=== PATIENT | male | born 1950 | race Caucasian/White ===

== ENCOUNTER 2020-10-27 14:52 | Outpatient (REF) | payer OTHER, SELFPAY ==
[2020-10-28 11:31] LABS: SARS COV2 PCR INHOUSE NEGATIVE (Negative)
== END 2020-10-27 14:53 | disposition home or self-care (01) ==
LOC: HO.LAB 14:52
PROVIDERS: Visit Provider Internal Medicine
DX: Z20.822 Contact with and (suspected) exposure to COVID-19 (principal)
CPT/HCPCS: C9803; U0003

== ENCOUNTER → 2023-01-23 14:04 | Outpatient (BNVA) | payer SELFPAY | PROVIDERS: PCP Nurse Practitioner Family; Visit Provider Surgery | DX: K40.90 Unilateral inguinal hernia, without obstruction or gangrene, not specified as recurrent (principal) | CPT/HCPCS: 99202 ==

== ENCOUNTER 2023-02-12 11:02 | Day surgery (SDC) | payer SELFPAY ==
[2023-02-08 13:31] VITALS: BMI 22.4
--- NOTE | 2023-02-11 09:01 | MHC.SHP ---
Pre-Procedural Eval Section A Date of Service: 02/11/23 The patient is an INPATIENT: No Changes since office visit: No Cold of Flu in the past 2 weeks, No New Medical Problems, No Changes in Medication and No Patient answered all questions The History & Physical has been completed within 30 days and I have reviewed it.: Yes Section B Chief Complaint: Unilateral inguinal hernia, without obstruction or Allergies: Allergies Allergy/AdvReac Type Severity Reaction Status Date / Time No Known Allergies Allergy Verified 01/23/23 14:13 Plan I have reviewed the history and physical and performed a pertinent physical examination on my patient. No changes have occurred unless specified. Time Spent With Patient Time: Total time managing care of this patient today ____ minutes.
--- NOTE | 2023-02-11 11:07 | HO.ANESPROP2 ---
Documented by User: Sujatha Lake NP 02/11/23 11:09 HPI - Anesthesia Eval Consult details Narrative: 73yo M for Left Hernia Repair Inguinal open with mesh PMFSH Active Problems Active Problems: All Active Problems (Updated 01/23/23 @ 14:37 by Jovi Galvan MD) Left inguinal hernia (Acute) Past Medical History Medical History Left inguinal hernia Smoker Surgical History Surgical History History of hernia repair Social History Social History Housing: Apartment Alcohol intake: current Alcohol intake frequency: does not drink Patient Tobacco Use Status: Current everyday Tobacco user Tobacco use type: Cigarette Cigarette Packs Per Day: 0.5 Cigarettes Per Day: 7 e-Cigarette/Vaping Use: Never Used Second Hand Smoke Exposure: No Use of substances other than those prescribed or required for medical reasons: No Are you DNR?: No Advance Directives: No Advance Directives Information Provided: Yes Advance Directives on File: No service: No Current occupational status: retired Current occupational exposures/hazards: No Cognitive needs: No Hearing needs: No Vision needs: No Meds Allergies Allergy/AdvReac Type Severity Reaction Status Date / Time No Known Allergies Allergy Verified 01/23/23 14:13 Home Medications Medication Instructions Recorded Confirmed Last Taken Type No Known Home Meds 01/14/23 02/08/23 Unknown History Exam Exam Date and Time: February 11, 2023 1107 Height,Weight and Vital Signs: Height 5 ft 9 in Weight 68.946 kg Assessment and Plan Assessment Anesthesia Assessment: Chart Reviewed Documented by User: Karon Bruno MD 02/12/23 12:18 PMFSH Active Problems Active Problems: All Active Problems (Updated 02/12/23 @ 12:05 by Karon Bruno MD) Left inguinal hernia (Acute) Smoker. Last cigarette this am Past Medical History Medical History Left inguinal hernia Smoker Family History Family history of problems with anesthesia: No Surgical History Surgical History History of hernia repair History of Problems with Anesthesia: Yes (Had unpleasant vivid dreams after) Social History Social History Housing: Apartment Alcohol intake: current Alcohol intake frequency: does not drink Patient Tobacco Use Status: Current everyday Tobacco user Tobacco use type: Cigarette Cigarette Packs Per Day: 0.5 Cigarettes Per Day: 7 e-Cigarette/Vaping Use: Never Used Second Hand Smoke Exposure: No Use of substances other than those prescribed or required for medical reasons: No Are you DNR?: No Advance Directives: No Advance Directives Information Provided: Yes Advance Directives on File: No service: No Current occupational status: retired Current occupational exposures/hazards: No Cognitive needs: No Hearing needs: No Vision needs: No Meds Allergies Allergy/AdvReac Type Severity Reaction Status Date / Time No Known Allergies Allergy Verified 01/23/23 14:13 Home Medications Medication Instructions Recorded Confirmed Last Taken Type No Known Home Meds 01/14/23 02/08/23 Unknown History Exam Height,Weight and Vital Signs: Height 5 ft 9 in Weight 68.946 kg Vital Signs Temp Pulse Resp BP Pulse Ox O2 Del Method 02/12/23 11:41 98.8 F 87 16 143/76 H 96 Room Air Airway Mallampati Class: II TM Dist: >3cm Neck ROM: Full Loose/Missing/Broken Teeth: No (Numerous dental implants. Denies broken, loose, missing teeth) Heart: RRR Lungs: CTAB Assessment and Plan Assessment Anesthesia Assessment: Anesthesia Plan Discussed Final Anesthetic Review Family History of Problems with Anesthesia: No History of Problems with Anesthesia: Yes (Had unpleasant vivid dreams after) NPO: Yes ASA Class: II Final Preanesthetic Review: No Changes in Pt Med Stat, Meds/Allgs Chart Reviewed, Consent Obtained/Reviewed and Anes Risks/Benef Reviewed Patient Risk: Low Procedure Risk: Low Assessment/Block/Sedation in SS: Assess/Block/Sedation-SS Anesthetic Plan Anesthetic Plan: GA and MAC: Disposition: Standard PACU
[2023-02-12 11:41] VITALS: BP 143/76; PULSE 87; RESP 16; TEMP 37.1; O2SAT 96
[2023-02-12] MEDS: Lactated Ringers 1,000 ML 100 ML IVCONT (11:52)
--- NOTE | 2023-02-12 13:48 | W.PM.OPN ---
Operative Note Operative Note Date of Service: 02/12/23 Narrative: Preoperative diagnosis: [] Symptomatic left inguinal hernia Postop diagnosis: [] Same Procedure [] open repair with Bard mesh left inguinal hernia Surgeon: [] Cole Organizational Effectiveness Consultant: [] WILLIAM Soria Type of Anesthesia: [] MAC Indication for surgery: [] Very large indirect left inguinal hernia. No direct hernia demonstrated. Findings: [] Patient brought to the operating room, placed on the operative table in a supine position, after adequate level of MAC anesthesia was induced, the left groin was prepped and draped in usual sterile fashion preemptive 0.5 Marcaine/1% lidocaine infiltration of the ileo- inguinal nerve as well as the over the incision site was performed. A small left para inguinal incision was made and carried down through skin, subcutaneous tissue, Ranjit's fascia. External oblique fibers were opened in their direction with care to isolate and preserve the ilioinguinal nerve throughout the procedure. Spermatic cord was identified and retracted from the field. No direct hernia was demonstrated. A very large indirect hernia sac was from the spermatic cord and reduced. A Bard plug was placed in this indirect defect, and sutured inferiorly to the inguinal ligament, and superiorly to the transversalis fascia using interrupted 0 Ethibond suture. At completion procedure, mesh was in good position with no gaps and also covereed the inguinal floor completely. Wound was irrigated, secured hemostasis, and closed in the following manner; external oblique fascia was reapproximated using running 2-0 Vicryl sutures. Ranjit's fascia was closed using interrupted 3-0 Vicryl sutures. Interrupted inverted deep dermal 3-0 Vicryl sutures followed by running subcuticular 4-0 Vicryl sutures were placed. Steri-Strips and sterile dressings were applied. Ipsilateral testicles intrascrotal at completion the procedure. Sponge, needle, and instrument counts were reported to be correct. Patient tolerated the procedure well and emerged anesthesia stable condition. EBL minimal
[2023-02-12 13:56] VITALS: BP 108/63; PULSE 64; RESP 16; TEMP 36.6; O2SAT 98
[2023-02-12 14:10] VITALS: BP 134/75; PULSE 73; RESP 16; O2SAT 98
== END 2023-02-12 15:16 | disposition home or self-care (01) ==
PROVIDERS: Visit Provider Surgery
PROC: (CPT 49505; principal; 2023-02-12 12:30)
DX: K40.90 Unilateral inguinal hernia, without obstruction or gangrene, not specified as recurrent (principal)
CPT/HCPCS: 49505; C1781; J0690; J2250; J2795; J3010

== ENCOUNTER → 2023-02-12 11:02 | Outpatient (BNV) | payer SELFPAY | PROVIDERS: Visit Provider Surgery | DX: K40.90 Unilateral inguinal hernia, without obstruction or gangrene, not specified as recurrent (principal) | CPT/HCPCS: 49505 ==

== ENCOUNTER 2023-02-22 11:15 | Outpatient (AMB) | payer SELFPAY ==
[2023-02-22 11:20] VITALS: BP 130/87; PULSE 104
--- NOTE | 2023-02-22 11:20 | A.OFFVIS_ITS ---
Intake Vital Signs 02/22/23 11:20 Weight 150 lb BP 130/87 Blood Pressure Location Rt brachial Position Sitting Pulse 104 H Intake Visit Reasons: S/P LIH repair w/mesh Intake Note: Patient here s/p LIH repair w/mesh. Patient reports incisions healing well. Denies bleeding or oozing. Never took pain meds. Autocad Designer Required: No Accompanied by: Self / Same As Patient Allergies No Known Allergies Allergy (Verified 02/22/23 11:22) HPI HPI Comments History of Present Illness Details Patient presents for follow-up. Aside from mild incisional discomfort is doing well. He has tolerated diet. He is having normal bowel habits.. He is increasing his activity level. [facility] Medical History Left inguinal hernia Smoker Surgical History History of hernia repair Social History Housing: Apartment Alcohol intake: current Alcohol intake frequency: does not drink Patient Tobacco Use Status: Current everyday Tobacco user Tobacco use type: Cigarette Cigarette Packs Per Day: 0.5 Cigarettes Per Day: 7 e-Cigarette/Vaping Use: Never Used Second Hand Smoke Exposure: No service: No Current occupational status: retired Current occupational exposures/hazards: No Cognitive needs: No Hearing needs: No Vision needs: No Physical Exam Vital Signs: Last Vital Signs Pulse 104 H 02/22/23 11:20 BP 130/87 02/22/23 11:20 GI Other: Abdomen soft. Wound clean dry and intact Assessment & Plan Assessment & Plan (1) Left inguinal hernia: Code(s): K40.90 - Unilateral inguinal hernia, without obstruction or gangrene, not specified as recurrent Plan Patient has been given local wound instructions, and will follow-up p.r.n. Coding Level of Care Code Global (15298) Diagnoses Left inguinal hernia K40.90
== END 2023-02-22 11:54 | disposition home or self-care (01) ==
PROVIDERS: PCP Nurse Practitioner Family; Visit Provider Surgery
DX: K40.90 Unilateral inguinal hernia, without obstruction or gangrene, not specified as recurrent (principal)
CPT/HCPCS: 99024

== ENCOUNTER → 2023-02-22 11:15 | Outpatient (BNVA) | payer SELFPAY | PROVIDERS: PCP Nurse Practitioner Family; Visit Provider Surgery ==

== ENCOUNTER 2023-03-18 09:35 | Outpatient (AMB) | payer MEDICARE, SELFPAY ==
[2023-03-18 09:32] VITALS: BP 102/68; PULSE 90; O2SAT 98; BMI 22.1
--- NOTE | 2023-03-18 09:32 | MHC.PC.OV ---
Vital Signs 03/18/23 09:32 Height 5 ft 9 in Weight 150 lb BMI 22.1 BP 102/68 Blood Pressure Location Lt brachial Position Sitting Pulse 90 Pulse Source Pulse Oximeter Temp Source Skin Pulse Oximetry (%) 98 Oxygen Delivery Method Room Air Intake Visit Reasons: 03/25 RT eye 04/08 LT eye Cataract Surgery Intake Note: Patient is here for a Pre-op for Cataract Surgery scheduled with Dr. Villar on 03/25 RT and 04/08 LT Director Of Annual Giving Required: No Accompanied by: Self / Same As Patient Allergies No Known Allergies Allergy (Verified 03/18/23 09:35) Tobacco use date assessed: 03/18/23 Fall risk assessment: No Falls in past year Last assessed Fall Risk: 03/18/23 Dental Screening Dental Screen Date: 03/18/23 Did you have a dental visit in the last 12 months?: Yes Did you have a dental problem in the last 6 months where you did not have access to dental care?: No Was dental information given to patient?: Patient has dentist HPI 03/25 RT eye 04/08 LT eye Cataract Surgery HPI Details having bilat cataracts; healthy on no meds PFSH Medical History Left inguinal hernia Smoker Surgical History (Updated 02/26/23 @ 08:34 by Shefali Gil RN) History of hernia repair Social History Housing: Apartment Alcohol intake: current Alcohol intake frequency: does not drink Patient Tobacco Use Status: Current everyday Tobacco user Tobacco use type: Cigarette Cigarette Packs Per Day: 0.5 Cigarettes Per Day: 7 e-Cigarette/Vaping Use: Never Used Second Hand Smoke Exposure: No service: No Current occupational status: retired Current occupational exposures/hazards: No Cognitive needs: No Hearing needs: No Vision needs: No Questionnaire Thrive Questionnaire Date Thrive assessed: 01/14/23 AUDIT C Alcohol Use Questionnaire (AUDIT-C) 1. How often do you have a drink containing alcohol?: Never 3. How often do you have six or more drinks on one occasion?: Never Total Score: 0 LYNDSEY-7 AMB Questionnaire LYNDSEY-7 Date LYNDSEY - 7 assessed: 01/14/23 Source: Developed by Drs. Kem Bass, Karina Lucas, Chavo Orozco and colleagues, with an educational sofia from [employer]. Review of Systems Const Denies chills, Denies fatigue, Denies headache(s) and Denies weight loss Eyes Denies change in vision, Denies diplopia and Denies eye pain ENT Denies vertigo, Denies dizziness, Denies headache(s) and Denies nasal discharge Card Denies chest pain, Denies rapid heart rate and Denies dyspnea on exertion Resp Denies chest congestion, Denies cough, Denies pain with cough and Denies dyspnea on exertion GI Denies abdominal pain, Denies hematochezia and Denies change in bowel habits Musc Denies myalgias, Denies arthralgias and Denies joint swelling Skin/Breast Denies lesions and Denies unusual bruising Neuro Denies vertigo, Denies dizziness, Denies headache(s) and Denies focal weakness Endo Denies fatigue Physical exam (Primary Care) Vital Signs: Last Vital Signs Pulse 90 03/18/23 09:32 BP 102/68 03/18/23 09:32 Pulse Ox 98 03/18/23 09:32 Oxygen Delivery Method Room Air 03/18/23 09:32 BMI result Body Mass Index 22.1 Tobacco/Smoking Status: Tobacco use Status Tobacco use date assessed 03/18/23 03/18/23 09:39 Patient Tobacco Use Status Current everyday Tobacco 03/18/23 09:39 Tobacco use type Cigarette 03/18/23 09:39 e-Cigarette/Vaping Use Never Used 03/18/23 09:39 Thrive Assessment: Date of Thrive Assessment Date Thrive assessed 01/14/23 03/18/23 09:39 Const General: cooperative, healthy appearing and no acute distress Orientation/consciousness: oriented to person, oriented to place and oriented to time [facility] Head: Yes normal to inspection, Yes normocephalic and Yes atraumatic Mouth: Normal oral and palatal mucosa present and tongue normal Throat: Yes posterior oropharynx normal and Yes uvula midline Eyes General: appearance normal, both eyes and all related structures Neck Neck: Yes normal visual inspection, Yes full ROM and Yes no lymphadenopathy Thyroid: Thyroid normal Carotids: normal carotid upstroke Chest Chest palpation & inspection: normal inspection of the chest Resp Effort & Inspection: normal respiratory effort and able to speak in complete sentences Auscultation: clear to auscultation bilaterally Cardio Jugular venous distension: no JVD Palpation: normal PMI Rate: regular rate Rhythm: regular rhythm Heart sounds: S1 normal heart sound present and S2 normal heart sound present GI Inspection: Yes normal to inspection Palpation (GI): Soft to palpation and No hepatosplenomegaly present Auscultation: normal bowel sounds General: Yes no CVA tenderness Back/Spine/Pelvis Back: no CVA tenderness Skin General skin exam: no rashes or lesions noted Neuro General: oriented to person, oriented to place and oriented to time Extrem General: Yes normal to inspection and Yes full ROM Assessment and Plan Assessment & Plan (1) Preop exam for internal medicine: Code(s): Z01.818 - Encounter for other preprocedural examination Plan: healthy; low risk for cardiovascular complications; cleared for surgery Coding Level of Care Code Est Pt Level 4 (41668) Diagnoses Preop exam for internal medicine Z01.818
== END 2023-03-18 09:59 | disposition home or self-care (01) ==
PROVIDERS: Visit Provider Internal Medicine
DX: Z01.818 Encounter for other preprocedural examination (principal)
CPT/HCPCS: 99214

== ENCOUNTER 2023-03-25 08:56 | Day surgery (SDC) | payer MEDICARE, OTHER, SELFPAY ==
[2023-03-20 08:49] VITALS: BMI 22.1
--- NOTE | 2023-03-22 08:25 | MHC.SHP ---
Pre-Procedural Eval Section A Date of Service: 03/22/23 The patient is an INPATIENT: No Changes since office visit: No Cold of Flu in the past 2 weeks, No New Medical Problems, No Changes in Medication and No Patient answered all questions The History & Physical has been completed within 30 days and I have reviewed it.: Yes Section B Chief Complaint: Age-related nuclear cataract, right eye Allergies: Allergies Allergy/AdvReac Type Severity Reaction Status Date / Time No Known Allergies Allergy Verified 03/18/23 09:35 Plan Diagnosis/Plan: Unchanged I have reviewed the history and physical and performed a pertinent physical examination on my patient. No changes have occurred unless specified. Time Spent With Patient Time: Total time managing care of this patient today ____ minutes.
--- NOTE | 2023-03-22 09:42 | HO.ANESPROP2 ---
Documented by User: Sujatha Lake NP 03/22/23 09:42 HPI - Anesthesia Eval Consult details Narrative: 73yo M for Right Cataract Extraction IOL Insertion Medically optimized No previous cataract on record [facility] Active Problems Active Problems: All Active Problems (Updated 02/26/23 @ 08:34 by Shefali Gil RN) Preop exam for internal medicine (Acute) Left inguinal hernia (Acute) Past Medical History Medical History Left inguinal hernia Smoker Family History Family history of problems with anesthesia: No Surgical History Surgical History (Updated 02/26/23 @ 08:34 by Shefali Gil RN) History of hernia repair History of Problems with Anesthesia: Yes (Had unpleasant vivid dreams after) Social History Social History Housing: Apartment Alcohol intake: current Alcohol intake frequency: does not drink Patient Tobacco Use Status: Current everyday Tobacco user Tobacco use type: Cigarette Cigarette Packs Per Day: 0.5 Cigarettes Per Day: 10 e-Cigarette/Vaping Use: Never Used Second Hand Smoke Exposure: No Use of substances other than those prescribed or required for medical reasons: No Advance Directives: No Advance Directives Information Provided: Yes (brochure mailed) Advance Directives on File: No service: No Current occupational status: retired Current occupational exposures/hazards: No Cognitive needs: No Hearing needs: No Vision needs: No Meds Allergies Allergy/AdvReac Type Severity Reaction Status Date / Time No Known Allergies Allergy Verified 03/18/23 09:35 Home Medications Medication Instructions Recorded Confirmed Last Taken Type No Known Home Meds 03/18/23 03/20/23 Unknown History Exam Exam Date and Time: March 22, 2023 0942 Height,Weight and Vital Signs: Height 5 ft 9 in Weight 68.039 kg Assessment and Plan Assessment Anesthesia Assessment: Chart Reviewed Final Anesthetic Review Family History of Problems with Anesthesia: No History of Problems with Anesthesia: Yes (Had unpleasant vivid dreams after) Documented by User: Pedro Garrett MD 03/25/23 15:49 [facility] Past Medical History Medical History Left inguinal hernia Smoker Surgical History Surgical History (Updated 02/26/23 @ 08:34 by Shefali Gil RN) History of hernia repair Social History Social History Housing: Apartment Alcohol intake: current Alcohol intake frequency: does not drink Patient Tobacco Use Status: Current everyday Tobacco user Tobacco use type: Cigarette Cigarette Packs Per Day: 0.5 Cigarettes Per Day: 10 e-Cigarette/Vaping Use: Never Used Second Hand Smoke Exposure: No Use of substances other than those prescribed or required for medical reasons: No Advance Directives: No Advance Directives Information Provided: Yes (brochure mailed) Advance Directives on File: No service: No Current occupational status: retired Current occupational exposures/hazards: No Cognitive needs: No Hearing needs: No Vision needs: No Meds Allergies Allergy/AdvReac Type Severity Reaction Status Date / Time No Known Allergies Allergy Verified 03/18/23 09:35 Home Medications Medication Instructions Recorded Confirmed Last Taken Type No Known Home Meds 03/18/23 03/20/23 Unknown History Exam Airway Mallampati Class: IV Loose/Missing/Broken Teeth: Yes Assessment and Plan Final Anesthetic Review NPO: Yes ASA Class: II Final Preanesthetic Review: Meds/Allgs Chart Reviewed, Consent Obtained/Reviewed and Anes Risks/Benef Reviewed Patient Risk: Intermediate Procedure Risk: Intermediate Anesthetic Plan Anesthetic Plan: MAC: and Agree w/ Assess. and Plan Disposition: Standard PACU
[2023-03-25 09:45] VITALS: BP 140/70; PULSE 78; RESP 16; TEMP 36.7; O2SAT 97
[2023-03-25] MEDS: Lactated Ringers 500 ML 50 ML IV (09:46)
[2023-03-25] MEDS: Tetracaine HCl/PF 0.5% Oph Sol 4 ML DROPS 1 DROP EYE-RIGHT (09:46)
[2023-03-25] MEDS: Cyclopentolate 1 % Ophth Sol 2 ML DRPBTL 1 DROP EYE-RIGHT ×3 (09:47→09:53)
[2023-03-25] MEDS: Ketorolac Tromethamine 0.5% Op 5 ML DROPS 1 DROP EYE-RIGHT ×3 (09:48→09:54)
[2023-03-25] MEDS: Tropicamide 1 % Ophth Sol 3 ML BTL 1 DROP EYE-RIGHT ×3 (09:48→09:54)
[2023-03-25] MEDS: Phenylephrine HCL 2.5% Oph SoL 2 ML BOTTLE 1 DROP EYE-RIGHT ×3 (09:51→09:55)
--- NOTE | 2023-03-25 11:05 | HO.PNOPHT ---
Ophthalmology Procedure Procedure Date of Service: 03/25/23 Ophthalmology Viscoelastic: Briana Cleary Dual Pack Pro Ophthalmology Lenses: TECPRECIOUS [id number] (23) Procedure Notes: PREOPERATIVE DIAGNOSIS: Decreased visual acuity right eye secondary to cataract POSTOPERATIVE DIAGNOSIS: Same PROCEDURE: Right cataract extraction with intraocular lens insertion SURGEON: David Villar M.D. ANESTHESIA: Topical/MAC ESTIMATED BLOOD LOSS: None COMPLICATIONS: None After obtaining informed consent, the patient was brought to the operating room suite and placed in the supine position. After adequate sedation per anesthesia, topical drops of Tetracaine were given to the right eye. The eye was then prepped and draped in the usual sterile fashion. The operating room microscope was then positioned over the operative eye and a lid speculum placed. A paracentesis was created. Viscoelastic was then instilled into the anterior chamber. A three plane incision was then created temporally, utilizing a 2.85 mm keratome. Capsulotomy forceps were then utilized to create a circular tear capsulotomy. Hydrodissection and hydrodelineation were carried out until adequate mobilization of the nucleus occurred. Phacoemulsification was then utilized to remove the dense central nucleus followed by removal of the cortical material utilizing the automated aspiration irrigation unit. Viscoelastic was instilled into the posterior capsular bag followed by placement of a posterior chamber intraocular lens without difficulty. The residual Viscoelastic was then removed utilizing the automated IA machine. The wound was checked and found to be watertight. The patient tolerated the procedure well and the lid speculum was removed. Intracameral injection of Vigamox 0.1 mL followed by a subtenon injection of Kenalog-40 0.2 mL were administered. The patient will be seen in the a.m.
[2023-03-25 11:25] VITALS: BP 123/74; PULSE 75; RESP 19; TEMP 36.8; O2SAT 100
== END 2023-03-25 11:40 | disposition home or self-care (01) ==
PROVIDERS: Visit Provider Ophthalmology
PROC: (CPT 66985; principal; 2023-03-25 11:20)
DX: H25.11 Age-related nuclear cataract, right eye (principal); H54.7 Unspecified visual loss; H52.13 Myopia, bilateral; F17.210 Nicotine dependence, cigarettes, uncomplicated; F19.11 Other psychoactive substance abuse, in remission
CPT/HCPCS: 66984; J3010; J3301; V2632

== ENCOUNTER 2023-04-08 09:00 | Day surgery (SDC) | payer MEDICARE, OTHER, SELFPAY ==
[2023-03-20 08:52] VITALS: BMI 22.1
--- NOTE | 2023-04-05 07:56 | MHC.SHP ---
Pre-Procedural Eval Section A Date of Service: 04/05/23 The patient is an INPATIENT: No Changes since office visit: No Cold of Flu in the past 2 weeks, No New Medical Problems, No Changes in Medication and No Patient answered all questions The History & Physical has been completed within 30 days and I have reviewed it.: Yes Section B Chief Complaint: Age-related nuclear cataract, left eye Allergies: Allergies Allergy/AdvReac Type Severity Reaction Status Date / Time No Known Allergies Allergy Verified 03/18/23 09:35 Plan Diagnosis/Plan: Unchanged I have reviewed the history and physical and performed a pertinent physical examination on my patient. No changes have occurred unless specified. Time Spent With Patient Time: Total time managing care of this patient today ____ minutes.
[2023-04-08] MEDS: Tetracaine HCl/PF 0.5% Oph Sol 4 ML DROPS 1 DROP EYE-LEFT (09:49)
[2023-04-08] MEDS: Cyclopentolate 1 % Ophth Sol 2 ML DRPBTL 1 DROP EYE-LEFT ×3 (09:49→09:58)
[2023-04-08] MEDS: Tropicamide 1 % Ophth Sol 3 ML BTL 1 DROP EYE-LEFT ×3 (09:49→09:58)
[2023-04-08] MEDS: Phenylephrine HCL 2.5% Oph SoL 2 ML BOTTLE 1 DROP EYE-LEFT ×3 (09:49→09:58)
[2023-04-08] MEDS: Ketorolac Tromethamine 0.5% Op 5 ML DROPS 1 DROP EYE-LEFT ×3 (09:50→09:58)
[2023-04-08 10:00] VITALS: BP 127/79; PULSE 84; RESP 18; TEMP 36.5; O2SAT 99
--- NOTE | 2023-04-08 10:15 | PC.NURSE ---
patient is not having anesthesia today.
--- NOTE | 2023-04-08 10:43 | HO.PNOPHT ---
Ophthalmology Procedure Procedure Date of Service: 04/08/23 Ophthalmology Viscoelastic: Healrachael Duet Dual Pack Pro Ophthalmology Lenses: TECNIS [id number] (22.5) Procedure Notes: PREOPERATIVE DIAGNOSIS: Decreased visual acuity left eye secondary to cataract POSTOPERATIVE DIAGNOSIS: Same PROCEDURE: Left cataract extraction with intraocular lens insertion SURGEON: David Villar M.D. ANESTHESIA: Topical ESTIMATED BLOOD LOSS: None COMPLICATIONS: None After obtaining informed consent, the patient was brought to the operation room suite and placed in the supine position. After adequate sedation per anesthesia, topical drops of Tetracaine were given to the left eye. The eye was then prepped and draped in the usual sterile fashion. The operating room microscope was then positioned over the operative eye and a lid speculum placed. A paracentesis was created. Viscoelastic was then instilled into the anterior chamber. A three plane incision was then created temporally, utilizing a 2.85 mm keratome. Capsulotomy forceps were then utilized to create a circular tear capsulotomy. Hydrodissection and hydrodelineation were carried out until adequate mobilization of the nucleus occurred. Phacoemulsification was then utilized to remove the dense central nucleus followed by removal of the cortical material utilizing the automated aspiration irrigation unit. Viscoat elastic was instilled into the posterior capsular bag followed by placement of a posterior chamber intraocular lens without difficulty. The residual Viscoat elastic was then removed utilizing the automated IA machine. The wound was check and found to be watertight. The patient tolerated the procedure well and the lid speculum was removed. Intracameral injection of Vigamox 0.1 mL followed by a subtenon injection of Kenalog-40 0.2 mL were administered. The patient will be seen in the a.m.
[2023-04-08 11:04] VITALS: BP 128/78; PULSE 82; RESP 18; TEMP 36.6; O2SAT 99
== END 2023-04-08 11:12 | disposition home or self-care (01) ==
PROVIDERS: PCP Nurse Practitioner Family; Visit Provider Ophthalmology
PROC: (CPT 66985; principal; 2023-04-08 11:20)
DX: H25.12 Age-related nuclear cataract, left eye (principal); H52.13 Myopia, bilateral; F17.210 Nicotine dependence, cigarettes, uncomplicated
CPT/HCPCS: 66984; J3301; V2632

== ENCOUNTER 2023-08-06 07:57 | Outpatient (AMB) | payer MEDICARE, SELFPAY ==
[2023-08-06 08:06] VITALS: BP 138/72; PULSE 90; O2SAT 98; BMI 22.6
--- NOTE | 2023-08-06 08:06 | MHC.PC.OV ---
Vital Signs 08/06/23 08:06 Height 5 ft 9 in Weight 153 lb BMI 22.6 BP 138/72 Blood Pressure Location Lt brachial Position Sitting Pulse 90 Pulse Source Pulse Oximeter Pulse Oximetry (%) 98 Oxygen Delivery Method Room Air Intake Visit Reasons: sleep lab/ neurologist referrals Allergies No Known Allergies Allergy (Verified 08/07/23 05:39) Medication List - Last Reconciled 08/07/23 by Joe Reyna MD No Known Home Meds Tobacco use date assessed: 08/06/23 Fall risk assessment: No Falls in past year Last assessed Fall Risk: 08/06/23 Dental Screening Dental Screen Date: 08/06/23 Did you have a dental visit in the last 12 months?: Yes Did you have a dental problem in the last 6 months where you did not have access to dental care?: No Was dental information given to patient?: Patient has dentist HPI sleep lab/ neurologist referrals HPI Details 73-year-old male presents to the office wishing to discuss his medical health. I will be his primary care provider as his current provider has left the practice. Patient is reporting for the past month he is experiencing increasing drowsiness. It happens during the daytime. Symptoms began with tingling in the lip followed by extreme grogginess and then he falls asleep for 2 hours. He wakes up suddenly fatigue and the back of his neck is painful. Currently he has on no medications. Reports no urinary incontinence. No body injuries. Also begins to report that his neighbors are troubling him. He is convinced that they are initiating the above symptoms. He lives alone. Gives no history of mental health issues in the past. [facility] Medical History Hx of cataract Smoker Left inguinal hernia Surgical History History of hernia repair Social History Housing: Apartment Alcohol intake: current Alcohol intake frequency: does not drink Patient Tobacco Use Status: Current everyday Tobacco user Tobacco use type: Cigarette Cigarette Packs Per Day: 0.5 Cigarettes Per Day: 10 e-Cigarette/Vaping Use: Never Used Second Hand Smoke Exposure: No service: No Current occupational status: retired Current occupational exposures/hazards: No Cognitive needs: No Hearing needs: No Vision needs: Yes Questionnaire PHQ-9 Over the last 2 weeks, how often have you been bothered by any of the following problems? 1. Little interest or pleasure in doing things: not at all 2. Feeling down, depressed, or hopeless: not at all 3. Trouble falling or staying asleep, or sleeping too much: not at all 4. Feeling tired or having little energy: not at all 5. Poor appetite or overeating: not at all 6. Feeling bad about yourself - or that you are a failure or have let yourself or your family down: not at all 7. Trouble concentrating on things, such as reading the newspaper or watching television: not at all 8. Moving or speaking so slowly that other people could have noticed. Or the opposite - being so fidgety or restless that you have been moving around a lot more than usual: not at all 9. Thoughts that you would be better off or of hurting yourself in some way: not at all Total score: 0 Depression Screening Interpretation: Negative Depression Screening Done: Yes 24016 - PHQ-9 Billing: Yes Source: Developed by Drs. Kem Bass, Karina Lucas, Chavo Orozco and colleagues, with an educational sofia from [employer] Thrive Questionnaire Date Thrive assessed: 08/06/23 I am a: Patient What is your living situation today?: I have a steady place to live Within the past 12 months, did the food you bought not last and you didn't have the money to get more?: Never true Within the past 12 months, did you worry whether your food would run out before you got money to buy more?: Never true Do you have trouble paying for medicines?: No Do you have trouble getting transportation to medical appointments?: No Do you have trouble paying your heating and electricity bill?: No Do you have trouble taking care of your child, family member or friend?: No Do you have trouble with day-to-day activities such as bathing, preparing meals, shopping, managing finances, etc.?: No Are you currently unemployed and looking for a job?: No Are you interested in more education?: No Currently or been in a relationship where the following occur: no concerns reported AUDIT C Alcohol Use Questionnaire (AUDIT-C) 1. How often do you have a drink containing alcohol?: Never 3. How often do you have six or more drinks on one occasion?: Never Total Score: 0 LYNDSEY-7 AMB Questionnaire LYNDSEY-7 Date LYNDSEY - 7 assessed: 08/06/23 Feeling nervous, anxious, or on edge: 0 = Not at all Not being able to stop or control worryin = Not at all Worrying too much about different things: 0 = Not at all Trouble relaxin = Not at all Being so restless that it is hard to sit still: 0 = Not at all Becoming easily annoyed or irritable: 0 = Not at all Feeling afraid as if something awful might happen: 0 = Not at all Total LYNDSEY-7 score (0-4 normal; 5-9 mild; 10-14 moderate; 15-21 severe): 0 Source: Developed by Drs. Kem Bass, Karina Lucas, Chavo Orozco and colleagues, with an educational sofia from [employer] Physical exam (Primary Care) Vital Signs: Last Vital Signs Pulse 90 08/06/23 08:06 BP 138/72 08/06/23 08:06 Pulse Ox 98 08/06/23 08:06 Oxygen Delivery Method Room Air 08/06/23 08:06 BMI result Body Mass Index 22.6 Tobacco/Smoking Status: Tobacco use Status Tobacco use date assessed 08/06/23 08/06/23 08:14 Patient Tobacco Use Status Current everyday Tobacco 08/06/23 08:14 Tobacco use type Cigarette 08/06/23 08:14 e-Cigarette/Vaping Use Never Used 08/06/23 08:14 PHQ-9: PHQ-9 Score PHQ-9: Total score 0 08/06/23 08:14 Depression Screening Interpretation: Negative Thrive Assessment: Date of Thrive Assessment Date Thrive assessed 08/06/23 08/06/23 08:14 Currently or been in a relationship where the following occur: no concerns reported Const General: cooperative and healthy appearing Nutritional Appearance: well nourished Orientation/consciousness: patient oriented x3 Limitations: no limitations HENMT Head: Yes normal to inspection Eyes General: appearance normal, both eyes and all related structures Neck Neck: Yes normal visual inspection Chest Chest palpation & inspection: normal palpation of entire chest wall Resp Effort & Inspection: normal respiratory effort Neuro General: patient oriented x3 Assessment and Plan Assessment & Plan (1) Drowsiness: Code(s): R40.0 - Somnolence Plan: Seizure disorder has to be ruled out. A neurology consult will be placed. With this degree of paranoia, I suspect he may be having an underlying mental health issues that patient has not admitted to me. Once organic brain disease is ruled out, I will initiate mental health treatment. Coding Level of Care Code Est Pt Level 4 (75381) Diagnoses Drowsiness R40.0
== END 2023-08-06 08:41 | disposition home or self-care (01) ==
PROVIDERS: PCP Nurse Practitioner Family; Visit Provider Internal Medicine
DX: R40.0 Somnolence (principal)
CPT/HCPCS: 99214

== ENCOUNTER 2023-08-07 03:29 | Emergency (ER) | payer MEDICARE, SELFPAY ==
[2023-08-07 03:39] VITALS: BP 138/77; PULSE 104; RESP 18; TEMP 36.8; O2SAT 99; BMI 22.1
[2023-08-07 03:58] LABS: MANUAL DIFF FLAG NO
[2023-08-07 04:02] LABS: Basophils Percent Auto 0.4 % (0-2); Eosinophils Absolute Auto 0.3 X10*3/uL (0.0-0.4); Eosinophils Percent Auto 3.4 % (0-4); Hematocrit 46.9 % (42.0-52.0); Hemoglobin 15.8 g/dl (14.0-18.0); Imm Gran Abs Auto 0.03 X10*3/uL (0.00-0.03); Imm Gran Pct Auto 0.4 % (0.0-0.4); Lymphocytes Absolute Auto 2.7 X10*3/uL (1.2-4.9); Lymphocytes Percent Auto 32.9 % (20-40); Mean Corpuscular HGB Conc 33.7 g/dl (31.0-36.0); Mean Corpuscular Volume 95.1 fL (80.0-98.0); Mean Platelet Volume 8.6 fL (9.4-12.4); Monocytes Absolute Auto 0.7 X10*3/uL (0.1-1.2); Monocytes Percent Auto 8.8 % (2-11); Neutrophils Absolute Auto 4.5 x10*3/uL (2.0-8.3); Neutrophils Percent Auto 54.1 % (45-73); Platelet Count 273 X10*3/uL (160-400); Red Blood Count 4.93 X10*6/uL (4.60-5.80); Red Cell Distribution Width 13.5 % (11.0-16.0); White Blood Count 8.3 X10*3/uL (4.8-10.8)
[2023-08-07 04:15] LABS: Alanine Aminotransferase 21 U/L (0-40); Albumin Level 4.1 g/dL (3.5-5.0); Alkaline Phosphatase 74 U/L (39-117); Anion Gap 15 (12-20); Aspartate Amino Transferase 19 U/L (5-37); Bilirubin Total 0.3 mg/dL (0.0-1.0); Blood Urea Nitrogen 27 mg/dL (9-16); Calcium 9.5 mg/dL (8.4-10.2); Carbon Dioxide 25 mmol/L (22-29); Chloride 107 mmol/L (96-108); Creatinine Clr Calc Pharmacy 81.3; Estimated Glomerular Filt Rate > 60; Glucose Random 116 mg/dL (60-115); Potassium 4.8 mmol/L (3.3-5.1); Sodium 142 mmol/L (135-145)
--- NOTE | 2023-08-07 07:05 | ED.GENADULT ---
HPI - General Adult General Chief complaint: General Medical Stated complaint: Pt requested Blood test Time Seen by Provider: 08/07/23 07:05 Source: patient Mode of arrival: ambulatory Limitations: no limitations History of Present Illness HPI narrative: Patient no diagnosis of dementia or psychiatric disorder seen by PCP yesterday for nonspecific symptoms comes back here as he feels somebody poisoning him looking for some poison in his body paranoid about the situation feels lower lip tingling off and on with increased drowsiness does not have a good sleep sleeping only 2-3 hours a day denies any dementia no hallucinations but as paranoid about something wrong . Ambulatory in the ED Related Data Home Medications Medication Instructions Recorded Confirmed No Known Home Meds 03/18/23 03/20/23 Allergies Allergy/AdvReac Type Severity Reaction Status Date / Time No Known Allergies Allergy Verified 08/07/23 05:39 [facility] Past Medical History Onset Date is defined in the Problem List Problems that require an onset date and time if occurred within 24 hrs of arrival to the ED Aortic Dissection and Rupture; Neurologic impairment; Cardiopulmonary Arrest; Endotracheal Intubation; Insertion or Replacement of Mechanical Circulatory Assist Device Medical History Hx of cataract Smoker Left inguinal hernia Surgical History History of hernia repair Social History Social History Housing: Apartment Alcohol intake: current Alcohol intake frequency: does not drink Patient Tobacco Use Status: Current everyday Tobacco user Tobacco use type: Cigarette Cigarette Packs Per Day: 0.5 Cigarettes Per Day: 10 e-Cigarette/Vaping Use: Never Used Second Hand Smoke Exposure: No Advance Directives: No Advance Directives Information Provided: No service: No Current occupational status: retired Current occupational exposures/hazards: No Cognitive needs: No Hearing needs: No Vision needs: Yes Physical Exam ED Vital Signs: Vital Signs - 24 hr 08/07/23 03:39 Temperature 98.2 F Pulse Rate 104 H Respiratory Rate 18 Blood Pressure 138/77 Pulse Oximetry 99 Oxygen Delivery Method Room Air BMI result Body Mass Index 22.1 Appearance: Alert. Oriented X3. No acute distress. Eyes: PERRLA, No Nystagmus ENT: Pharynx normal. Oral Mucosa moist Neck: Normal inspection. Neck supple. CVS: Normal heart rate and rhythm. Pulses normal. Respiratory: No respiratory distress. Equal air entry bilateral, no wheezing/rales/rhonchi Abdomen: Soft and nontender. Bowel sounds are present, no mass palpable, no CVA tenderness Skin: Skin warm and dry. Normal skin color. Normal skin turgor. Extremities: No lower extremity edema. No calf tenderness Neuro: Oriented X 3. No motor deficit. No sensory deficit.No cerebellar signs , cranial nerves II-XII intact Medical Decision Making Medical Decision Making [facility] Narrative: Patient nonspecific symptoms/paranoia refused to new mini mental status exam refused CT scan of the head per trazodone by his PCP yesterday screening test was negative for dementia. Patient has a follow-up plan to see a neurologist patient need neuropsych evaluation refusing any care team evaluation at this time feels stable to go home. Will follow up as outpatient Lab Data [facility] Lab Attestation statement: I reviewed the patient's lab results. 08/07/23 03:53 08/07/23 03:53 Labs: Lab Results 08/07/23 Range/Units 03:53 WBC 8.3 (4.8-10.8) X10*3/uL RBC 4.93 (4.60-5.80) X10*6/uL Hgb 15.8 (14.0-18.0) g/dl Hct 46.9 (42.0-52.0) % MCV 95.1 (80.0-98.0) fL MCH 32.0 (27.0-33.0) pg MCHC 33.7 (31.0-36.0) g/dl RDW 13.5 (11.0-16.0) % Plt Count 273 (160-400) X10*3/uL MPV 8.6 L (9.4-12.4) fL Immature Gran % (Auto) 0.4 (0.0-0.4) % Neut % (Auto) 54.1 (45-73) % Lymph % (Auto) 32.9 (20-40) % Jay % (Auto) 8.8 (2-11) % Eos % (Auto) 3.4 (0-4) % Baso % (Auto) 0.4 (0-2) % Lymph # (Auto) 2.7 (1.2-4.9) X10*3/uL Jay # (Auto) 0.7 (0.1-1.2) X10*3/uL Eos # (Auto) 0.3 (0.0-0.4) X10*3/uL Baso # (Auto) 0.0 (0.0-0.2) X10*3/uL Abs Immat Gran (auto) 0.03 (0.00-0.03) X10*3/uL Absolute Neuts (auto) 4.5 (2.0-8.3) x10*3/uL Absolute Nucleated RBC 0.000 (0.0-0.012) X10*3/uL Nucleated RBC % (auto) 0.0 (0.0-0.2) /100WBC Sodium 142 (135-145) mmol/L Potassium 4.8 (3.3-5.1) mmol/L Chloride 107 (96-108) mmol/L Carbon Dioxide 25 (22-29) mmol/L Anion Gap 15 (12-20) BUN 27 H (9-16) mg/dL Creatinine 0.79 (0.5-1.4) mg/dL Estim Creat Clear Calc 81.3 Estimated GFR > 60 Random Glucose 116 H (60-115) mg/dL Calcium 9.5 (8.4-10.2) mg/dL Total Bilirubin 0.3 (0.0-1.0) mg/dL AST 19 (5-37) U/L ALT 21 (0-40) U/L Alkaline Phosphatase 74 (39-117) U/L Total Protein 7.0 (6.5-8.0) g/dL Albumin 4.1 (3.5-5.0) g/dL Discharge Plan Discharge Clinical Impression: Paranoia Patient Disposition: Home, Self-Care Instructions: Psychotic Disorder (ED) Additional Instructions: Your possibly have psychotic disorder/early dementia Your refused evaluation by crisis Follow-up with PCP and neurologist as scheduled Your blood workup did not show any acute abnormality Prescriptions: No Action No Known Home Meds
== END 2023-08-07 07:20 | disposition home or self-care (01) ==
PROVIDERS: Emergency Provider Internal Medicine
DX: F22 Delusional disorders (principal); R41.0 Disorientation, unspecified; F43.89 Other reactions to severe stress; F29 Unspecified psychosis not due to a substance or known physiological condition; F17.210 Nicotine dependence, cigarettes, uncomplicated
CPT/HCPCS: 36415; 80053; 85025; 99282; 99283

== ENCOUNTER 2023-08-24 12:22 | Inpatient (IN) | payer MEDICARE, SELFPAY ==
--- NOTE | ~2023-08-24 | CT_ITS ---
EXAMINATION: CT HEAD WITHOUT CONTRAST CLINICAL INFORMATION: New onset delusions. COMPARISON: None TECHNIQUE: Contiguous axial imaging was performed from the skull base to vertex without intravenous administration of contrast. This CT examination was performed using dose optimization techniques as appropriate, variously including the following: *Automated exposure control *Adjustment of mA and/or kV according to patient size (this includes techniques or standardized protocols for targeted exams where dose is matched to indication/reason for exam; i.e. extremities or head) *Use of iterative reconstruction technique DLP: 840 mGy-cm FINDINGS: There is no evidence of acute intracranial hemorrhage or edematous territorial infarction. A few foci of hypoattenuation in the periventricular and deep white matter are consistent with mild microangiopathy. Allison-white matter differentiation is preserved. Proportional prominence of the ventricles and sulcal spaces. No evidence for obstructive hydrocephalus. No abnormal mass effect or midline shift. No extra-axial fluid collections. No acute soft tissue or osseous abnormalities. The mastoid air cells and paranasal sinuses are clear. Bilateral lens extraction. CT/CT head/brain wo IV con IMPRESSION: No evidence of acute intracranial hemorrhage or edematous territorial infarction.
[2023-08-24 12:33] VITALS: BP 145/80; BP 152/82; PULSE 95; PULSE 97; RESP 20; TEMP 36.5; O2SAT 100; O2SAT 99; BMI 22.1
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
[2023-08-24 13:14] LABS: MANUAL DIFF FLAG NO
[2023-08-24 13:16] LABS: Basophils Percent Auto 0.4 % (0-2); Eosinophils Absolute Auto 0.2 X10*3/uL (0.0-0.4); Hematocrit 45.2 % (42.0-52.0); Hemoglobin 15.1 g/dl (14.0-18.0); Imm Gran Abs Auto 0.03 X10*3/uL (0.00-0.03); Imm Gran Pct Auto 0.4 % (0.0-0.4); Lymphocytes Absolute Auto 2.1 X10*3/uL (1.2-4.9); Lymphocytes Percent Auto 28.3 % (20-40); Mean Corpuscular HGB Conc 33.4 g/dl (31.0-36.0); Mean Corpuscular Hemoglobin 31.7 pg (27.0-33.0); Mean Platelet Volume 8.6 fL (9.4-12.4); Monocytes Absolute Auto 0.7 X10*3/uL (0.1-1.2); Monocytes Percent Auto 9.9 % (2-11); Neutrophils Absolute Auto 4.2 x10*3/uL (2.0-8.3); Platelet Count 245 X10*3/uL (160-400); Red Blood Count 4.76 X10*6/uL (4.60-5.80); Red Cell Distribution Width 13.6 % (11.0-16.0); White Blood Count 7.3 X10*3/uL (4.8-10.8)
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
[2023-08-24 13:40] LABS: Alanine Aminotransferase 36 U/L (0-40); Albumin Level 3.8 g/dL (3.5-5.0); Alkaline Phosphatase 70 U/L (39-117); Anion Gap 14 (12-20); Aspartate Amino Transferase 26 U/L (5-37); Blood Urea Nitrogen 23 mg/dL (9-16); Calcium 8.8 mg/dL (8.4-10.2); Carbon Dioxide 25 mmol/L (22-29); Chloride 108 mmol/L (96-108); Creatinine Clr Calc Pharmacy 85.6; Estimated Glomerular Filt Rate > 60; Ethanol < 10 mg/dL; Glucose Random 95 mg/dL (60-115); Potassium 4.4 mmol/L (3.3-5.1); Sodium 143 mmol/L (135-145); Total Protein 6.4 g/dL (6.5-8.0)
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
[2023-08-24 13:52] LABS: Acetaminophen LAB < 3 mcg/mL (<30); Salicylate < 5.0 mg/dL (15-30)
[2023-08-24 13:53] LABS: Bilirubin Total 0.2 mg/dL (0.0-1.0)
[2023-08-24 14:14] LABS: Appearance Urine Clear; Color Urine Yellow; Glucose Urine UA Negative (Negative); Leukocyte Esterase Urine Negative (Negative); Nitrite Urine Negative (Negative); PH 7.5 (5.0-9.0); Urine Blood Negative (Negative); Urine Ketones Negative (Negative); Urine Protein Negative (Neg-Trace)
[2023-08-24 14:34] LABS: Amphetamine Screen Urine Not Detected (Not Detect); Barbiturates, Urine Not Detected (Not Detect); Benzodiazepines Screen Urine Not Detected (Not Detect); Cannabinoid Screen Urine Not Detected (Not Detect); Cocaine Screen Urine Not Detected (Not Detect); Fentanyl, urine Not Detected (Not Detect); Opiate Screen Urine Not Detected (Not Detect); Phencyclidine Screen Urine Not Detected (Not Detect)
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
[2023-08-24] MEDS: Nicotine Polacrilex 2 MG GUM BUCCAL ×2 (15:23→19:21)
--- NOTE | 2023-08-24 16:14 | PC.NURSE ---
Pt hyperfocused on paying for today's visit. Stating I am a self paying individual, each person I see that is more money I have to pay . Pt continuously coming to nurses station to ask questions about process of care and how many people he needs to see so he can figure out how much he will be paying. Pt able to be re-directed back to his room to calm down
[2023-08-24 16:16] VITALS: RESP 14
--- NOTE | 2023-08-24 19:51 | MHC.CARE ---
CARE Team saw this pt and he is on a [id number] and is a ming bed search.
--- NOTE | 2023-08-24 20:05 | PC.NURSE ---
Pt states he is not prescribed any medications
[2023-08-24 20:44] VITALS: BP 141/79; PULSE 85; RESP 18; TEMP 37.2; O2SAT 97
--- NOTE | 2023-08-24 22:51 | PC.NURSE ---
pt had uneventful day, patient is now sleeping, respirations even and unlabored, no apparent distress. Plan of care for ming-psych bedsearch
--- NOTE | 2023-08-25 | ECG_ITS ---
Test Reason : MED CLEAR Blood Pressure : / mmHG Vent. Rate : 087 BPM Atrial Rate : 087 BPM P-R Int : 142 ms QRS Dur : 088 ms QT Int : 356 ms P-R-T Axes : 050 -07 028 degrees QTc Int : 428 ms Normal sinus rhythm Normal ECG No previous ECGs available Referred By: Eusebia Bowen Electronically Signed By:MARQUITA PENA MD
[2023-08-25] MEDS: Nicotine Polacrilex 2 MG GUM BUCCAL ×4 (01:26→18:32)
[2023-08-25 03:03] VITALS: BP 135/77; PULSE 85; RESP 16; TEMP 36.7; O2SAT 98
--- NOTE | 2023-08-25 08:12 | MHC.CARE ---
RAD Team conducted [place] ming bedsearch, unfortunately no beds are available statewide. RAD to continue bedsearch tomorrow (08/26) if deemed necessary
--- NOTE | 2023-08-25 11:04 | PC.NURSE ---
Assumed care of patient at 1045, patient is up ambulating independently around BH pod in no apparent distress. Conversing with staff and other patients without issue. Pt is now in CT with KEVIN Linn and security for a head CT scan.
[2023-08-25 12:45] LABS: COVID-19 Test Negative (Negative); IDNOW Serial# 08D9AD1C
[2023-08-25 13:51] VITALS: RESP 18
--- NOTE | 2023-08-25 19:08 | PC.NURSE ---
patient appears to remain at rest at present respirations are even and unlabored patient appears in no distress, will continue to monitor for safety.
[2023-08-25 20:11] VITALS: BP 110/73; PULSE 86; RESP 18; TEMP 37; O2SAT 97
[2023-08-26 03:14] VITALS: BP 124/76; PULSE 75; RESP 17; TEMP 36.7; O2SAT 95
[2023-08-26] MEDS: Nicotine Polacrilex 2 MG GUM BUCCAL ×4 (05:49→21:16)
[2023-08-26 10:21] VITALS: BP 114/73; PULSE 64; TEMP 36.8; O2SAT 97
--- NOTE | 2023-08-26 10:43 | MHC.CARE ---
CARE Team received additional collateral information from Jesenia Busch , [facility] co-response clinician she stated that there has been multiple encounters with Pt and [facility]PD related to complaints that his neighbors were harassing him. These complaints appears to be escalating; Pt has been confronting the neighbors cream dipper 3am confronting on them on what he perceived as harassment and at this time it not founded. Pt neighbors having filed a police report against Pt. pt will play his piano at cream dipper hours 3/4 am as means to retaliate on them. Pt has set up tape recorder in his apartment to tyr to record the individual messing with him. Pt has declined [facility] mental health services since early June 2023 when they first got involved.
--- NOTE | 2023-08-26 14:35 | PC.NURSE ---
Deni was OOB this shift and pleasant when engaged. Appetite is good and Deni is independent with all ADL's. No behavioral concerns. Deni advocating to DC but willing to sign a CV and transfer to the floor to be further evaluated.
[2023-08-26 14:46] VITALS: BP 116/65; PULSE 96; RESP 16; TEMP 36.6; O2SAT 98
--- NOTE | 2023-08-26 14:56 | PC.NURSE ---
pt arrived on the unit @ 14:35 via wheelchair on a CV. Skin check performed, vital taken and wnl. Pt shown to room and menu completed. Per Cary CERDA RN; his belongings are in the washer. They will bring all his belongings up once his wash is done. Admission to be completed.
[2023-08-26 18:00] VITALS: BP 122/67; PULSE 84; RESP 16; TEMP 36.5; O2SAT 98
--- NOTE | 2023-08-27 01:47 | PC.ADMIT ---
A single, white, Bulgarian-speaking male, aged 73 years was [facility] at 1435 following referral from [facility] ED and CARE team. Pt signed a 3-day notice of intent to leave facility early in admission process. Pt has no previous history of inpatient hospitalization for psychiatric, substance or Etoh issues. Pt arrived to [facility] ED on 08/24/23 via EMS after second time calling 911 to report that his downstairs neighbor was using a electromagnetic pulse ray gun to to cause pt to feel sedated. Pt said this was accompanied by symptoms including: alertness accompanied by brain fog , a sense of mild wakefield with redness on hands in particular , severe headache , twitching of fingers especially little fingers , warmth in lower legs , wobbly walk , sleep apnea . Pt has a strong gait. Pt has no formal diagnosis of sleep apnea and does not use Cpap at home. Pt had purchased sheets of aluminum to place under his bed so the electromagnetic pulse ray gun can't sedate him. Pt believes the sheets of aluminum have reduced symptoms. Pt believes that symptoms have been reduced here in the hospital because he is away from the rays. Pt stated that his neighbors are plotting to to kidnap him, tie him up and shoot him. Pt presented recordings of this to [facility] with no help from them. Pt reported that this began 3-4 months ago after overhearing an argument with his neighbors. Pt felt he was targeted by neighbors after this. [facility] and [facility] have been to home numerous times in past 3-4 months. Pt was calm and cooperative upon admission and able to participate in admission. Pt declined to sign legal authorizations to disclose information to insurer, PCP, and pharmacy. Pt does not have a therapist of psychiatric medication provider. Pt is on no home medications. Pt states he prefers not to take medication and doesn't even keep Tylenol in his home. Pt declined first dose of scheduled Risperdal this evening. Pt rates anxiety as moderate, and denies depression, SI/HI, AVH. Pt denies pain or current medical issues. Pt reports recent history of cataract surgery and hernia surgery in past year. Pt denies Etoh or substance use. EDWARDS was negative. Pt is a daily smoker and has PRN nicorette 2mg ordered. Pt has received flu shot for this season already. Pt is not open to medications, but wants to know more about the symptoms he believes were caused by the electromagnetic pulse ray gun. Pt felt this was not fully assessed in the ED. [id number] is done, admission orders obtained, skin check is done. Pt completed safety tool and initial treatment plan done but both need to be signed. Pt is resting in his room on 15 minute safety checks at this time.
--- NOTE | 2023-08-27 02:33 | PC.NURSE ---
Pt signed a three day notice on 08/26/23 during admission and is up on 08/29/23.
[2023-08-27 08:00] VITALS: BP 118/58; PULSE 79; RESP 16; TEMP 36.3; O2SAT 94
[2023-08-27] MEDS: Nicotine Polacrilex 2 MG GUM BUCCAL ×4 (08:10→19:05)
[2023-08-27 08:34] LABS: Estimated Average Glucose 114 mg/dL; Hemoglobin A1c % 5.6 % (<6.0)
[2023-08-27 08:42] LABS: Cholesterol 187 mg/dL (<200); HDL Cholesterol 55 mg/dL (>40); LDL Cholesterol Calculated 114 mg/dL (<100); Triglycerides 94 mg/dL (<150)
[2023-08-27 08:57] LABS: Free T4 (Free Thyroxine) 1.09 ng/dL (0.71-1.85); Thyroid Stimulating Hormone 0.88 uIU/mL (0.32-4.0)
[2023-08-27 09:07] LABS: Folate 11.8 ng/mL (> or = 4.0); Vitamin B12 476 pg/mL (200-900)
--- NOTE | 2023-08-27 09:54 | P.HPPS_ITS ---
HPI Date of Service: 08/27/23 Chief Complaint: Episodes he believes caused by neighbors Sources of Information: patient interviewed, chart reviewed and crisis/core team assessment reviewed HPI Subjective Notes: Kwon Warning, Conditional Voluntary and 3 Day Healthcare Proxy: No Guardianship: No Medical Problems Affecting Mental Status: No Narrative: 73 yo male, reports sudden, extreme grogginess, deep sleep with brain fog and alteration in alertness upon awakening, severe headache-back/center, twitching tingling in fingers (greatest toward the little finger), sense of mild wakefield/redness-hands in particular; warmth in (most recently) lower leges, other times elsewhere, wobbly walk and snoring (sleep apnea). Pt wrote this note to describe sx. Reports these issues he believes are caused by neighbors on the third floor. This is his theory. States he is learning about his experience and in process of modification and theory development for the origin of the symptom. Reports a history with neighbors of harassment, malicious acts, police involvement. On Sat 08/24 police were called by pt to discuss his experience and theory that neighbors were precipitating sx. They perceived me as being wacko. Police offered ER eval, pt declined. He attempted to return to sleep, vented the windows (finds colder air decreases quality of episodes) but sx were severe so he decided to go to hospital for assist, however the conclusion appeared to be psychosis. Pt believes that neighbors have a focused radiation device on him through the floor and has purchased aluminium sheets to block these rays. Using these decreased headache and tingling. Identifies primary sx as going to bed, falling asleep quickly and sleeping soundly for ~2.5 hours-awakens with severe headache, back, fingers are twitching, legs are warm-this sx set occurring for ~6 weeks. Pt has recorded the episodes, hears himself snore along with distorted voices of the neighbors and sounds. Pt also believe neighbors hacked his computer when he is online. Describes neighbors and pranksters, having drug related activity, tapping mathis, tapping the radiator and conspiring to harm him. Pt has been in the apartment 3.5 years. He expresses disappointment with discounting his theory and automatic assumption of psychiatric illness. My theory of my experience of the symptoms are just conclusions that I am crazy States he still has more work to do to give himself proof that there are other explanations for sx presentation. As a result, he has signed a three day notice of intent. Past Psychiatric History: Denies Medical Evaluation Reviewed: Yes [facility], [facility] Medical History (Updated 08/27/23 @ 15:58 by Eda Gupta APRN) Adjustment reaction to chronic stress Unspecified psychosis Hx of cataract Smoker Left inguinal hernia Surgical History History of hernia repair Family History: Denies Social History: Born in [place], father was a federal employee, attended grade school in [place] when family moved for fathers work, college in [place]. Reports a non traumatic upbringing. Has traveled in the [place]. One older brother. Mom alive at 96 and in an [place] in [place], close to brother. Not , no children, no relationship. 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 Currently unemployed, has SSI and a pension along with savings. Has lived in current apartment 3.5 years Substance History: Nicotine, Caffeine Trauma History: Denies Diagnostics Vital Signs (24Hr): Vital Signs - 24 hr 08/26/23 10:21 08/26/23 14:46 08/26/23 18:00 Temperature 98.2 F 97.8 F 97.7 F Pulse Rate 64 96 84 Respiratory Rate 16 16 Blood Pressure 114/73 116/65 122/67 Pulse Oximetry 97 98 98 Oxygen Delivery Method Room Air Room Air Room Air BMI result Body Mass Index 22.1 Labs 08/24/23 13:10 08/24/23 13:10 Labs: Laboratory Results - last 48 hr 08/25/23 08/26/23 08/27/23 12:23 07:27 08:08 Estimat Average Glucose 114 Hemoglobin A1c % 5.6 Magnesium 2.0 Triglycerides 94 Cholesterol 187 LDL Cholesterol, Calc 114 H HDL Cholesterol 55 Vitamin B12 476 Folate 11.8 TSH 0.90 0.88 Free T4 1.09 COVID-19 (OSCAR) Negative COVID-19 Clin Com See Note Imaging Radiology Impressions: ITS Impressions Head CT 08/25/23 11:19 IMPRESSION: No evidence of acute intracranial hemorrhage or edematous territorial infarction. Meds/Allergies Meds Home Medications Medication Instructions Recorded Confirmed Type No Known Home Meds 03/18/23 08/24/23 History Allergies Allergies Allergy/AdvReac Type Severity Reaction Status Date / Time No Known Allergies Allergy Verified 08/24/23 16:16 Mental Status Exam Mental Status Exam Patient Appearance: Appropriate Patient Orientation: Person, Place, Time and Situation Level of Consciousness: Awake, Appropriate, Alert and Follows Commands Patient Behavior: Appropriate, Talkative, Cooperative and Good Eye Contact Mood Description: Calm, Appropriate, Constricted and Relaxed Affect Description: Appropriate Patient Cognition Impaired: No Ability to Follow Directions: Good Speech Pattern: Clear, Appropriate, Spontaneous Speech, Coherent and Soft-Spoken Memory Description: Intact Hallucinations: None Delusions: Present (possibly) Thought Process: Intact and Goal Oriented Thought Content: positive for Intact and positive for Goal Oriented Judgement: Fair Assessment & Plan Assessment & Plan (1) Unspecified psychosis: Status: Acute Code(s): F29 - Unspecified psychosis not due to a substance or known physiological condition Assessment and Plan: Belief that neighbors are attempting to harm him with the use of an electromagnetic pulse ray gun. (2) Adjustment reaction to chronic stress: Status: Acute Code(s): F43.89 - Other reactions to severe stress Assessment and Plan: Chronic conflict with neighbors, belief they will harm him. Plan 73 yo male, no psych hx, reports episodes of intense sleep, sedation, awakening after 2.5 hours with severe headache, twitching of fingers, back, with burning sensations and perceived increased body temperature in certain areas, occurring for ~6 weeks. He believes these are being caused by the neighbors using a electromagnetic pulse ray gun. As a result he has placed aluminium sheets under the bed with some sx relief. Believes the neighbors are out to harm him and have hacked his computer. He has made recordings while sleeping and finds this adds validity to his theory. He is disappointed that team has given this a psychiatric spin and as a result has signed a three day notice of intent. I have asked Mr. Garcia to work with the [facility] for this time and in the future, consider psychiatry an option to assist him in management of current issues. He will consider. CAT shows mild microangiopathy which could explain difficulty walking wobbly walk , current psychiatric sx, ?TIA. Pt also may have sx RAEANN. Plan: Pt refuses medication recommendations. Pt refuses neurological evaluation as he reports he does not have insurance that will cover this. Sleep study eval recommended. He will consider after discharge. EEG recommended. Declines due to insurance constraints. Three day notice will 08/29/22. Continue to attempt to assist and form alliance with pt. Observe and provide feedback which may be useful in pt moving forward. Patient educated on: therapeutic strategies and medical condition Informed Consent: understands Reason for continued inpatient stay Substantial Risk for: med/psych decompensation Statement Statement: I have reviewed the history and physical and performed a pertinent examination on my patient. No changes have occurred unless specified. If the History and Physical was not performed prior to admission, the Hospitalist's service will be consulted for completing the admission physical. Time Spent With Patient Time: Total time managing care of this patient today ____ minutes.
[2023-08-27 17:12] VITALS: BP 126/68; PULSE 93; RESP 16; TEMP 36.2; O2SAT 95
[2023-08-28 08:02] VITALS: BP 117/68; PULSE 85; RESP 16; TEMP 36.3; O2SAT 99
[2023-08-28] MEDS: Nicotine Polacrilex 2 MG GUM BUCCAL (10:24)
--- NOTE | 2023-08-28 13:33 | P.DS_ITS ---
DS: Providers Provider Date of Service: 08/28/23 Date of admission: 08/26/23 13:55 Date of discharge: 08/28/23 Primary care physician: Unknown Physician Admitting clinician: Eda Gupta Attending physician on admission: Praful Swartz Attending physician on discharge: Praful Swartz Discharging clinician: Eda Gupta DS: Diagnosis Discharge Diagnosis (1) Unspecified psychosis: Status: Acute (2) Adjustment reaction to chronic stress: Status: Acute DS: Medications Discharge Medications Home Medications: Home Medications Medication Instructions Recorded Confirmed No Known Home Meds 03/18/23 08/24/23 Mental Status Exam Mental Status Exam Patient Appearance: Appropriate Patient Orientation: Person, Place, Time and Situation Level of Consciousness: Awake, Appropriate, Alert and Follows Commands Patient Behavior: Appropriate, Talkative, Cooperative and Good Eye Contact Mood Description: Calm, Appropriate, Constricted and Relaxed Affect Description: Appropriate Patient Cognition Impaired: No Ability to Follow Directions: Good Speech Pattern: Clear, Appropriate, Spontaneous Speech, Coherent and Soft-Spoken Memory Description: Intact Hallucinations: None Delusions: Present (possibly) Thought Process: Intact and Goal Oriented Thought Content: positive for Intact and positive for Goal Oriented Judgement: Fair Data Data Completed and Pending Completed studies during hospitalization [Text1]: 08/24/23 08/24/23 08/25/23 13:10 14:03 12:23 WBC 7.3 RBC 4.76 Hgb 15.1 Hct 45.2 MCV 95.0 MCH 31.7 MCHC 33.4 RDW 13.6 Plt Count 245 MPV 8.6 L Immature Gran % (Auto) 0.4 Neut % (Auto) 58.0 Lymph % (Auto) 28.3 [place] % (Auto) 9.9 Eos % (Auto) 3.0 Baso % (Auto) 0.4 Lymph # (Auto) 2.1 [place] # (Auto) 0.7 Eos # (Auto) 0.2 Baso # (Auto) 0.0 Abs Immat Gran (auto) 0.03 Absolute Neuts (auto) 4.2 Absolute Nucleated RBC 0.000 Nucleated RBC % (auto) 0.0 Sodium 143 Potassium 4.4 Chloride 108 Carbon Dioxide 25 Anion Gap 14 BUN 23 H Creatinine 0.75 Estim Creat Clear Calc 85.6 Estimated GFR > 60 Random Glucose 95 Estimat Average Glucose Hemoglobin A1c % Calcium 8.8 D Magnesium Total Bilirubin 0.2 AST 26 ALT 36 Alkaline Phosphatase 70 Total Protein 6.4 L Albumin 3.8 Triglycerides Cholesterol LDL Cholesterol, Calc HDL Cholesterol Vitamin B12 Folate TSH Free T4 Urine Color Yellow Urine Appearance Clear Urine pH 7.5 Ur Specific [place] 1.020 Urine Protein Negative Urine Glucose (UA) Negative Urine Ketones Negative Urine Blood Negative Urine Nitrite Negative Ur Leukocyte Esterase Negative Salicylates < 5.0 L Urine Opiates Screen Not Detected Urine Fentanyl Screen Not Detected Acetaminophen < 3 Ur Barbiturates Screen Not Detected Ur Phencyclidine Scrn Not Detected Ur Amphetamines Screen Not Detected U Benzodiazepines Scrn Not Detected Urine Cocaine Screen Not Detected U Marijuana (THC) Screen Not Detected Ethyl Alcohol < 10 COVID-19 (OSCAR) Negative COVID-19 Clin Com See Note 08/26/23 08/27/23 07:27 08:08 WBC RBC Hgb Hct MCV MCH MCHC RDW Plt Count MPV Immature Gran % (Auto) Neut % (Auto) Lymph % (Auto) [place] % (Auto) Eos % (Auto) Baso % (Auto) Lymph # (Auto) [place] # (Auto) Eos # (Auto) Baso # (Auto) Abs Immat Gran (auto) Absolute Neuts (auto) Absolute Nucleated RBC Nucleated RBC % (auto) Sodium Potassium Chloride Carbon Dioxide Anion Gap BUN Creatinine Estim Creat Clear Calc Estimated GFR Random Glucose Estimat Average Glucose 114 Hemoglobin A1c % 5.6 Calcium Magnesium 2.0 Total Bilirubin AST ALT Alkaline Phosphatase Total Protein Albumin Triglycerides 94 Cholesterol 187 LDL Cholesterol, Calc 114 H HDL Cholesterol 55 Vitamin B12 476 Folate 11.8 TSH 0.90 0.88 Free T4 1.09 Urine Color Urine Appearance Urine pH Ur Specific [place] Urine Protein Urine Glucose (UA) Urine Ketones Urine Blood Urine Nitrite Ur Leukocyte Esterase Salicylates Urine Opiates Screen Urine Fentanyl Screen Acetaminophen Ur Barbiturates Screen Ur Phencyclidine Scrn Ur Amphetamines Screen U Benzodiazepines Scrn Urine Cocaine Screen U Marijuana (THC) Screen Ethyl Alcohol COVID-19 (OSCAR) COVID-19 Clin Com Imaging Diagnostic Imaging Impressions Head CT 08/25/23 11:19 IMPRESSION: No evidence of acute intracranial hemorrhage or edematous territorial infarction. DS: Summary Hospital Course Hospital Course: 73 yo male, reports no psychiatric history, referred to ER by police as he had called to discuss with them concerns about his neighbors attempting to harm him. Pt reports he is working on a theory of the origin of his experience when at home and believes neighbors are attempting to place focused radiaition on him through his floor (they live below him). He has purchased aluminum sheets and found them helpful in decreasing symptoms which he describes as sudden, extreme grogginess, deep sleep with brain fog, alteration in alertness upon awakening, headache, twitching/tingling in fingers, a sense of mild burning and redness in hands in particular, warmth in various parts of his body, a gait that he describes as wobbly and snoring. He reports recording of episodes to offer validation and reports his computer has been hacked as well. He states he knows his environment well, having lived there for 3.5 years. He signed a three day notice of intent upon admission due to an assumption he believes was made that there was not validity in his concerns and they were categorized as psychiatric sx. He reports was denied the opportunity to explore ideas of what was causing these sx in the community prior to making a decision regarding treatment. He reports the absence of reported symptoms since admission. Pt, on admission, declined medication trials, EEG, neurology consult. He reported concern with inadequate insurance coverage and resulting financial obligation. A sleep study was suggested and he will consider this as an outpatient. CAT Scan results were reviewed with pt showing a mild microangiopathy which may explain some symptoms and is the reason for neurological consultation recommendation. Pt was invited to explore the milieu, the support offered and to consider this option in the future should he find we could be of assistance. He left on a three day notice of intent, declining all services at this time. Status at Discharge Functional status at discharge: independent ambulation Overall status at discharge: patient is back to baseline Time Spent with Patient Time attestation: Total time managing care of this patient today ____ minutes. Time spent: Greater than 30 minutes Discharge Plan Discharge Anticipated Discharge Date/Time: 08/28/23 12:00 Patient Disposition: Home, Self-Care Discharge Diagnosis: Adjustment reaction to environmental stressor with delusional thought process Referrals: ED Physician,Generic [Physician] - 2 days Physician,Unknown J [Primary Care Provider] - 1 Week Discharge Medications: No Action No Known Home Meds Discharge Orders: Discharge Order (Routine); Ordered 08/28/23 Ordered By: Eda Gupta Diet: Advance to usual diet Activity on Discharge: As tolerated Stand Alone Forms: Patient Portal Discharge page, Community Support Care Plan Goals: Symptom management Health Concerns: Suggest follow up neuro eval and sleep eval Plan of Treatment: Call and or return as needed Discharges on a three day notice of intent. Assessment: Pt interviewed prior to discharge and found to be fully oriented and without SI/HI. Pt has insight and demonstrates good judgment in terms of wanting to explore his ideas of what was causing sx prior to admission. He declines treatment at this time. Pt is not in imminent risk of harm to self or others and has a plan that includes returning for treatment if he feels he needs to. He is aware he can present to the ER or call 911. Pt has been observed closely by nursing and unit staff throughout admission. Pt has not engaged in any behaviors that suggest dangerousness to self or other and has demonstrated appropriate behaviors and impulse control. Patient Instructions: Acute Headache (ED) Discharge Date/Time: 08/28/23 13:10
== END 2023-08-28 13:10 | disposition home or self-care (01) | DRG 882 ==
LOC: HO.ED 08-26 12:39 → HO.PM5 08-26 13:58
PROVIDERS: Emergency Medicine; Physician Assistant; Admitting Provider Clinical Nurse Specialist Psychiatric/Mental Health, Adult; Emergency Provider Emergency Medicine; Visit Provider Clinical Nurse Specialist Psychiatric/Mental Health, Adult
DX: F43.20 Adjustment disorder, unspecified (principal); F17.210 Nicotine dependence, cigarettes, uncomplicated; Z71.6 Tobacco abuse counseling; F22 Delusional disorders; Z20.822 Contact with and (suspected) exposure to COVID-19
CPT/HCPCS: 36415; 70450; 80053; 80061; 80143; 80179; 80307; 81003; 82607; 82746; 83036; 83735; 84439; 84443; 85025; 87635; 93005; 99285; S9485

== ENCOUNTER → 2023-08-25 19:18 | Outpatient (BNV) | payer MEDICARE, SELFPAY | PROVIDERS: Emergency Provider Emergency Medicine; Visit Provider Internal Medicine Cardiovascular Disease | DX: Z01.818 Encounter for other preprocedural examination (principal) | CPT/HCPCS: 93010 ==

== ENCOUNTER → 2023-08-26 13:55 | Outpatient (BNV) | payer MEDICARE, SELFPAY | PROVIDERS: Admitting Provider Clinical Nurse Specialist Psychiatric/Mental Health, Adult; Emergency Provider Emergency Medicine; Visit Provider Clinical Nurse Specialist Psychiatric/Mental Health, Adult | DX: F29 Unspecified psychosis not due to a substance or known physiological condition (principal); F43.89 Other reactions to severe stress | CPT/HCPCS: 90792; 99239 ==

== ENCOUNTER 2023-10-02 15:50 | Outpatient (AMB) | payer MEDICARE, SELFPAY ==
--- NOTE | 2023-10-02 15:53 | A.OFFPC_ITS ---
Vital Signs 10/02/23 15:54 Height 5 ft 9 in Weight 162 lb 6 oz BMI 24.0 BP 132/74 Blood Pressure Location Lt brachial Position Sitting Pulse 103 H Pulse Source Pulse Oximeter Pulse Oximetry (%) 98 Oxygen Delivery Method Room Air Intake Visit Reasons: Both feet discoloration Intake Note: Patient is here today for discoloration of both feet Community Relations Director Required: No Frame Aligner: Not Required per policy Accompanied by: Self / Same As Patient Allergies No Known Allergies Allergy (Verified 10/04/23 07:33) Medication List - Last Reconciled 10/04/23 by Joe Reyna MD No Known Home Meds Tobacco use date assessed: 10/02/23 Fall risk assessment: No Falls in past year Last assessed Fall Risk: 10/02/23 Dental Screening Dental Screen Date: 10/02/23 Did you have a dental visit in the last 12 months?: Yes Did you have a dental problem in the last 6 months where you did not have access to dental care?: No Was dental information given to patient?: Patient has dentist HPI Both feet discoloration HPI Details 73-year-old male presents to the office to discuss his medical condition. Since last office visit, patient was taken by the police to the emergency room after he was found to be complaining about his neighbors. Patient was found to have paranoid delusions. However he left the emergency room and has declined all treatments. Patient firmly believes that he has no mental illness. He is complaining of discoloration of his toenails. He has had this problem for quite some time. Also reporting skin changes on his right and left foot. [facility] Medical History (Updated 09/05/23 @ 00:03 by Tyrone Malave) Adjustment reaction to chronic stress Unspecified psychosis Paranoid Hx of cataract Smoker Left inguinal hernia Surgical History History of hernia repair Social History Household Members: None Housing: Apartment Do you presently have visiting nurse or other home services: No Alcohol intake: current Alcohol intake frequency: does not drink Patient Tobacco Use Status: Current everyday Tobacco user Tobacco use type: Cigarette Cigarette Packs Per Day: 0.5 Cigarettes Per Day: 10 Years Smoked: 54 e-Cigarette/Vaping Use: Currently Using Second Hand Smoke Exposure: No service: No Current occupational status: retired Current occupational exposures/hazards: No Sexual orientation: Decline to Answer Cognitive needs: No Hearing needs: No Vision needs: Yes Questionnaire Thrive Questionnaire Date Thrive assessed: 08/28/23 LYNDSEY-7 AMB Questionnaire LYNDSEY-7 Date LYNDSEY - 7 assessed: 08/06/23 Source: Developed by Drs. Kem Bass, Karina Lucas, Chavo Orozco and colleagues, with an educational sofia from [employer]. Physical exam (Primary Care) Vital Signs: Last Vital Signs Pulse 103 H 10/02/23 15:54 BP 132/74 10/02/23 15:54 Pulse Ox 98 10/02/23 15:54 Oxygen Delivery Method Room Air 10/02/23 15:54 BMI result Body Mass Index 24.0 Tobacco/Smoking Status: Tobacco use Status Tobacco use date assessed 10/02/23 10/02/23 16:00 Patient Tobacco Use Status Current everyday Tobacco 10/02/23 16:00 Tobacco use type Cigarette 10/02/23 16:00 e-Cigarette/Vaping Use Currently Using 10/02/23 16:00 Thrive Assessment: Date of Thrive Assessment Date Thrive assessed 08/28/23 10/02/23 16:00 Const Other: Patient very guarded while speaking. He does not want to talk about the events that led to his hospital admission. His feet are extremely foul-smelling. Skin Other: Right and left foot: Dystrophic nails. Erythema over the dorsum of the foot. Assessment and Plan Assessment & Plan (1) Adjustment reaction to chronic stress: Code(s): F43.89 - Other reactions to severe stress Plan: Sadly, patient is not willing to accept his mental health condition. Patient was encouraged to return if he had any further symptoms. (2) Dystrophic nail: Code(s): L60.3 - Nail dystrophy Plan: A podiatry consult has been requested. Coding Level of Care Code Est Pt Level 3 (76540) Diagnoses Adjustment reaction to chronic stress F43.89 Dystrophic nail L60.3
[2023-10-02 15:54] VITALS: BP 132/74; PULSE 103; O2SAT 98; BMI 24.0
== END 2023-10-02 16:38 | disposition home or self-care (01) ==
PROVIDERS: Visit Provider Internal Medicine
DX: F43.89 Other reactions to severe stress (principal); L60.3 Nail dystrophy
CPT/HCPCS: 99213

== ENCOUNTER 2023-12-18 14:42 | Inpatient (IN) | payer MEDICARE, SELFPAY ==
--- NOTE | ~2023-12-18 | MR_ITS ---
MRI OF THE BRAIN WITHOUT IV CONTRAST INDICATION: Late life psychosis. COMPARISON: None available. TECHNIQUE: Multiplanar multisequence MR imaging of the brain was obtained without IV contrast. Additional high-resolution anatomic imaging was performed through the brain and images were submitted for post processing including auto-segmentation and volumetric analysis. FINDINGS: There is no hydrocephalus, extra-axial surface collection, or herniation. There is global cerebral volume loss without mesial temporal lobe predominance and there is mild chronic microangiopathy. The major flow voids at the skull base are preserved. There is no acute infarct on diffusion-weighted imaging. There is no intracranial hemorrhage on the gradient recalled echo acquisition. The midline structures are normal. The cerebellar tonsils are normally positioned. The cerebellum and brainstem are normal. The craniocervical junction is normal. Osseous marrow signal intensity is homogenous. The visualized soft tissues are unremarkable. MR/MR brain wo con w neuroquant IMPRESSION: No acute intracranial findings. There is global cerebral volume loss without mesial temporal lobe predominance and there is mild chronic microangiopathy. Once the neuro quantitative data is postprocessed, an addendum will be made.
[2023-12-18 14:51] VITALS: BP 172/88; PULSE 118; O2SAT 98
[2023-12-18 14:52] VITALS: BP 138/88; PULSE 105; RESP 18; TEMP 36.7; O2SAT 97; BMI 22.1
--- NOTE | 2023-12-18 15:06 | ED.GENADULT ---
HPI - General Adult General Chief complaint: Psychiatric Symptoms Stated complaint: Schizophrenia and having delusions, per ems Time Seen by Provider: 12/18/23 15:05 Source: patient, EMS and police Mode of arrival: EMS Limitations: no limitations History of Present Illness ED Provider: Nuha Park PA-C HPI narrative: Patient is a 73 year old assigned male at with no reported medical history presenting to the emergency department today on a section 12 for physical aggression towards police and hallucinations. Patient states that he has been continually harassed by his neighbors, police, and his landlord. Patient states that he overheard his neighbors plotting to kill him after he reported they may be dealing drugs. Patient states that he can hear them whispering and making duct tape type sounds at night. Patient states that he knows they are using a microwave gun to make his toes tingle. Patient states that he has been able to start blocking these waves by covering his floor with aluminum and spending time in full bath tubs of water. Patient states that he is getting concerned that they won't stop and he may have to do something about it before they do something to him. Patient denies any dizziness, lightheadedness, abdominal pain, nausea, vomiting, fever, chills, blurry vision, double vision, loss of vision, chest pain, difficulty breathing, shortness of breath, back pain, night sweats, pain with urination, increased urinary frequency, increased urinary urgency, blood in his urine or stool, syncope or a near syncopal episode, recent trauma or falls, bowel incontinence, bladder incontinence, bowel retention, bladder retention, or any other complaints at this time. Relieving factors: none Exacerbating factors: none Associated symptoms: denies other symptoms Treatments prior to arrival: none Related Data Home Medications ?Medication ?Instructions ?Recorded ?Confirmed No Known Home Meds 03/18/23 12/18/23 Allergies Allergy/AdvReac Type Severity Reaction Status Date / Time No Known Allergies Allergy Verified 12/18/23 15:02 Review of Systems Constitutional: Constitutional: Reports no additional constitutional complaints, Denies chills, Denies fever(s) and Denies night sweats Eyes: Eyes: Reports no additional eye complaints, Denies blurry vision, Denies change in vision, Denies diplopia, Denies eye discharge, Denies loss of vision and Denies eye pain ENT: Denies dizziness Cardiovascular: Cardiovascular: Reports no additional cardiovascular complaints, Denies chest pain, Denies lightheadedness, Denies Loss of Consciousness and Denies dyspnea Respiratory: Respiratory: Reports no additional respiratory complaints and Denies dyspnea Gastrointestinal: Gastrointestinal: Reports no additional gastrointestinal complaints, Denies abdominal pain, Denies melena, Denies hematochezia, Denies change in bowel habits and Denies change in stool character Genitourinary: Genitourinary: Reports no additional male genitourinary complaints, Denies hematuria, Denies oliguria, Denies difficulty urinating, Denies dysuria, Denies urinary frequency, Denies urinary hesitancy, Denies urinary incontinence and Denies urinary urgency Musculoskeletal: Musculoskeletal: Reports no additional musculoskeletal complaints, Denies numbness and Denies tingling Neurologic: Denies dizziness, Denies loss of vision, Denies numbness and Denies tingling Psychiatric: Psychiatric: Reports auditory hallucinations and Reports tactile hallucinations Endocrine: Endocrine: Reports no additional endocrine complaints Hematologic/Lymphatic: Hematologic/Lymphatic: Reports no additional hematologic/lymphatic complaints Allergic/Immunologic: Allergic/Immunologic: Reports no additional allergic/immunologic complaints [facility] Past Medical History Attestation statement: The following information was validated with the patient. Source: old records reviewed and nursing notes reviewed Medical History Adjustment reaction to chronic stress Unspecified psychosis Paranoid Hx of cataract Smoker Left inguinal hernia Surgical History History of hernia repair Social History Social History Household Members: None Housing: Apartment Do you presently have visiting nurse or other home services: No Alcohol intake: current Alcohol intake frequency: does not drink Patient Tobacco Use Status: Current everyday Tobacco user Tobacco use type: Cigarette Cigarette Packs Per Day: 0.5 Cigarettes Per Day: 10 Years Smoked: 54 Smoked in Last 30 Days: Yes e-Cigarette/Vaping Use: Currently Using Second Hand Smoke Exposure: No Use of substances other than those prescribed or required for medical reasons: No Advance Directives: No Advance Directives Information Provided: No Do you have a plan to hurt others: No Plan service: No Current occupational status: retired Current occupational exposures/hazards: No Sexual orientation: Decline to Answer Cognitive needs: No Hearing needs: No Vision needs: Yes Physical Exam ED Vital Signs: Vital Signs - 24 hr 12/18/23 14:52 12/18/23 16:09 12/19/23 02:34 Temperature 98.1 F 98.1 F 97.9 F Pulse Rate 105 H 105 H 77 Respiratory Rate 18 18 16 Blood Pressure 138/88 138/88 123/68 Pulse Oximetry 97 97 98 Oxygen Delivery Method Room Air Room Air Room Air BMI result Body Mass Index 22.1 Const General: cooperative, no acute distress, alert and awake Nutritional Appearance: well nourished Orientation/consciousness: patient oriented x3 Limitations: no limitations HENMT Head: Yes normal to inspection and Yes atraumatic Ears: hearing grossly normal bilaterally and external ears normal General nose exam: Normal external nose present, no nasal discharge noted and no epistaxis Face and sinus: Yes normal facial exam, No abrasion and No laceration Mouth: Normal oral and palatal mucosa present, no drooling and no muffled voice Eyes General: appearance normal, both eyes and all related structures Periorbital: periorbital findings normal Eyelids: Yes eyelids normal Conjunctivae: conjunctivae normal Pupils: Equal, round and reactive pupils present EOM: EOMs intact bilaterally Neck Neck: Yes normal visual inspection, Yes full ROM and Yes no lymphadenopathy Chest Chest palpation & inspection: normal inspection of the chest Resp Effort & Inspection: normal respiratory effort and able to speak in complete sentences GI Inspection: Yes normal to inspection Neuro General: patient oriented x3 and moves all extremities Cranial nerves: Yes Equal, round and reactive pupils present Cognition (Neuro): normal cognition Motor exam (neuro): 5/5 motor strength present throughout Sensory Exam: Normal double simultaneous stimulation for sensation Coordination: [id number] test normal Extrem General: Yes normal to inspection, Yes full ROM and Yes capillary refill normal Psych Appearance: grossly normal Mental Status: mental status grossly normal Speech and movement: Normal speech and movement present Affect: normal affect Attitude: cooperative Thought process: Illogical thought process present Thought content: Paranoid delusions present and delusions Course Course Course Narrative: Physician observation continued. VS stable, no acute events overnight, S12 inpatient bed search. Medications Administered Generic Name Dose Route Start Last Admin Trade Name Freq PRN Reason Stop Dose Admin Nicotine Polacrilex 2 mg 12/18/23 17:05 12/18/23 22:43 Nicotine Polacrilex 2 Mg Gum BUCCAL 2 mg Q2H PRN Administration Nicotine Cravings Medical Decision Making Medical Decision Making [facility] Narrative: Patient is a 73 year old assigned male at with no reported medical history presenting to the emergency department today with aggression and delusions. Patient's physical exam showed an individual with paranoid delusions of great severity. Patient's blood work was unremarkable. Patient's urine showed no acute process. I explained my physical exam findings as well as all test results to the patient. I answered all questions asked by the patient. Patient's disposition will be determined after CARE team evaluation. Physician observation started at 1840. Differential Diagnosis Differential Diagnoses: The differential diagnosis associated with the presentation includes Schizophrenia Paranoid delusions Delusional Admission/Observation Consideration of admission/observation: Escalation of care including admission/observation considered Patient's disposition will be determined after CARE team evaluation. Lab Data [facility] Lab Attestation statement: I reviewed the patient's lab results. My interpretation of these results are in the [facility] Rationale portion of this note. 12/18/23 15:27 12/18/23 15:27 Labs: Lab Results 12/18/23 12/18/23 Range/Units 15:07 15:27 WBC 7.2 (4.8-10.8) X10*3/uL RBC 5.02 (4.60-5.80) X10*6/uL Hgb 16.2 (14.0-18.0) g/dl Hct 47.5 (42.0-52.0) % MCV 94.6 (80.0-98.0) fL MCH 32.3 (27.0-33.0) pg MCHC 34.1 (31.0-36.0) g/dl RDW 13.7 (11.0-16.0) % Plt Count 225 (160-400) X10*3/uL MPV 8.8 L (9.4-12.4) fL Immature Gran % (Auto) 0.1 (0.0-0.4) % Neut % (Auto) 63.8 (45-73) % Lymph % (Auto) 26.0 (20-40) % White % (Auto) 8.2 (2-11) % Eos % (Auto) 1.5 (0-4) % Baso % (Auto) 0.4 (0-2) % Lymph # (Auto) 1.9 (1.2-4.9) X10*3/uL White # (Auto) 0.6 (0.1-1.2) X10*3/uL Eos # (Auto) 0.1 (0.0-0.4) X10*3/uL Baso # (Auto) 0.0 (0.0-0.2) X10*3/uL Abs Immat Gran (auto) 0.01 (0.00-0.03) X10*3/uL Absolute Neuts (auto) 4.6 (2.0-8.3) x10*3/uL Absolute Nucleated RBC 0.000 (0.0-0.012) X10*3/uL Nucleated RBC % (auto) 0.0 (0.0-0.2) /100WBC Sodium 140 (135-145) mmol/L Potassium 4.2 (3.3-5.1) mmol/L Chloride 105 (96-108) mmol/L Carbon Dioxide 25 (22-29) mmol/L Anion Gap 14 (12-20) BUN 19 H (9-16) mg/dL Creatinine 0.85 (0.5-1.4) mg/dL Estim Creat Clear Calc 75.5 Estimated GFR > 60 Random Glucose 142 H (60-115) mg/dL Calcium 9.5 D (8.4-10.2) mg/dL Total Bilirubin 0.7 (0.0-1.0) mg/dL AST 23 (5-37) U/L ALT 24 (0-40) U/L Alkaline Phosphatase 76 (39-117) U/L Total Protein 6.7 (6.5-8.0) g/dL Albumin 4.2 (3.5-5.0) g/dL Urine Color Dark Yellow Urine Appearance Clear Urine pH 6.0 (5.0-9.0) Ur Specific [place] 1.025 (1.005-1.025) Urine Protein Trace (Neg-Trace) mg/dL Urine Glucose (UA) Negative (Negative) mg/dL Urine Ketones 15 (Negative) mg/dL Urine Blood Negative (Negative) Urine Nitrite Negative (Negative) Ur Leukocyte Esterase Negative (Negative) Urine Opiates Screen Not Detected (Not Detect) Ur Buprenorphine Scrn Not Detected (Not Detect) ng/mL Ur Oxycodone Screen Not Detected (Not Detect) ng/mL Urine Methadone Screen Not Detected (Not Detect) ng/mL Urine Fentanyl Screen Not Detected (Not Detect) Ur Barbiturates Screen Not Detected (Not Detect) Ur Phencyclidine Scrn Not Detected (Not Detect) Ur Amphetamines Screen Not Detected (Not Detect) U Benzodiazepines Scrn Not Detected (Not Detect) Urine Cocaine Screen Not Detected (Not Detect) U Marijuana (THC) Screen Not Detected (Not Detect) Ethyl Alcohol < 10 mg/dL Independent Historian Clinical information obtained from an independent historian. History obtained from or confirmed by: EMS (EMS provided additional history and confirmed the history provided by the patient.) Critical Care Time Critical Care Time Critical Care Time: Yes Total Critical Care Time: 35 Attestation: I spent 35 minutes of Critical Care Time with this patient. This does not include time spent on separately reported billable procedures. Discharge Plan Discharge Clinical Impression: Paranoid delusion Patient Disposition: Still a Patient Prescriptions: No Action No Known Home Meds Interventions: [place]-Suicide Risk Severity Scale Last Done: 12/18/23 16:10 Print Language: Citizen Of [place]
[2023-12-18 15:13] LABS: Appearance Urine Clear; Color Urine Dark Yellow; Glucose Urine UA Negative (Negative); Leukocyte Esterase Urine Negative (Negative); Nitrite Urine Negative (Negative); Specific Gravity - Urine 1.025 (1.005-1.025); Urine Blood Negative (Negative); Urine Ketones 15 mg/dL (Negative); Urine Protein Trace mg/dL (Neg-Trace)
[2023-12-18 15:26] LABS: Amphetamine Screen Urine Not Detected (Not Detect); Barbiturates, Urine Not Detected (Not Detect); Benzodiazepines Screen Urine Not Detected (Not Detect); Buprenorphine Scr Not Detected (Not Detect); Cannabinoid Screen Urine Not Detected (Not Detect); Cocaine Screen Urine Not Detected (Not Detect); Fentanyl, urine Not Detected (Not Detect); Methadone Screen, Urine Not Detected (Not Detect); Opiate Screen Urine Not Detected (Not Detect); Oxycodone Screen Urine Not Detected (Not Detect); Phencyclidine Screen Urine Not Detected (Not Detect)
--- NOTE | 2023-12-18 15:44 | MHC.CARE ---
[facility] calls and advises CARE Team that the housing complex will be moving forward with an eviction based on pt's current demonstration of aggression, and making inappropriate comments to other residents.
[2023-12-18 16:09] VITALS: BP 138/88; PULSE 105; RESP 18; TEMP 36.7; O2SAT 97
[2023-12-18 16:49] LABS: Hematocrit 47.5 % (42.0-52.0); Hemoglobin 16.2 g/dl (14.0-18.0); Imm Gran Pct Auto 0.1 % (0.0-0.4); Mean Corpuscular HGB Conc 34.1 g/dl (31.0-36.0); Mean Corpuscular Hemoglobin 32.3 pg (27.0-33.0); Mean Corpuscular Volume 94.6 fL (80.0-98.0); Mean Platelet Volume 8.8 fL (9.4-12.4); Neutrophils Percent Auto 63.8 % (45-73); Platelet Count 225 X10*3/uL (160-400); Red Blood Count 5.02 X10*6/uL (4.60-5.80); Red Cell Distribution Width 13.7 % (11.0-16.0); White Blood Count 7.2 X10*3/uL (4.8-10.8)
[2023-12-18 16:50] LABS: Basophils Percent Auto 0.4 % (0-2); Eosinophils Absolute Auto 0.1 X10*3/uL (0.0-0.4); Eosinophils Percent Auto 1.5 % (0-4); Imm Gran Abs Auto 0.01 X10*3/uL (0.00-0.03); Lymphocytes Absolute Auto 1.9 X10*3/uL (1.2-4.9); MANUAL DIFF FLAG NO; Monocytes Absolute Auto 0.6 X10*3/uL (0.1-1.2); Monocytes Percent Auto 8.2 % (2-11); Neutrophils Absolute Auto 4.6 x10*3/uL (2.0-8.3)
[2023-12-18] MEDS: Nicotine Polacrilex 2 MG GUM BUCCAL ×3 (17:12→22:43)
[2023-12-18 17:48] LABS: Alanine Aminotransferase 24 U/L (0-40); Albumin Level 4.2 g/dL (3.5-5.0); Alkaline Phosphatase 76 U/L (39-117); Anion Gap 14 (12-20); Aspartate Amino Transferase 23 U/L (5-37); Bilirubin Total 0.7 mg/dL (0.0-1.0); Blood Urea Nitrogen 19 mg/dL (9-16); Calcium 9.5 mg/dL (8.4-10.2); Carbon Dioxide 25 mmol/L (22-29); Chloride 105 mmol/L (96-108); Creatinine Clr Calc Pharmacy 75.5; Estimated Glomerular Filt Rate > 60; Ethanol < 10 mg/dL; Glucose Random 142 mg/dL (60-115); Potassium 4.2 mmol/L (3.3-5.1); Sodium 140 mmol/L (135-145); Total Protein 6.7 g/dL (6.5-8.0)
--- NOTE | 2023-12-19 | ECG_ITS ---
Test Reason : qt interval Blood Pressure : / mmHG Vent. Rate : 086 BPM Atrial Rate : 086 BPM P-R Int : 140 ms QRS Dur : 088 ms QT Int : 362 ms P-R-T Axes : 053 -09 039 degrees QTc Int : 433 ms Normal sinus rhythm Normal ECG When compared with ECG of 25-AUG-2023 19:18, No significant change was found Referred By: Eusebia Bowen Electronically Signed By:MARQUITA PENA MD
[2023-12-19 02:34] VITALS: BP 123/68; PULSE 77; RESP 16; TEMP 36.6; O2SAT 98
--- NOTE | 2023-12-19 06:38 | PC.NURSE ---
Patient slept through the night, no distress observed/reported, denied SI/HI/AVH, disposition per [facility] is section-12 inpatient bed search, VSS, med rec completed/currently not on any medication, will continue to monitor
[2023-12-19] MEDS: Nicotine Polacrilex 2 MG GUM BUCCAL ×2 (08:05→10:22)
--- NOTE | 2023-12-19 09:19 | PC.NURSE ---
assumed care of patient at 0645, patient appears to be in no apparent distress this am. Ambulating with steady gait around BH pod, conversing with other patients. Patient verbalizes mild frustrations about being brought here but states that he is willing to participate in the care being provided. patient aware of plan of care and is familiar with the process here. Continue plan of care for inpatient bedsearch
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
[2023-12-19 16:35] VITALS: BMI 22.6
[2023-12-19] MEDS: Nicotine Polacrilex 2 MG GUM 4 MG BUCCAL ×2 (17:15→21:08)
[2023-12-19 19:43] VITALS: BP 124/67; PULSE 87; RESP 18; TEMP 36.9; O2SAT 96
--- NOTE | 2023-12-19 22:26 | PC.NURSE ---
Pt requested a printout of the monograph for zyprexa. Pt then refused hs med zyprexa. Pt stated, I would like to go home and not have to take any additional medication .
[2023-12-20] MEDS: Nicotine Polacrilex 2 MG GUM 4 MG BUCCAL ×2 (06:38→08:25)
[2023-12-20 07:53] VITALS: BP 135/74; PULSE 79; RESP 14; TEMP 36.3; O2SAT 97
[2023-12-20 09:19] LABS: Cholesterol 159 mg/dL (<200); HDL Cholesterol 55 mg/dL (>40); LDL Cholesterol Calculated 85 mg/dL (<100); Triglycerides 95 mg/dL (<150)
[2023-12-20 09:25] LABS: Estimated Average Glucose 126 mg/dL
[2023-12-20 09:35] LABS: Free T4 (Free Thyroxine) 1.13 ng/dL (0.71-1.85); Thyroid Stimulating Hormone 0.71 uIU/mL (0.32-4.0)
[2023-12-20 11:11] LABS: Folate 9.5 ng/mL (> or = 4.0); Vitamin B12 528 pg/mL (200-900)
[2023-12-20] MEDS: Nicotine Polacrilex 2 MG GUM BUCCAL ×4 (12:31→22:47)
--- NOTE | 2023-12-20 13:27 | HO.PSYCHPN ---
Subjective Subjective Date of Service: 12/20/23 Reason For Visit: psychosis Subjective Notes: Kwon Warning Interim History: calm, cooperative. review paranoid delusions in great detail. states he had been noting activity of drug traffickers at his former apartment. when he moved to new apartment he say someone from his former apartment there who said to him, you thought you were getting away. he believes his present landlord collaborated with the police and his current landlord to move the same people who lived below him in the previous apartment into the same space under him in the present apartment. he reports he can hear their voices very clear, as he has been for a long time. discuss his belief that someone is using directed energy weapons against him, specifically targeting his toes. he believes water in general protects him from the microwaves from the weapons, and he has been using wet socks and long periods in the bath to prevent harm to himself. discuss legal circumstance in great detail, kwon warning given. Mental Status Exam Mental Status Exam Narrative: adequately dressed and groomed. cooperative, pleasant, polite. no PMA/PMR. speech incr rate and amount, nml loudness, decr latency, nml prosody. thoughts linear and illogical. affect full range, flexible, normo-intense, non-labile. mood not assessed. no SI/SIBI/HI/VH expressed. endorses likely AH. Diagnostics Vital Signs (24Hr): Vital Signs - 24 hr 12/19/23 19:43 12/20/23 07:53 Temperature 98.4 F 97.4 F Pulse Rate 87 79 Respiratory Rate 18 14 Blood Pressure 124/67 135/74 Pulse Oximetry 96 97 Oxygen Delivery Method Room Air Room Air BMI result Body Mass Index 22.6 Labs 12/18/23 15:27 12/18/23 15:27 Labs: Laboratory Results - last 48 hr 12/18/23 12/18/23 12/20/23 15:07 15:27 08:26 WBC 7.2 RBC 5.02 Hgb 16.2 Hct 47.5 MCV 94.6 MCH 32.3 MCHC 34.1 RDW 13.7 Plt Count 225 MPV 8.8 L Immature Gran % (Auto) 0.1 Neut % (Auto) 63.8 Lymph % (Auto) 26.0 [place] % (Auto) 8.2 Eos % (Auto) 1.5 Baso % (Auto) 0.4 Lymph # (Auto) 1.9 [place] # (Auto) 0.6 Eos # (Auto) 0.1 Baso # (Auto) 0.0 Abs Immat Gran (auto) 0.01 Absolute Neuts (auto) 4.6 Absolute Nucleated RBC 0.000 Nucleated RBC % (auto) 0.0 Sodium 140 Potassium 4.2 Chloride 105 Carbon Dioxide 25 Anion Gap 14 BUN 19 H Creatinine 0.85 Estim Creat Clear Calc 75.5 Estimated GFR > 60 Random Glucose 142 H Estimat Average Glucose 126 Hemoglobin A1c % 6.0 Calcium 9.5 D Total Bilirubin 0.7 AST 23 ALT 24 Alkaline Phosphatase 76 Total Protein 6.7 Albumin 4.2 Triglycerides 95 Cholesterol 159 LDL Cholesterol, Calc 85 HDL Cholesterol 55 Vitamin B12 528 Folate 9.5 TSH 0.71 Free T4 1.13 Urine Color Dark Yellow Urine Appearance Clear Urine pH 6.0 Ur Specific [place] 1.025 Urine Protein Trace Urine Glucose (UA) Negative Urine Ketones 15 Urine Blood Negative Urine Nitrite Negative Ur Leukocyte Esterase Negative Urine Opiates Screen Not Detected Ur Buprenorphine Scrn Not Detected Ur Oxycodone Screen Not Detected Urine Methadone Screen Not Detected Urine Fentanyl Screen Not Detected Ur Barbiturates Screen Not Detected Ur Phencyclidine Scrn Not Detected Ur Amphetamines Screen Not Detected U Benzodiazepines Scrn Not Detected Urine Cocaine Screen Not Detected U Marijuana (THC) Screen Not Detected Ethyl Alcohol < 10 Medications Medications Current Medications Acetaminophen (Acetaminophen 325 Mg Tablet) 650 mg PO Q6H PRN PRN Reason: Headache/Pain Mild Scale (1-3) Al Hydroxide/Mg Hydroxide (Magnesium Hydrox/Alum Hydrox 30 Ml Oral.Susp) 30 ml PO Q6H PRN PRN Reason: Heartburn/Nausea Hydroxyzine HCl (Hydroxyzine Hcl 25 Mg Tablet) 25 mg PO Q6H PRN PRN Reason: Anxiety Magnesium Hydroxide (Milk Of Magnesia 30 Ml Oral.Susp) 30 ml PO DAILY PRN PRN Reason: Constipation Nicotine Polacrilex (Nicotine Polacrilex 2 Mg Gum) 2 mg BUCCAL Q1H PRN PRN Reason: Nicotine Cravings Last Admin: 12/20/23 12:31 Dose: 2 mg Olanzapine (Olanzapine 5 Mg Tablet) 5 mg PO BEDTIME LARRY Last Admin: 12/19/23 22:25 Dose: Not Given Trazodone HCl (Trazodone Hcl 50 Mg Tablet) 50 mg PO BEDTIME MRX1 PRN PRN Reason: Insomnia Allergies Allergies Allergy/AdvReac Type Severity Reaction Status Date / Time No Known Allergies Allergy Verified 12/18/23 15:02 Assessment & Plan Assessment & Plan (1) Paranoid delusion: Status: Acute Code(s): 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 collect collateral. w/u medical etiologies for late change in mental status on , up next . will likely file due to recent h/o physical aggression and threatening behavior. 12/19: encouraged again to take medication. delusions explored in more detail, making statement suggestive of AH, which would remove delusional disorder from the differential and leave a psychotic disorder as diagnosis. legal circumstance reviewd, kwon warning given. continue current mgmt. Reason for continued inpatient stay Substantial Risk for: harm to others and inability to function Time Spent With Patient Time: Total time managing care of this patient today __45__ minutes.
[2023-12-20 19:53] VITALS: BP 128/67; PULSE 101; RESP 18; TEMP 36.9; O2SAT 93
[2023-12-21] MEDS: Nicotine Polacrilex 2 MG GUM BUCCAL ×5 (07:02→21:59)
[2023-12-21 07:42] VITALS: BP 112/67; PULSE 80; RESP 16; TEMP 36.6; O2SAT 96
--- NOTE | 2023-12-21 08:51 | HO.PSYCHPN ---
Subjective Subjective Date of Service: 12/21/23 Reason For Visit: psychosis Interim History: Patient remains calm and cooperative on the unit although refusing any psychotropic medications. He remains focused on the crisis team, his landlord and police conspiracy. He says the claims made in the crisis report are all falsified and made up. Delusions continue. Denies SI. He is visible on the unit. Interacting with others and attends groups. Review of Systems Constitutional: Reports no additional constitutional complaints, Denies chills, Denies fever(s) and Denies night sweats Eyes: Reports no additional eye complaints, Denies blurry vision, Denies change in vision, Denies diplopia, Denies eye discharge, Denies loss of vision and Denies eye pain Denies dizziness Cardiovascular: Reports no additional cardiovascular complaints, Denies chest pain, Denies lightheadedness, Denies Loss of Consciousness and Denies dyspnea Respiratory: Reports no additional respiratory complaints and Denies dyspnea Gastrointestinal: Reports no additional gastrointestinal complaints, Denies abdominal pain, Denies melena, Denies hematochezia, Denies change in bowel habits and Denies change in stool character Genitourinary: Reports no additional male genitourinary complaints, Denies hematuria, Denies oliguria, Denies difficulty urinating, Denies dysuria, Denies urinary frequency, Denies urinary hesitancy, Denies urinary incontinence and Denies urinary urgency Musculoskeletal: Reports no additional musculoskeletal complaints, Denies numbness and Denies tingling Denies dizziness, Denies loss of vision, Denies numbness and Denies tingling Psychiatric: Reports auditory hallucinations and Reports tactile hallucinations Endocrine: Reports no additional endocrine complaints Hematologic/Lymphatic: Reports no additional hematologic/lymphatic complaints Allergic/Immunologic: Reports no additional allergic/immunologic complaints Mental Status Exam Mental Status Exam Narrative: adequately dressed and groomed. cooperative, pleasant, polite. no PMA/PMR. speech incr rate and amount, nml loudness, decr latency, nml prosody. thoughts linear and illogical. affect full range, flexible, normo-intense, non-labile. mood not assessed. no SI/SIBI/HI/VH expressed. Paranoid delusions. endorses likely AH. Diagnostics Vital Signs (24Hr): Vital Signs - 24 hr 12/20/23 19:53 12/21/23 07:42 Temperature 98.5 F 97.9 F Pulse Rate 101 H 80 Respiratory Rate 18 16 Blood Pressure 128/67 112/67 Pulse Oximetry 93 96 Oxygen Delivery Method Room Air Room Air BMI result Body Mass Index 22.6 Labs 12/18/23 15:27 12/18/23 15:27 Labs: Laboratory Results - last 48 hr 12/20/23 08:26 Estimat Average Glucose 126 Hemoglobin A1c % 6.0 Triglycerides 95 Cholesterol 159 LDL Cholesterol, Calc 85 HDL Cholesterol 55 Vitamin B12 528 Folate 9.5 TSH 0.71 Free T4 1.13 Medications Medications Current Medications Acetaminophen (Acetaminophen 325 Mg Tablet) 650 mg PO Q6H PRN PRN Reason: Headache/Pain Mild Scale (1-3) Al Hydroxide/Mg Hydroxide (Magnesium Hydrox/Alum Hydrox 30 Ml Oral.Susp) 30 ml PO Q6H PRN PRN Reason: Heartburn/Nausea Hydroxyzine HCl (Hydroxyzine Hcl 25 Mg Tablet) 25 mg PO Q6H PRN PRN Reason: Anxiety Magnesium Hydroxide (Milk Of Magnesia 30 Ml Oral.Susp) 30 ml PO DAILY PRN PRN Reason: Constipation Nicotine Polacrilex (Nicotine Polacrilex 2 Mg Gum) 2 mg BUCCAL Q1H PRN PRN Reason: Nicotine Cravings Last Admin: 12/21/23 07:02 Dose: 2 mg Olanzapine (Olanzapine 5 Mg Tablet) 5 mg PO BEDTIME LARRY Last Admin: 12/20/23 20:34 Dose: Not Given Trazodone HCl (Trazodone Hcl 50 Mg Tablet) 50 mg PO BEDTIME [id number] PRN PRN Reason: Insomnia Allergies Allergies Allergy/AdvReac Type Severity Reaction Status Date / Time No Known Allergies Allergy Verified 12/18/23 15:02 Assessment & Plan Assessment & Plan (1) Paranoid delusion: Status: Acute Code(s): 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 collect collateral. w/u medical etiologies for late change in mental status on , up next . will likely file due to recent h/o physical aggression and threatening behavior. 12/19: encouraged again to take medication. delusions explored in more detail, making statement suggestive of AH, which would remove delusional disorder from the differential and leave a psychotic disorder as diagnosis. legal circumstance reviewd, horne warning given. continue current mgmt. 12/20: Declining medications. Continue plan per primary team. Reason for continued inpatient stay Substantial Risk for: harm to others, inability to function and rapid decompensation Time Spent With Patient Time: Total time managing care of this patient today ____ minutes.
[2023-12-21 20:00] VITALS: BP 119/66; PULSE 85; RESP 18; TEMP 36.8; O2SAT 97
[2023-12-22] MEDS: Nicotine Polacrilex 2 MG GUM BUCCAL ×5 (06:54→22:29)
[2023-12-22 07:36] VITALS: BP 110/69; PULSE 77; RESP 16; TEMP 36.4; O2SAT 94
--- NOTE | 2023-12-22 15:51 | HO.PSYCHPN ---
Subjective Subjective Date of Service: 12/22/23 Reason For Visit: psychosis Interim History: Patient remains calm and cooperative on the unit although refusing any psychotropic medications. He denies any psychiatric symptoms and believes things that were said in the crisis report are not true. He remains focused on the crisis team, his landlord and police conspiracy. Denies SI. He is visible on the unit. Interacting with others and attends groups. Review of Systems Constitutional: Reports no additional constitutional complaints, Denies chills, Denies fever(s) and Denies night sweats Eyes: Reports no additional eye complaints, Denies blurry vision, Denies change in vision, Denies diplopia, Denies eye discharge, Denies loss of vision and Denies eye pain Denies dizziness Cardiovascular: Reports no additional cardiovascular complaints, Denies chest pain, Denies lightheadedness, Denies Loss of Consciousness and Denies dyspnea Respiratory: Reports no additional respiratory complaints and Denies dyspnea Gastrointestinal: Reports no additional gastrointestinal complaints, Denies abdominal pain, Denies melena, Denies hematochezia, Denies change in bowel habits and Denies change in stool character Genitourinary: Reports no additional male genitourinary complaints, Denies hematuria, Denies oliguria, Denies difficulty urinating, Denies dysuria, Denies urinary frequency, Denies urinary hesitancy, Denies urinary incontinence and Denies urinary urgency Musculoskeletal: Reports no additional musculoskeletal complaints, Denies numbness and Denies tingling Denies dizziness, Denies loss of vision, Denies numbness and Denies tingling Psychiatric: Reports auditory hallucinations and Reports tactile hallucinations Endocrine: Reports no additional endocrine complaints Hematologic/Lymphatic: Reports no additional hematologic/lymphatic complaints Allergic/Immunologic: Reports no additional allergic/immunologic complaints Mental Status Exam Mental Status Exam Narrative: adequately dressed and groomed. cooperative, pleasant, polite. no PMA/PMR. speech incr rate and amount, nml loudness, decr latency, nml prosody. thoughts linear and illogical. affect full range, flexible, normo-intense, non-labile. mood not assessed. no SI/SIBI/HI/VH expressed. Paranoid delusions. endorses likely AH. Diagnostics Vital Signs (24Hr): Vital Signs - 24 hr 12/21/23 20:00 12/22/23 07:36 Temperature 98.2 F 97.5 F Pulse Rate 85 77 Respiratory Rate 18 16 Blood Pressure 119/66 110/69 Pulse Oximetry 97 94 Oxygen Delivery Method Room Air Room Air BMI result Body Mass Index 22.6 Labs 12/18/23 15:27 12/18/23 15:27 Medications Medications Current Medications Acetaminophen (Acetaminophen 325 Mg Tablet) 650 mg PO Q6H PRN PRN Reason: Headache/Pain Mild Scale (1-3) Al Hydroxide/Mg Hydroxide (Magnesium Hydrox/Alum Hydrox 30 Ml Oral.Susp) 30 ml PO Q6H PRN PRN Reason: Heartburn/Nausea Hydroxyzine HCl (Hydroxyzine Hcl 25 Mg Tablet) 25 mg PO Q6H PRN PRN Reason: Anxiety Magnesium Hydroxide (Milk Of Magnesia 30 Ml Oral.Susp) 30 ml PO DAILY PRN PRN Reason: Constipation Nicotine Polacrilex (Nicotine Polacrilex 2 Mg Gum) 2 mg BUCCAL Q1H PRN PRN Reason: Nicotine Cravings Last Admin: 12/22/23 13:55 Dose: 2 mg Olanzapine (Olanzapine 5 Mg Tablet) 5 mg PO BEDTIME LARRY Last Admin: 12/21/23 20:42 Dose: Not Given Trazodone HCl (Trazodone Hcl 50 Mg Tablet) 50 mg PO BEDTIME MRX1 PRN PRN Reason: Insomnia Allergies Allergies Allergy/AdvReac Type Severity Reaction Status Date / Time No Known Allergies Allergy Verified 12/18/23 15:02 Assessment & Plan Assessment & Plan (1) Paranoid delusion: Status: Acute Code(s): 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 collect collateral. w/u medical etiologies for late change in mental status on , up next . will likely file due to recent h/o physical aggression and threatening behavior. 12/19: encouraged again to take medication. delusions explored in more detail, making statement suggestive of AH, which would remove delusional disorder from the differential and leave a psychotic disorder as diagnosis. legal circumstance reviewd, horne warning given. continue current mgmt. 12/20: Declining medications. Continue plan per primary team. 12/21: continue current management and treatment plan. Reason for continued inpatient stay Substantial Risk for: inability to function and rapid decompensation Time Spent With Patient Time: Total time managing care of this patient today ____ minutes.
[2023-12-22 20:00] VITALS: BP 116/70; PULSE 80; RESP 16; TEMP 36.4; O2SAT 96
[2023-12-23 07:25] VITALS: BP 119/70; PULSE 72; RESP 14; TEMP 36.6; O2SAT 95
[2023-12-23] MEDS: Nicotine Polacrilex 2 MG GUM BUCCAL ×5 (08:07→22:53)
--- NOTE | 2023-12-23 10:46 | HO.PSYCHPN ---
Subjective Subjective Date of Service: 12/23/23 Reason For Visit: psychosis Interim History: Patient remains calm and cooperative on the unit although refusing any psychotropic medications. He says nothing new I have nothing to report. Denies SI. Pleasant in the milieu. He is visible on the unit. Interacting with others and attends groups. Review of Systems Constitutional: Reports no additional constitutional complaints, Denies chills, Denies fever(s) and Denies night sweats Eyes: Reports no additional eye complaints, Denies blurry vision, Denies change in vision, Denies diplopia, Denies eye discharge, Denies loss of vision and Denies eye pain Denies dizziness Cardiovascular: Reports no additional cardiovascular complaints, Denies chest pain, Denies lightheadedness, Denies Loss of Consciousness and Denies dyspnea Respiratory: Reports no additional respiratory complaints and Denies dyspnea Gastrointestinal: Reports no additional gastrointestinal complaints, Denies abdominal pain, Denies melena, Denies hematochezia, Denies change in bowel habits and Denies change in stool character Genitourinary: Reports no additional male genitourinary complaints, Denies hematuria, Denies oliguria, Denies difficulty urinating, Denies dysuria, Denies urinary frequency, Denies urinary hesitancy, Denies urinary incontinence and Denies urinary urgency Musculoskeletal: Reports no additional musculoskeletal complaints, Denies numbness and Denies tingling Denies dizziness, Denies loss of vision, Denies numbness and Denies tingling Psychiatric: Reports auditory hallucinations and Reports tactile hallucinations Endocrine: Reports no additional endocrine complaints Hematologic/Lymphatic: Reports no additional hematologic/lymphatic complaints Allergic/Immunologic: Reports no additional allergic/immunologic complaints Mental Status Exam Mental Status Exam Narrative: adequately dressed and groomed. cooperative, pleasant, polite. no PMA/PMR. speech incr rate and amount, nml loudness, decr latency, nml prosody. thoughts linear and illogical. affect full range, flexible, normo-intense, non-labile. mood not assessed. no SI/SIBI/HI/VH expressed. Paranoid delusions. endorses likely AH. Diagnostics Vital Signs (24Hr): Vital Signs - 24 hr 12/22/23 20:00 12/23/23 07:25 Temperature 97.6 F 97.8 F Pulse Rate 80 72 Respiratory Rate 16 14 Blood Pressure 116/70 119/70 Pulse Oximetry 96 95 Oxygen Delivery Method Room Air Room Air BMI result Body Mass Index 22.6 Labs 12/18/23 15:27 12/18/23 15:27 Medications Medications Current Medications Acetaminophen (Acetaminophen 325 Mg Tablet) 650 mg PO Q6H PRN PRN Reason: Headache/Pain Mild Scale (1-3) Al Hydroxide/Mg Hydroxide (Magnesium Hydrox/Alum Hydrox 30 Ml Oral.Susp) 30 ml PO Q6H PRN PRN Reason: Heartburn/Nausea Hydroxyzine HCl (Hydroxyzine Hcl 25 Mg Tablet) 25 mg PO Q6H PRN PRN Reason: Anxiety Magnesium Hydroxide (Milk Of Magnesia 30 Ml Oral.Susp) 30 ml PO DAILY PRN PRN Reason: Constipation Nicotine Polacrilex (Nicotine Polacrilex 2 Mg Gum) 2 mg BUCCAL Q1H PRN PRN Reason: Nicotine Cravings Last Admin: 12/23/23 08:07 Dose: 2 mg Olanzapine (Olanzapine 5 Mg Tablet) 5 mg PO BEDTIME LARRY Last Admin: 12/22/23 20:48 Dose: Not Given Trazodone HCl (Trazodone Hcl 50 Mg Tablet) 50 mg PO BEDTIME MRX1 PRN PRN Reason: Insomnia Allergies Allergies Allergy/AdvReac Type Severity Reaction Status Date / Time No Known Allergies Allergy Verified 12/18/23 15:02 Assessment & Plan Assessment & Plan (1) Paranoid delusion: Status: Acute Code(s): 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 collect collateral. w/u medical etiologies for late change in mental status on , up next . will likely file due to recent h/o physical aggression and threatening behavior. 12/19: encouraged again to take medication. delusions explored in more detail, making statement suggestive of AH, which would remove delusional disorder from the differential and leave a psychotic disorder as diagnosis. legal circumstance reviewd, horne warning given. continue current mgmt. 12/20: Declining medications. Continue plan per primary team. 12/21: continue current management and treatment plan. 12/22: continue current management and treatment plan. Reason for continued inpatient stay Substantial Risk for: harm to others, inability to function and rapid decompensation Time Spent With Patient Time: Total time managing care of this patient today ____ minutes.
[2023-12-23 20:00] VITALS: BP 127/76; PULSE 97; RESP 16; TEMP 36.6; O2SAT 95
[2023-12-24] MEDS: Nicotine Polacrilex 2 MG GUM BUCCAL ×4 (06:40→21:44)
[2023-12-24 07:05] VITALS: BP 120/67; PULSE 73; RESP 16; TEMP 36.6; O2SAT 96
--- NOTE | 2023-12-24 16:05 | HO.PSYCHPN ---
Subjective Subjective Date of Service: 12/24/23 Reason For Visit: psychosis Interim History: calm, cooperative. no change in delusional system. court filing process and timeline reviewed. c/o painful shocks in toes, foreground and background voices: is he ? check the infrared. reports night after night after night of edgar hernández david. per staff, 12b up tomorrow. attending groups. deoesn't want meds. +anxiety. delusional. slept about 6 hours. refusing zyprexa. Mental Status Exam Mental Status Exam Narrative: adequately dressed and groomed. cooperative, pleasant, polite. no PMA/PMR. speech nml rate, incr amount, nml loudness, decr latency, nml prosody. thoughts linear and illogical. affect full range, flexible, hyper-intense, non-labile. mood not assessed. no SI/SIBI/HI/VH expressed. endorses h/o AH, denying any since admission to the hospital. Diagnostics Vital Signs (24Hr): Vital Signs - 24 hr 12/23/23 20:00 12/24/23 07:05 Temperature 97.8 F 97.8 F Pulse Rate 97 73 Respiratory Rate 16 16 Blood Pressure 127/76 120/67 Pulse Oximetry 95 96 Oxygen Delivery Method Room Air Room Air BMI result Body Mass Index 22.6 Labs 12/18/23 15:27 12/18/23 15:27 Medications Medications Current Medications Acetaminophen (Acetaminophen 325 Mg Tablet) 650 mg PO Q6H PRN PRN Reason: Headache/Pain Mild Scale (1-3) Al Hydroxide/Mg Hydroxide (Magnesium Hydrox/Alum Hydrox 30 Ml Oral.Susp) 30 ml PO Q6H PRN PRN Reason: Heartburn/Nausea Hydroxyzine HCl (Hydroxyzine Hcl 25 Mg Tablet) 25 mg PO Q6H PRN PRN Reason: Anxiety Magnesium Hydroxide (Milk Of Magnesia 30 Ml Oral.Susp) 30 ml PO DAILY PRN PRN Reason: Constipation Nicotine Polacrilex (Nicotine Polacrilex 2 Mg Gum) 2 mg BUCCAL Q1H PRN PRN Reason: Nicotine Cravings Last Admin: 12/24/23 12:06 Dose: 2 mg Olanzapine (Olanzapine 5 Mg Tablet) 5 mg PO BEDTIME LARRY Last Admin: 12/23/23 21:10 Dose: Not Given Trazodone HCl (Trazodone Hcl 50 Mg Tablet) 50 mg PO BEDTIME MRX1 PRN PRN Reason: Insomnia Allergies Allergies Allergy/AdvReac Type Severity Reaction Status Date / Time No Known Allergies Allergy Verified 12/18/23 15:02 Assessment & Plan Assessment & Plan (1) Paranoid delusion: Status: Acute Code(s): 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 collect collateral. w/u medical etiologies for late change in mental status on , up next . will likely file due to recent h/o physical aggression and threatening behavior. 12/19: encouraged again to take medication. delusions explored in more detail, making statement suggestive of AH, which would remove delusional disorder from the differential and leave a psychotic disorder as diagnosis. legal circumstance reviewd, horne warning given. continue current mgmt. 12/20: Declining medications. Continue plan per primary team. 12/21: continue current management and treatment plan. 12/22: continue current management and treatment plan. 12/23: reporting more detailed h/o AH in addition to delusions, making psychotic D/O likely over delusional D/O. up tomorrow. Reason for continued inpatient stay Substantial Risk for: harm to others and inability to function Time Spent With Patient Time: Total time managing care of this patient today _45___ minutes.
[2023-12-24 20:00] VITALS: BP 127/72; PULSE 92; RESP 16; TEMP 37; O2SAT 96
[2023-12-25 07:20] VITALS: BP 123/70; PULSE 71; RESP 18; TEMP 36.4; O2SAT 97
[2023-12-25] MEDS: Nicotine Polacrilex 2 MG GUM BUCCAL ×4 (07:24→20:39)
--- NOTE | 2023-12-25 13:55 | HO.PSYCHPN ---
Subjective Subjective Date of Service: 12/25/23 Reason For Visit: psychosis Interim History: calm, cooperative. declined medication last night. reconsidering for tonight. aware of filing for commitment. per staff, no notable events or behaviors. Mental Status Exam Mental Status Exam Narrative: adequately dressed and groomed. cooperative, pleasant, polite. no PMA/PMR. speech nml rate, incr amount, nml loudness, decr latency, nml prosody. thoughts linear and illogical. affect full range, flexible, hyper-intense, non-labile. mood not assessed. no SI/SIBI/HI/VH expressed. endorses h/o AH, denying any since admission to the hospital. Diagnostics Vital Signs (24Hr): Vital Signs - 24 hr 12/24/23 20:00 12/25/23 07:20 Temperature 98.6 F 97.5 F Pulse Rate 92 71 Respiratory Rate 16 18 Blood Pressure 127/72 123/70 Pulse Oximetry 96 97 Oxygen Delivery Method Room Air Room Air BMI result Body Mass Index 22.6 Labs 12/18/23 15:27 12/18/23 15:27 Medications Medications Current Medications Acetaminophen (Acetaminophen 325 Mg Tablet) 650 mg PO Q6H PRN PRN Reason: Headache/Pain Mild Scale (1-3) Al Hydroxide/Mg Hydroxide (Magnesium Hydrox/Alum Hydrox 30 Ml Oral.Susp) 30 ml PO Q6H PRN PRN Reason: Heartburn/Nausea Hydroxyzine HCl (Hydroxyzine Hcl 25 Mg Tablet) 25 mg PO Q6H PRN PRN Reason: Anxiety Magnesium Hydroxide (Milk Of Magnesia 30 Ml Oral.Susp) 30 ml PO DAILY PRN PRN Reason: Constipation Nicotine Polacrilex (Nicotine Polacrilex 2 Mg Gum) 2 mg BUCCAL Q1H PRN PRN Reason: Nicotine Cravings Last Admin: 12/25/23 10:47 Dose: 2 mg Olanzapine (Olanzapine 5 Mg Tablet) 5 mg PO BEDTIME LARRY Last Admin: 12/24/23 21:45 Dose: Not Given Trazodone HCl (Trazodone Hcl 50 Mg Tablet) 50 mg PO BEDTIME MRX1 PRN PRN Reason: Insomnia Allergies Allergies Allergy/AdvReac Type Severity Reaction Status Date / Time No Known Allergies Allergy Verified 12/18/23 15:02 Assessment & Plan Assessment & Plan (1) Paranoid delusion: Status: Acute Code(s): 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 collect collateral. w/u medical etiologies for late change in mental status on , up next . will likely file due to recent h/o physical aggression and threatening behavior. 12/19: encouraged again to take medication. delusions explored in more detail, making statement suggestive of AH, which would remove delusional disorder from the differential and leave a psychotic disorder as diagnosis. legal circumstance reviewd, horne warning given. continue current mgmt. 12/20: Declining medications. Continue plan per primary team. 12/21: continue current management and treatment plan. 12/22: continue current management and treatment plan. 12/23: reporting more detailed h/o AH in addition to delusions, making psychotic D/O likely over delusional D/O. 12b up tomorrow. 12/24: filed for commitment. no change in presentation. no concerning behaviors inpatient. continue to offer HS zyprexa. Reason for continued inpatient stay Substantial Risk for: harm to others and inability to function Time Spent With Patient Time: Total time managing care of this patient today __35__ minutes.
[2023-12-25 21:17] VITALS: BP 133/72; PULSE 92; RESP 16; TEMP 36.4; O2SAT 96
[2023-12-25] MEDS: OLANZapine 5 MG TABLET PO (22:53)
[2023-12-26 07:00] VITALS: BMI 23.4
[2023-12-26 07:35] VITALS: BP 121/62; PULSE 69; RESP 14; TEMP 36.5; O2SAT 97
[2023-12-26] MEDS: Nicotine Polacrilex 2 MG GUM BUCCAL ×4 (07:41→21:38)
--- NOTE | 2023-12-26 12:03 | HO.PSYCHPN ---
Subjective Subjective Date of Service: 12/26/23 Reason For Visit: psychosis Interim History: calm, cooperative, pleasant. reasonable questions about likely outcomes, legal process, anticipated discharge, arrangements to pay his rent. reports he took the zyprexa 5 mg last night and felt a bit groggy this morning and felt he had a hard time speaking for motor reasons very briefly upon awakening. he will take the medication again tonight and see how he feels again in the morning. per staff, broad affect. no SI/HI/AVH. had zyprexa 5 at HS. slept 8 hours. Mental Status Exam Mental Status Exam Narrative: adequately dressed and groomed. cooperative, pleasant, polite. no PMA/PMR. speech nml rate, incr amount, nml loudness, decr latency, nml prosody. thoughts linear and logical. affect full range, flexible, hyper-intense, non-labile. mood not assessed. no SI/SIBI/HI/VH expressed. endorses h/o AH, denying any since admission to the hospital. Diagnostics Vital Signs (24Hr): Vital Signs - 24 hr 12/25/23 21:17 12/26/23 07:35 Temperature 97.6 F 97.7 F Pulse Rate 92 69 Respiratory Rate 16 14 Blood Pressure 133/72 121/62 Pulse Oximetry 96 97 Oxygen Delivery Method Room Air Room Air BMI result Body Mass Index 23.4 Labs 12/18/23 15:27 12/18/23 15:27 Medications Medications Current Medications Acetaminophen (Acetaminophen 325 Mg Tablet) 650 mg PO Q6H PRN PRN Reason: Headache/Pain Mild Scale (1-3) Al Hydroxide/Mg Hydroxide (Magnesium Hydrox/Alum Hydrox 30 Ml Oral.Susp) 30 ml PO Q6H PRN PRN Reason: Heartburn/Nausea Hydroxyzine HCl (Hydroxyzine Hcl 25 Mg Tablet) 25 mg PO Q6H PRN PRN Reason: Anxiety Magnesium Hydroxide (Milk Of Magnesia 30 Ml Oral.Susp) 30 ml PO DAILY PRN PRN Reason: Constipation Nicotine Polacrilex (Nicotine Polacrilex 2 Mg Gum) 2 mg BUCCAL Q1H PRN PRN Reason: Nicotine Cravings Last Admin: 12/26/23 07:41 Dose: 2 mg Olanzapine (Olanzapine 5 Mg Tablet) 5 mg PO BEDTIME LARRY Last Admin: 12/25/23 22:53 Dose: 5 mg Trazodone HCl (Trazodone Hcl 50 Mg Tablet) 50 mg PO BEDTIME MRX1 PRN PRN Reason: Insomnia Allergies Allergies Allergy/AdvReac Type Severity Reaction Status Date / Time No Known Allergies Allergy Verified 12/18/23 15:02 Assessment & Plan Assessment & Plan (1) Paranoid delusion: Status: Acute Code(s): 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 collect collateral. w/u medical etiologies for late change in mental status on , up next . will likely file due to recent h/o physical aggression and threatening behavior. 12/19: encouraged again to take medication. delusions explored in more detail, making statement suggestive of AH, which would remove delusional disorder from the differential and leave a psychotic disorder as diagnosis. legal circumstance reviewd, horne warning given. continue current mgmt. 12/20: Declining medications. Continue plan per primary team. 12/21: continue current management and treatment plan. 12/22: continue current management and treatment plan. 12/23: reporting more detailed h/o AH in addition to delusions, making psychotic D/O likely over delusional D/O. 12b up tomorrow. 12/24: filed for commitment. no change in presentation. no concerning behaviors inpatient. continue to offer HS zyprexa. 12/25: took zyprexa 5 last night for the first time. no change in presentation. continue current mgmt. Reason for continued inpatient stay Substantial Risk for: harm to others and inability to function Time Spent With Patient Time: Total time managing care of this patient today __25__ minutes.
[2023-12-26 19:35] VITALS: BP 124/70; PULSE 92; RESP 18; TEMP 36.6; O2SAT 95
[2023-12-26] MEDS: OLANZapine 5 MG TABLET PO (21:38)
[2023-12-27 07:54] VITALS: BP 119/71; PULSE 82; RESP 16; TEMP 36.7; O2SAT 97
[2023-12-27] MEDS: Nicotine Polacrilex 2 MG GUM BUCCAL ×4 (09:42→22:21)
--- NOTE | 2023-12-27 13:34 | HO.PSYCHPN ---
Subjective Subjective Date of Service: 12/27/23 Reason For Visit: psychosis Interim History: no change in presentation or behavior on unit. calm, cooperative, no behaviors of concern. agreeable to further labs for r/o of medical etiologies. still some grogginess and perceived motor issues for a few minutes upn awakening. will see rotary swaging machine operator today. Mental Status Exam Mental Status Exam Narrative: adequately dressed and groomed. cooperative, pleasant, polite. no PMA/PMR. speech nml rate, incr amount, nml loudness, decr latency, nml prosody. thoughts linear and logical. affect full range, flexible, hyper-intense, non-labile. mood not assessed. no SI/SIBI/HI/VH expressed. endorses h/o AH, denying any since admission to the hospital. Diagnostics Vital Signs (24Hr): Vital Signs - 24 hr 12/26/23 19:35 12/27/23 07:54 Temperature 97.9 F 98.0 F Pulse Rate 92 82 Respiratory Rate 18 16 Blood Pressure 124/70 119/71 Pulse Oximetry 95 97 Oxygen Delivery Method Room Air Room Air BMI result Body Mass Index 23.4 Labs 12/18/23 15:27 12/18/23 15:27 Medications Medications Current Medications Acetaminophen (Acetaminophen 325 Mg Tablet) 650 mg PO Q6H PRN PRN Reason: Headache/Pain Mild Scale (1-3) Al Hydroxide/Mg Hydroxide (Magnesium Hydrox/Alum Hydrox 30 Ml Oral.Susp) 30 ml PO Q6H PRN PRN Reason: Heartburn/Nausea Hydroxyzine HCl (Hydroxyzine Hcl 25 Mg Tablet) 25 mg PO Q6H PRN PRN Reason: Anxiety Magnesium Hydroxide (Milk Of Magnesia 30 Ml Oral.Susp) 30 ml PO DAILY PRN PRN Reason: Constipation Nicotine Polacrilex (Nicotine Polacrilex 2 Mg Gum) 2 mg BUCCAL Q1H PRN PRN Reason: Nicotine Cravings Last Admin: 12/27/23 09:42 Dose: 2 mg Olanzapine (Olanzapine 5 Mg Tablet) 5 mg PO BEDTIME LARRY Last Admin: 12/26/23 21:38 Dose: 5 mg Trazodone HCl (Trazodone Hcl 50 Mg Tablet) 50 mg PO BEDTIME MRX1 PRN PRN Reason: Insomnia Allergies Allergies Allergy/AdvReac Type Severity Reaction Status Date / Time No Known Allergies Allergy Verified 12/18/23 15:02 Assessment & Plan Assessment & Plan (1) Paranoid delusion: Status: Acute Code(s): 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 collect collateral. w/u medical etiologies for late change in mental status on , up next . will likely file due to recent h/o physical aggression and threatening behavior. 12/19: encouraged again to take medication. delusions explored in more detail, making statement suggestive of AH, which would remove delusional disorder from the differential and leave a psychotic disorder as diagnosis. legal circumstance reviewd, horne warning given. continue current mgmt. 12/20: Declining medications. Continue plan per primary team. 12/21: continue current management and treatment plan. 12/22: continue current management and treatment plan. 12/23: reporting more detailed h/o AH in addition to delusions, making psychotic D/O likely over delusional D/O. 12b up tomorrow. 12/24: filed for commitment. no change in presentation. no concerning behaviors inpatient. continue to offer HS zyprexa. 12/25: took zyprexa 5 last night for the first time. no change in presentation. continue current mgmt. 12/26: zyprexa again last night. no change in presentation. CMP, CBC, TSH, B12, folate unremarkable. will check ESR, CRP, HIV, RPR, SILVIO, HbA1C, MRI brain to r/o other medical causes of psychosis. Reason for continued inpatient stay Substantial Risk for: harm to others and inability to function Time Spent With Patient Time: Total time managing care of this patient today __35__ minutes.
[2023-12-27 14:39] LABS: Estimated Average Glucose 123 mg/dL; Hemoglobin A1c % 5.9 % (<6.0)
[2023-12-27 14:44] LABS: C Reactive Protein 0.19 mg/dL (< or = 0.50)
[2023-12-27 15:04] LABS: HIV AB/AG Nonreactive (Nonreactive); HIV Num 1 0.05 S/CO (0.00-0.99); Syphilis Screen Nonreactive (Nonreactive)
[2023-12-27 15:06] LABS: Erythrocyte Sedimentation Rate 1 MM/HR (0-15)
[2023-12-27 20:00] VITALS: BP 111/61; PULSE 107; RESP 16; TEMP 36.7; O2SAT 95
[2023-12-27] MEDS: OLANZapine 5 MG TABLET PO (22:02)
[2023-12-28 07:28] VITALS: BP 119/70; PULSE 73; RESP 15; TEMP 36.9; O2SAT 94
[2023-12-28] MEDS: Nicotine Polacrilex 2 MG GUM BUCCAL ×5 (08:18→21:24)
--- NOTE | 2023-12-28 11:13 | HO.PSYCHPN ---
Subjective Subjective Date of Service: 12/28/23 Reason For Visit: psychosis Subjective Notes: Section 7 Interim History: met with patient. Discussed with Nursing. Sitting in the day area for most of the day. Told justowriter operator that he is focused on court hearing and documenting an audio recording. Does have court paperwork in front of him. Did not want to go into details. Denied any sleep disturbance, SI HI or feeling unsafe on the unit Medication Compliance: No Side effects from medications: No Attending Groups: Yes Review of Systems Acute medical concerns: No Mental Status Exam Mental Status Exam Narrative: adequately dressed and groomed. cooperative, pleasant, polite. no PMA/PMR. speech nml rate, incr amount, nml loudness, decr latency, nml prosody. thoughts linear and logical. affect full range, flexible, hyper-intense, non-labile. mood not assessed. no SI/SIBI/HI/VH expressed. endorses h/o AH, denying any since admission to the hospital. Diagnostics Vital Signs (24Hr): Vital Signs - 24 hr 12/27/23 20:00 12/28/23 07:28 Temperature 98.1 F 98.4 F Pulse Rate 107 H 73 Respiratory Rate 16 15 Blood Pressure 111/61 119/70 Pulse Oximetry 95 94 Oxygen Delivery Method Room Air Room Air BMI result Body Mass Index 23.4 Labs 12/18/23 15:27 12/18/23 15:27 Labs: Laboratory Results - last 48 hr 12/27/23 12/27/23 14:12 14:13 ESR 1 Estimat Average Glucose 123 Hemoglobin A1c % 5.9 C-Reactive Protein 0.19 T.pallidum Ab (EIA) Nonreactive HIV 1&2 Ab/P24 Ag 4thGn Nonreactive Medications Medications Current Medications Acetaminophen (Acetaminophen 325 Mg Tablet) 650 mg PO Q6H PRN PRN Reason: Headache/Pain Mild Scale (1-3) Al Hydroxide/Mg Hydroxide (Magnesium Hydrox/Alum Hydrox 30 Ml Oral.Susp) 30 ml PO Q6H PRN PRN Reason: Heartburn/Nausea Hydroxyzine HCl (Hydroxyzine Hcl 25 Mg Tablet) 25 mg PO Q6H PRN PRN Reason: Anxiety Magnesium Hydroxide (Milk Of Magnesia 30 Ml Oral.Susp) 30 ml PO DAILY PRN PRN Reason: Constipation Nicotine Polacrilex (Nicotine Polacrilex 2 Mg Gum) 2 mg BUCCAL Q1H PRN PRN Reason: Nicotine Cravings Last Admin: 12/28/23 11:02 Dose: 2 mg Olanzapine (Olanzapine 5 Mg Tablet) 5 mg PO BEDTIME LARRY Last Admin: 12/27/23 22:02 Dose: 5 mg Trazodone HCl (Trazodone Hcl 50 Mg Tablet) 50 mg PO BEDTIME MRX1 PRN PRN Reason: Insomnia Allergies Allergies Allergy/AdvReac Type Severity Reaction Status Date / Time No Known Allergies Allergy Verified 12/18/23 15:02 Assessment & Plan Assessment & Plan (1) Paranoid delusion: Status: Acute Code(s): 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 collect collateral. w/u medical etiologies for late change in mental status on , up next . will likely file due to recent h/o physical aggression and threatening behavior. 12/19: encouraged again to take medication. delusions explored in more detail, making statement suggestive of AH, which would remove delusional disorder from the differential and leave a psychotic disorder as diagnosis. legal circumstance reviewd, horne warning given. continue current mgmt. 12/20: Declining medications. Continue plan per primary team. 12/21: continue current management and treatment plan. 12/22: continue current management and treatment plan. 12/23: reporting more detailed h/o AH in addition to delusions, making psychotic D/O likely over delusional D/O. 12b up tomorrow. 12/24: filed for commitment. no change in presentation. no concerning behaviors inpatient. continue to offer HS zyprexa. 12/25: took zyprexa 5 last night for the first time. no change in presentation. continue current mgmt. 12/26: zyprexa again last night. no change in presentation. CMP, CBC, TSH, B12, folate unremarkable. will check ESR, CRP, HIV, RPR, SILVIO, HbA1C, MRI brain to r/o other medical causes of psychosis. 12/28/2023: No changes to current treatment plan Reason for continued inpatient stay Substantial Risk for: rapid decompensation Time Spent With Patient Time: Total time managing care of this patient today ____ minutes.
[2023-12-28 20:00] VITALS: BP 134/78; PULSE 64; RESP 16; TEMP 36.9; O2SAT 97
[2023-12-28] MEDS: OLANZapine 5 MG TABLET PO (22:47)
[2023-12-29 07:20] VITALS: BP 118/71; PULSE 76; RESP 16; TEMP 36.6; O2SAT 97
[2023-12-29] MEDS: Nicotine Polacrilex 2 MG GUM BUCCAL ×4 (07:57→21:14)
--- NOTE | 2023-12-29 11:11 | HO.PSYCHPN ---
Subjective Subjective Date of Service: 12/29/23 Reason For Visit: psychosis Interim History: met with patient. Discussed with Nursing. Sitting in the day area and writing. was asking about access to an audio recorded he has, so he can review the recordings and document on same, which might be relevant for court. Redirected to discuss this with his primary team tomorrow. patient reports he has been adherent with medications and overall tolerating them. Denies any physical concerns, concerns regarding patients or staff in the hospital setting. Reports his main symptoms or concerns were at home. Denied any sleep disturbance, SI HI or feeling unsafe on the unit Medication Compliance: Yes Side effects from medications: No Attending Groups: Yes Review of Systems Acute medical concerns: No Review of Systems Review of Systems unremarkable Mental Status Exam Mental Status Exam Narrative: adequately dressed and groomed. cooperative, pleasant, polite. no PMA/PMR. speech nml rate, incr amount, nml loudness, decr latency, nml prosody. thoughts linear and logical. affect full range, flexible, hyper-intense, non-labile. mood not assessed. no SI/SIBI/HI/VH expressed. endorses h/o AH, denying any since admission to the hospital. Diagnostics Vital Signs (24Hr): Vital Signs - 24 hr 12/28/23 20:00 12/29/23 07:20 Temperature 98.5 F 97.9 F Pulse Rate 64 76 Respiratory Rate 16 16 Blood Pressure 134/78 118/71 Pulse Oximetry 97 97 Oxygen Delivery Method Room Air Room Air BMI result Body Mass Index 23.4 Labs 12/18/23 15:27 12/18/23 15:27 Labs: Laboratory Results - last 48 hr 12/27/23 12/27/23 14:12 14:13 ESR 1 Estimat Average Glucose 123 Hemoglobin A1c % 5.9 C-Reactive Protein 0.19 T.pallidum Ab (EIA) Nonreactive HIV 1&2 Ab/P24 Ag 4thGn Nonreactive Medications Medications Current Medications Acetaminophen (Acetaminophen 325 Mg Tablet) 650 mg PO Q6H PRN PRN Reason: Headache/Pain Mild Scale (1-3) Al Hydroxide/Mg Hydroxide (Magnesium Hydrox/Alum Hydrox 30 Ml Oral.Susp) 30 ml PO Q6H PRN PRN Reason: Heartburn/Nausea Hydroxyzine HCl (Hydroxyzine Hcl 25 Mg Tablet) 25 mg PO Q6H PRN PRN Reason: Anxiety Magnesium Hydroxide (Milk Of Magnesia 30 Ml Oral.Susp) 30 ml PO DAILY PRN PRN Reason: Constipation Nicotine Polacrilex (Nicotine Polacrilex 2 Mg Gum) 2 mg BUCCAL Q1H PRN PRN Reason: Nicotine Cravings Last Admin: 12/29/23 07:57 Dose: 2 mg Olanzapine (Olanzapine 5 Mg Tablet) 5 mg PO BEDTIME LARRY Last Admin: 12/28/23 22:47 Dose: 5 mg Trazodone HCl (Trazodone Hcl 50 Mg Tablet) 50 mg PO BEDTIME MRX1 PRN PRN Reason: Insomnia Allergies Allergies Allergy/AdvReac Type Severity Reaction Status Date / Time No Known Allergies Allergy Verified 12/18/23 15:02 Assessment & Plan Assessment & Plan (1) Paranoid delusion: Status: Acute Code(s): 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 collect collateral. w/u medical etiologies for late change in mental status on , up next . will likely file due to recent h/o physical aggression and threatening behavior. 12/19: encouraged again to take medication. delusions explored in more detail, making statement suggestive of AH, which would remove delusional disorder from the differential and leave a psychotic disorder as diagnosis. legal circumstance reviewd, horne warning given. continue current mgmt. 12/20: Declining medications. Continue plan per primary team. 12/21: continue current management and treatment plan. 12/22: continue current management and treatment plan. 12/23: reporting more detailed h/o AH in addition to delusions, making psychotic D/O likely over delusional D/O. b up tomorrow. 12/24: filed for commitment. no change in presentation. no concerning behaviors inpatient. continue to offer HS zyprexa. 12/25: took zyprexa 5 last night for the first time. no change in presentation. continue current mgmt. 12/26: zyprexa again last night. no change in presentation. CMP, CBC, TSH, B12, folate unremarkable. will check ESR, CRP, HIV, RPR, SILVIO, HbA1C, MRI brain to r/o other medical causes of psychosis. 12/29/2023: No changes to current treatment plan Reason for continued inpatient stay Substantial Risk for: inability to function Time Spent With Patient Time: Total time managing care of this patient today ____ minutes.
[2023-12-29 20:00] VITALS: BP 133/74; PULSE 92; RESP 16; TEMP 36.8; O2SAT 96
[2023-12-29] MEDS: OLANZapine 5 MG TABLET PO (22:44)
[2023-12-30 07:33] VITALS: BP 121/65; PULSE 86; RESP 14; TEMP 36.9; O2SAT 96
[2023-12-30] MEDS: Nicotine Polacrilex 2 MG GUM BUCCAL ×5 (07:42→22:03)
--- NOTE | 2023-12-30 13:53 | P.PNPSI_ITS ---
Subjective Subjective Date of Service: 12/30/23 Reason For Visit: psychosis Interim History: remains delusional, has MD review 10 pages of what he says are transcribed recordings he made in his apartment, which detail the actions which he believes are being taken against him. reports he no longer has any motor issues upon awakening and is no longer groggy in the morning. per staff, no dep, some anxiety. attending groups. taking medication. no Sx here. slept 7 hours. Mental Status Exam Mental Status Exam Narrative: adequately dressed and groomed. cooperative, pleasant, polite. no PMA/PMR. speech nml rate, incr amount, nml loudness, decr latency, nml prosody. thoughts linear and logical. affect full range, flexible, hyper-intense, non-labile. mood not assessed. no SI/SIBI/HI/VH expressed. endorses h/o AH, denying any since admission to the hospital. Diagnostics Vital Signs (24Hr): Vital Signs - 24 hr 12/29/23 20:00 12/30/23 07:33 Temperature 98.2 F 98.4 F Pulse Rate 92 86 Respiratory Rate 16 14 Blood Pressure 133/74 121/65 Pulse Oximetry 96 96 Oxygen Delivery Method Room Air Room Air BMI result Body Mass Index 23.4 Labs 12/18/23 15:27 12/18/23 15:27 Imaging Radiology Impressions: ITS Impressions Brain MRI 12/29/23 11:30 IMPRESSION: No acute intracranial findings. There is global cerebral volume loss without mesial temporal lobe predominance and there is mild chronic microangiopathy. Once the neuro quantitative data is postprocessed, an addendum will be made. Medications Medications Current Medications Acetaminophen (Acetaminophen 325 Mg Tablet) 650 mg PO Q6H PRN PRN Reason: Headache/Pain Mild Scale (1-3) Al Hydroxide/Mg Hydroxide (Magnesium Hydrox/Alum Hydrox 30 Ml Oral.Susp) 30 ml PO Q6H PRN PRN Reason: Heartburn/Nausea Hydroxyzine HCl (Hydroxyzine Hcl 25 Mg Tablet) 25 mg PO Q6H PRN PRN Reason: Anxiety Magnesium Hydroxide (Milk Of Magnesia 30 Ml Oral.Susp) 30 ml PO DAILY PRN PRN Reason: Constipation Nicotine Polacrilex (Nicotine Polacrilex 2 Mg Gum) 2 mg BUCCAL Q1H PRN PRN Reason: Nicotine Cravings Last Admin: 12/30/23 10:11 Dose: 2 mg Olanzapine (Olanzapine 5 Mg Tablet) 5 mg PO BEDTIME LARRY Last Admin: 12/29/23 22:44 Dose: 5 mg Trazodone HCl (Trazodone Hcl 50 Mg Tablet) 50 mg PO BEDTIME MRX1 PRN PRN Reason: Insomnia Allergies Allergies Allergy/AdvReac Type Severity Reaction Status Date / Time No Known Allergies Allergy Verified 12/18/23 15:02 Assessment & Plan Assessment & Plan (1) Paranoid delusion: Status: Acute Code(s): 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 collect collateral. w/u medical etiologies for late change in mental status on , up next . will likely file due to recent h/o physical aggression and threatening behavior. 12/19: encouraged again to take medication. delusions explored in more detail, making statement suggestive of AH, which would remove delusional disorder from the differential and leave a psychotic disorder as diagnosis. legal circumstance reviewd, horne warning given. continue current mgmt. 12/20: Declining medications. Continue plan per primary team. 12/21: continue current management and treatment plan. 12/22: continue current management and treatment plan. 12/23: reporting more detailed h/o AH in addition to delusions, making psychotic D/O likely over delusional D/O. up tomorrow. 12/24: filed for commitment. no change in presentation. no concerning behaviors inpatient. continue to offer HS zyprexa. 12/25: took zyprexa 5 last night for the first time. no change in presentation. continue current mgmt. 12/26: zyprexa again last night. no change in presentation. CMP, CBC, TSH, B12, folate unremarkable. will check ESR, CRP, HIV, RPR, SILVIO, HbA1C, MRI brain to r/o other medical causes of psychosis. 12/29/2023: No changes to current treatment plan 12/29: medical w/u remains negative. SILVIO pending, but nml ESR and CRP make auto- immune disease unlikely. Reason for continued inpatient stay Substantial Risk for: inability to function Time Spent With Patient Time: Total time managing care of this patient today _35___ minutes.
[2023-12-30 14:53] LABS: Anti Nuclear Antibody Screen NEGATIVE (NEGATIVE)
[2023-12-30 19:20] VITALS: BP 133/69; PULSE 99; RESP 16; TEMP 36.4; O2SAT 99
[2023-12-30] MEDS: OLANZapine 5 MG TABLET PO (22:02)
[2023-12-31 07:39] VITALS: BP 104/68; PULSE 76; RESP 14; TEMP 36.4; O2SAT 96
[2023-12-31] MEDS: Nicotine Polacrilex 2 MG GUM BUCCAL ×5 (07:46→22:36)
--- NOTE | 2023-12-31 14:00 | P.PNPSI_ITS ---
Subjective Subjective Date of Service: 12/31/23 Reason For Visit: psychosis Interim History: seen with MARLENY Don. listen to personal recordings of pt's, which do not demonstrate any of the material which this television writer believes to be delusional, predictably. discuss physical Sx pt has been having in his apartment, lack of AH or TH in the hospital, target Sx of medication. remains med compliant, only c/o dry mouth as s/e (no motor phenomena, no sedation). per staff, denies depression. some anxiety. visible, polite. Mental Status Exam Mental Status Exam Narrative: adequately dressed and groomed. cooperative, pleasant, polite. no PMA/PMR. speech nml rate, incr amount, nml loudness, latency, nml prosody. thoughts linear and logical. affect full range, flexible, normo-intense, non-labile. mood not assessed. no SI/SIBI/HI/VH expressed. endorses h/o AH, denying any since admission to the hospital. Diagnostics Vital Signs (24Hr): Vital Signs - 24 hr 12/30/23 19:20 12/31/23 07:39 Temperature 97.6 F 97.6 F Pulse Rate 99 76 Respiratory Rate 16 14 Blood Pressure 133/69 104/68 Pulse Oximetry 99 96 Oxygen Delivery Method Room Air Room Air BMI result Body Mass Index 23.4 Labs 12/18/23 15:27 12/18/23 15:27 Labs: Laboratory Results - last 48 hr 12/27/23 14:12 SILVIO Screen NEGATIVE SILVIO Titer TNP SILVIO Titer 2 TNP SILVIO Titer 3 TNP SILVIO Pattern TNP SILVIO Pattern 2 TNP SILVIO Pattern 3 TNP Imaging Radiology Impressions: ITS Impressions Brain MRI 12/29/23 11:30 IMPRESSION: No acute intracranial findings. There is global cerebral volume loss without mesial temporal lobe predominance and there is mild chronic microangiopathy. Once the neuro quantitative data is postprocessed, an addendum will be made. Medications Medications Current Medications Acetaminophen (Acetaminophen 325 Mg Tablet) 650 mg PO Q6H PRN PRN Reason: Headache/Pain Mild Scale (1-3) Al Hydroxide/Mg Hydroxide (Magnesium Hydrox/Alum Hydrox 30 Ml Oral.Susp) 30 ml PO Q6H PRN PRN Reason: Heartburn/Nausea Benzocaine (Throat Lozenge, Medicated Lozenge) 1 lozenge MUCOUS MEM Q1H PRN PRN Reason: dry mouth Hydroxyzine HCl (Hydroxyzine Hcl 25 Mg Tablet) 25 mg PO Q6H PRN PRN Reason: Anxiety Magnesium Hydroxide (Milk Of Magnesia 30 Ml Oral.Susp) 30 ml PO DAILY PRN PRN Reason: Constipation Nicotine Polacrilex (Nicotine Polacrilex 2 Mg Gum) 2 mg BUCCAL Q1H PRN PRN Reason: Nicotine Cravings Last Admin: 12/31/23 11:13 Dose: 2 mg Olanzapine (Olanzapine 5 Mg Tablet) 5 mg PO BEDTIME LARRY Last Admin: 12/30/23 22:02 Dose: 5 mg Trazodone HCl (Trazodone Hcl 50 Mg Tablet) 50 mg PO BEDTIME MRX1 PRN PRN Reason: Insomnia Allergies Allergies Allergy/AdvReac Type Severity Reaction Status Date / Time No Known Allergies Allergy Verified 12/18/23 15:02 Assessment & Plan Assessment & Plan (1) Paranoid delusion: Status: Acute Code(s): 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 collect collateral. w/u medical etiologies for late change in mental status on , up next . will likely file due to recent h/o physical aggression and threatening behavior. 12/19: encouraged again to take medication. delusions explored in more detail, making statement suggestive of AH, which would remove delusional disorder from the differential and leave a psychotic disorder as diagnosis. legal circumstance reviewd, horne warning given. continue current mgmt. 12/20: Declining medications. Continue plan per primary team. 12/21: continue current management and treatment plan. 12/22: continue current management and treatment plan. 12/23: reporting more detailed h/o AH in addition to delusions, making psychotic D/O likely over delusional D/O. 12b up tomorrow. 12/24: filed for commitment. no change in presentation. no concerning behaviors inpatient. continue to offer HS zyprexa. 12/25: took zyprexa 5 last night for the first time. no change in presentation. continue current mgmt. 12/26: zyprexa again last night. no change in presentation. CMP, CBC, TSH, B12, folate unremarkable. will check ESR, CRP, HIV, RPR, SILVIO, HbA1C, MRI brain to r/o other medical causes of psychosis. 12/29/2023: No changes to current treatment plan 12/29: medical w/u remains negative. SILVIO pending, but nml ESR and CRP make auto- immune disease unlikely. 12/30: MoCA (lost 1 point in trail making, 2 points in recall). SILVIO negative. due to electric shock sensations in toes, T/C neuropathy and neuro consult for unknown neurodegenerative illness. continues to tolerate zyprexa 5 mg QHS. hearing 01/13. Reason for continued inpatient stay Substantial Risk for: harm to self, harm to others and inability to function Time Spent With Patient Time: Total time managing care of this patient today __35__ minutes.
--- NOTE | 2023-12-31 14:17 | PC.NURSE ---
Addendum entered by SHAREE Minaya 12/31/23 15:52: Paient scored 27 out of 30 , calculation was misread. Original Note: PT completed a [place] Cognitive Assessment with greeting card writer. Pt scored 24 out of 30 indicating a mild cognitive impairment.
[2023-12-31 20:00] VITALS: BP 119/73; PULSE 92; RESP 16; TEMP 36.7; O2SAT 95
[2023-12-31] MEDS: OLANZapine 5 MG TABLET PO (22:17)
[2023-12-31] MEDS: Throat Lozenge, Medicated LOZENGE 1 LOZENGE MUCOUS MEM (22:21)
[2024-01-01] MEDS: Nicotine Polacrilex 2 MG GUM BUCCAL ×4 (06:57→18:55)
[2024-01-01 07:49] VITALS: BP 111/69; PULSE 85; RESP 16; TEMP 36.9; O2SAT 93
--- NOTE | 2024-01-01 13:14 | P.PNPSI_ITS ---
Subjective Subjective Date of Service: 01/01/24 Reason For Visit: psychosis Interim History: calm, cooperative. pleasant, receptive. states he was unable to glean any sound bites of use from his recorder yesterday. he believes the relevant information is there, but he just needs to remove the background noise. discusss side effects of medication, reporting some increased drooling, slowed thoughts. amenable to increase zyprexa to 7.5 mg as of tonight. per staff, no dep/anx. no AVH. no SI/HI. taking zyprexa. slept 7 hours. Mental Status Exam Mental Status Exam Narrative: adequately dressed and groomed. cooperative, pleasant, polite. no PMA/PMR. speech nml rate, incr amount, nml loudness, latency, nml prosody. thoughts linear and logical. affect full range, flexible, normo-intense, non-labile. mood not assessed. no SI/SIBI/HI/VH expressed. endorses h/o AH, denying any since admission to the hospital. Diagnostics Vital Signs (24Hr): Vital Signs - 24 hr 12/31/23 20:00 01/01/24 07:49 Temperature 98.0 F 98.4 F Pulse Rate 92 85 Respiratory Rate 16 16 Blood Pressure 119/73 111/69 Pulse Oximetry 95 93 Oxygen Delivery Method Room Air Room Air BMI result Body Mass Index 23.4 Labs 12/18/23 15:27 12/18/23 15:27 Labs: Laboratory Results - last 48 hr 12/27/23 14:12 SILVIO Screen NEGATIVE SILVIO Titer TNP SILVIO Titer 2 TNP SILVIO Titer 3 TNP SILVIO Pattern TNP SILVIO Pattern 2 TNP SILVIO Pattern 3 TNP Imaging Radiology Impressions: ITS Impressions Brain MRI 12/29/23 11:30 IMPRESSION: No acute intracranial findings. There is global cerebral volume loss without mesial temporal lobe predominance and there is mild chronic microangiopathy. Once the neuro quantitative data is postprocessed, an addendum will be made. Medications Medications Current Medications Acetaminophen (Acetaminophen 325 Mg Tablet) 650 mg PO Q6H PRN PRN Reason: Headache/Pain Mild Scale (1-3) Al Hydroxide/Mg Hydroxide (Magnesium Hydrox/Alum Hydrox 30 Ml Oral.Susp) 30 ml PO Q6H PRN PRN Reason: Heartburn/Nausea Benzocaine (Throat Lozenge, Medicated Lozenge) 1 lozenge MUCOUS MEM Q1H PRN PRN Reason: dry mouth Last Admin: 12/31/23 22:21 Dose: 1 lozenge Hydroxyzine HCl (Hydroxyzine Hcl 25 Mg Tablet) 25 mg PO Q6H PRN PRN Reason: Anxiety Magnesium Hydroxide (Milk Of Magnesia 30 Ml Oral.Susp) 30 ml PO DAILY PRN PRN Reason: Constipation Nicotine Polacrilex (Nicotine Polacrilex 2 Mg Gum) 2 mg BUCCAL Q1H PRN PRN Reason: Nicotine Cravings Last Admin: 01/01/24 12:23 Dose: 2 mg Olanzapine (Olanzapine 7.5 Mg Tablet) 7.5 mg PO BEDTIME LARRY Trazodone HCl (Trazodone Hcl 50 Mg Tablet) 50 mg PO BEDTIME MRX1 PRN PRN Reason: Insomnia Allergies Allergies Allergy/AdvReac Type Severity Reaction Status Date / Time No Known Allergies Allergy Verified 12/18/23 15:02 Assessment & Plan Assessment & Plan (1) Paranoid delusion: Status: Acute Code(s): 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 collect collateral. w/u medical etiologies for late change in mental status on , up next . will likely file due to recent h/o physical aggression and threatening behavior. 12/19: encouraged again to take medication. delusions explored in more detail, making statement suggestive of AH, which would remove delusional disorder from the differential and leave a psychotic disorder as diagnosis. legal circumstance reviewd, horne warning given. continue current mgmt. 12/20: Declining medications. Continue plan per primary team. 12/21: continue current management and treatment plan. 12/22: continue current management and treatment plan. 12/23: reporting more detailed h/o AH in addition to delusions, making psychotic D/O likely over delusional D/O. b up tomorrow. 12/24: filed for commitment. no change in presentation. no concerning behaviors inpatient. continue to offer HS zyprexa. 12/25: took zyprexa 5 last night for the first time. no change in presentation. continue current mgmt. 12/26: zyprexa again last night. no change in presentation. CMP, CBC, TSH, B12, folate unremarkable. will check ESR, CRP, HIV, RPR, SILVIO, HbA1C, MRI brain to r/o other medical causes of psychosis. 12/29/2023: No changes to current treatment plan 12/29: medical w/u remains negative. SILVIO pending, but nml ESR and CRP make auto- immune disease unlikely. 12/30: MoCA 30 (lost 1 point in trail making, 2 points in recall). SILVIO negative. due to electric shock sensations in toes, T/C neuropathy and neuro consult for unknown neurodegenerative illness. continues to tolerate zyprexa 5 mg QHS. hearing 01/13. 12/31: agreeable to increase zyprexa dosing to 7.5 mg QHS. Reason for continued inpatient stay Substantial Risk for: harm to self, harm to others and inability to function Time Spent With Patient Time: Total time managing care of this patient today __35__ minutes.
[2024-01-01] MEDS: Throat Lozenge, Medicated LOZENGE 1 LOZENGE MUCOUS MEM (14:50)
[2024-01-01 20:00] VITALS: BP 115/71; PULSE 102; RESP 16; TEMP 36.9; O2SAT 95
[2024-01-01] MEDS: OLANZapine 7.5 MG TABLET PO (21:42)
[2024-01-02 07:00] VITALS: BMI 24.0
[2024-01-02 07:42] VITALS: BP 118/61; PULSE 83; RESP 18; TEMP 36.8; O2SAT 94
[2024-01-02] MEDS: Nicotine Polacrilex 2 MG GUM BUCCAL ×4 (07:59→20:29)
--- NOTE | 2024-01-02 12:14 | P.PNPSI_ITS ---
Subjective Subjective Date of Service: 01/02/24 Reason For Visit: psychosis Subjective Notes: Section 7 Interim History: pt calm not overly agitated focused preoccupation with police landlords protecting drug dealing and sending micowaves into his body and needing to protect himself with water or metal. denies current attack on himself inpt but feels they are trying to shut him up marked lack of insight continues no change with olanzapine 7.5 Mental Status Exam Mental Status Exam Narrative: adequately dressed and groomed. cooperative, pleasant, polite. no PMA/PMR. speech nml rate, incr amount, nml loudness, latency, nml prosody. thoughts linear but preoccupied with the thought that on 2 different occasions he was being tormented with some device possibly microwaves and required to be defended against which she tried with water and metal. He remains quite convinced that he was being attacked trying to shut him up regarding drug dealing perhaps the [employer] police and landlords were involved. affect full range, flexible, normo- intense, non-labile. mood not assessed. no SI/SIBI/HI/VH expressed. endorses h/o AH, denying any since admission to the hospital marked lack of insight impulse control adequate in this setting can not see why his behavior prior to admission might have been perceived as threatening frightening to others around him. Diagnostics Vital Signs (24Hr): Vital Signs - 24 hr 01/01/24 20:00 01/02/24 07:42 Temperature 98.4 F 98.2 F Pulse Rate 102 H 83 Respiratory Rate 16 18 Blood Pressure 115/71 118/61 Pulse Oximetry 95 94 Oxygen Delivery Method Room Air Room Air BMI result Body Mass Index 24.0 Labs 12/18/23 15:27 12/18/23 15:27 Imaging Radiology Impressions: ITS Impressions Brain MRI 12/29/23 11:30 IMPRESSION: No acute intracranial findings. There is global cerebral volume loss without mesial temporal lobe predominance and there is mild chronic microangiopathy. Once the neuro quantitative data is postprocessed, an addendum will be made. Medications Medications Current Medications Acetaminophen (Acetaminophen 325 Mg Tablet) 650 mg PO Q6H PRN PRN Reason: Headache/Pain Mild Scale (1-3) Al Hydroxide/Mg Hydroxide (Magnesium Hydrox/Alum Hydrox 30 Ml Oral.Susp) 30 ml PO Q6H PRN PRN Reason: Heartburn/Nausea Benzocaine (Throat Lozenge, Medicated Lozenge) 1 lozenge MUCOUS MEM Q1H PRN PRN Reason: dry mouth Last Admin: 01/01/24 14:50 Dose: 1 lozenge Hydroxyzine HCl (Hydroxyzine Hcl 25 Mg Tablet) 25 mg PO Q6H PRN PRN Reason: Anxiety Magnesium Hydroxide (Milk Of Magnesia 30 Ml Oral.Susp) 30 ml PO DAILY PRN PRN Reason: Constipation Nicotine Polacrilex (Nicotine Polacrilex 2 Mg Gum) 2 mg BUCCAL Q1H PRN PRN Reason: Nicotine Cravings Last Admin: 01/02/24 07:59 Dose: 2 mg Olanzapine (Olanzapine 7.5 Mg Tablet) 7.5 mg PO BEDTIME LARRY Last Admin: 01/01/24 21:42 Dose: 7.5 mg Trazodone HCl (Trazodone Hcl 50 Mg Tablet) 50 mg PO BEDTIME MRX1 PRN PRN Reason: Insomnia Allergies Allergies Allergy/AdvReac Type Severity Reaction Status Date / Time No Known Allergies Allergy Verified 12/18/23 15:02 Assessment & Plan Assessment & Plan (1) Paranoid delusion: Status: Acute Code(s): 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 collect collateral. w/u medical etiologies for late change in mental status on , up next . will likely file due to recent h/o physical aggression and threatening behavior. 12/19: encouraged again to take medication. delusions explored in more detail, making statement suggestive of AH, which would remove delusional disorder from the differential and leave a psychotic disorder as diagnosis. legal circumstance reviewd, horne warning given. continue current mgmt. 12/20: Declining medications. Continue plan per primary team. 12/21: continue current management and treatment plan. 12/22: continue current management and treatment plan. 12/23: reporting more detailed h/o AH in addition to delusions, making psychotic D/O likely over delusional D/O. 12b up tomorrow. 12/24: filed for commitment. no change in presentation. no concerning behaviors inpatient. continue to offer HS zyprexa. 12/25: took zyprexa 5 last night for the first time. no change in presentation. continue current mgmt. 12/26: zyprexa again last night. no change in presentation. CMP, CBC, TSH, B12, folate unremarkable. will check ESR, CRP, HIV, RPR, SILVIO, HbA1C, MRI brain to r/o other medical causes of psychosis. 12/29/2023: No changes to current treatment plan 12/29: medical w/u remains negative. SILVIO pending, but nml ESR and CRP make auto- immune disease unlikely. 12/30: MoCA (lost 1 point in trail making, 2 points in recall). SILVIO negative. due to electric shock sensations in toes, T/C neuropathy and neuro consult for unknown neurodegenerative illness. continues to tolerate zyprexa 5 mg QHS. hearing 01/13. 12/31: agreeable to increase zyprexa dosing to 7.5 mg QHS. 01/02/24 Continue olanzapine patient remains with fixed delusional beliefs no insight into bizarre behavior prior to admission and how his behavior could have been perceived as threatening reportedly video recording people and children without permission. No gross organic cause noted labs and imaging reviewed might benefit from alternative such as Risperdal. Volume loss noted in brain neuro quant which was reportedly ordered not reported Reason for continued inpatient stay Substantial Risk for: harm to others, inability to function and rapid decompensation Time Spent With Patient Time: Total time managing care of this patient today ____ minutes.
[2024-01-02 20:00] VITALS: BP 146/71; PULSE 108; RESP 18; O2SAT 94
[2024-01-02] MEDS: OLANZapine 7.5 MG TABLET PO (20:28)
[2024-01-03] MEDS: Nicotine Polacrilex 2 MG GUM BUCCAL ×4 (06:43→18:59)
[2024-01-03 07:56] VITALS: BP 135/77; PULSE 97; RESP 16; TEMP 36.3; O2SAT 93
--- NOTE | 2024-01-03 15:47 | P.PNPSI_ITS ---
Subjective Subjective Date of Service: 01/03/24 Reason For Visit: psychosis Interim History: calm, cooperative, verbose. mildly paranoid re bhaskar-on on the unit, paranoid delusions re circumstances at his apartment. declines to switch to risperidone. amenable to neuro consult. per staff, some dep/anx. delusions. pleasant, cooperative. taking meds. slept 5-7 hours. Mental Status Exam Mental Status Exam Narrative: adequately dressed and groomed. cooperative, pleasant, polite. no PMA/PMR. speech nml rate, incr amount, nml loudness, latency, nml prosody. thoughts linear and logical. affect full range, flexible, normo-intense, non-labile. mood not assessed. no SI/SIBI/HI/VH expressed. endorses h/o AH, denying any since admission to the hospital. Diagnostics Vital Signs (24Hr): Vital Signs - 24 hr 01/02/24 20:00 01/03/24 07:56 Temperature 97.3 F Pulse Rate 108 H 97 Respiratory Rate 18 16 Blood Pressure 146/71 H 135/77 Pulse Oximetry 94 93 Oxygen Delivery Method Room Air Room Air BMI result Body Mass Index 24.0 Labs 12/18/23 15:27 12/18/23 15:27 Imaging Radiology Impressions: ITS Impressions Brain MRI 12/29/23 11:30 IMPRESSION: No acute intracranial findings. There is global cerebral volume loss without mesial temporal lobe predominance and there is mild chronic microangiopathy. Once the neuro quantitative data is postprocessed, an addendum will be made. Medications Medications Current Medications Acetaminophen (Acetaminophen 325 Mg Tablet) 650 mg PO Q6H PRN PRN Reason: Headache/Pain Mild Scale (1-3) Al Hydroxide/Mg Hydroxide (Magnesium Hydrox/Alum Hydrox 30 Ml Oral.Susp) 30 ml PO Q6H PRN PRN Reason: Heartburn/Nausea Benzocaine (Throat Lozenge, Medicated Lozenge) 1 lozenge MUCOUS MEM Q1H PRN PRN Reason: dry mouth Last Admin: 01/01/24 14:50 Dose: 1 lozenge Hydroxyzine HCl (Hydroxyzine Hcl 25 Mg Tablet) 25 mg PO Q6H PRN PRN Reason: Anxiety Magnesium Hydroxide (Milk Of Magnesia 30 Ml Oral.Susp) 30 ml PO DAILY PRN PRN Reason: Constipation Nicotine Polacrilex (Nicotine Polacrilex 2 Mg Gum) 2 mg BUCCAL Q1H PRN PRN Reason: Nicotine Cravings Last Admin: 01/03/24 13:51 Dose: 2 mg Olanzapine (Olanzapine 7.5 Mg Tablet) 7.5 mg PO BEDTIME LARRY Last Admin: 01/02/24 20:28 Dose: 7.5 mg Trazodone HCl (Trazodone Hcl 50 Mg Tablet) 50 mg PO BEDTIME MRX1 PRN PRN Reason: Insomnia Allergies Allergies Allergy/AdvReac Type Severity Reaction Status Date / Time No Known Allergies Allergy Verified 12/18/23 15:02 Assessment & Plan Assessment & Plan (1) Paranoid delusion: Status: Acute Code(s): 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 collect collateral. w/u medical etiologies for late change in mental status on , up next . will likely file due to recent h/o physical aggression and threatening behavior. 12/19: encouraged again to take medication. delusions explored in more detail, making statement suggestive of AH, which would remove delusional disorder from the differential and leave a psychotic disorder as diagnosis. legal circumstance reviewd, horne warning given. continue current mgmt. 12/20: Declining medications. Continue plan per primary team. 12/21: continue current management and treatment plan. 12/22: continue current management and treatment plan. 12/23: reporting more detailed h/o AH in addition to delusions, making psychotic D/O likely over delusional D/O. b up tomorrow. 12/24: filed for commitment. no change in presentation. no concerning behaviors inpatient. continue to offer HS zyprexa. 12/25: took zyprexa 5 last night for the first time. no change in presentation. continue current mgmt. 12/26: zyprexa again last night. no change in presentation. CMP, CBC, TSH, B12, folate unremarkable. will check ESR, CRP, HIV, RPR, SILVIO, HbA1C, MRI brain to r/o other medical causes of psychosis. 12/29/2023: No changes to current treatment plan 12/29: medical w/u remains negative. SILVIO pending, but nml ESR and CRP make auto- immune disease unlikely. 12/30: MoCA (lost 1 point in trail making, 2 points in recall). SILVIO negative. due to electric shock sensations in toes, T/C neuropathy and neuro consult for unknown neurodegenerative illness. continues to tolerate zyprexa 5 mg QHS. hearing 01/13. 12/31: agreeable to increase zyprexa dosing to 7.5 mg QHS. 01/02/24 Continue olanzapine patient remains with fixed delusional beliefs no insight into bizarre behavior prior to admission and how his behavior could have been perceived as threatening reportedly video recording people and children without permission. No gross organic cause noted labs and imaging reviewed might benefit from alternative such as Risperdal. Volume loss noted in brain neuro quant which was reportedly ordered not reported 01/02: pt declines switch to risperidone. neuro consult ordered due to unusual presentation coupled with motor and sensory complaints. otherwise continue current mgmt. Reason for continued inpatient stay Substantial Risk for: harm to self, harm to others and inability to function Time Spent With Patient Time: Total time managing care of this patient today __35__ minutes.
[2024-01-03 20:20] VITALS: BP 120/80; PULSE 102; RESP 16; TEMP 37.1; O2SAT 96
[2024-01-03] MEDS: OLANZapine 7.5 MG TABLET PO (22:10)
[2024-01-04] MEDS: Nicotine Polacrilex 2 MG GUM BUCCAL ×4 (07:30→21:31)
[2024-01-04 07:33] VITALS: BP 140/76; PULSE 84; RESP 16; TEMP 36.4; O2SAT 95
--- NOTE | 2024-01-04 16:14 | P.PNPSI_ITS ---
Subjective Subjective Date of Service: 01/04/24 Reason For Visit: psychosis Interim History: no change in presentation, aside from appearing a bit tired. agreeable to decrease zyprexa back to 5 mg QHS. per staff, pleasant. talking about a mind control device being used on him at his apartment. slept 7 hours. Mental Status Exam Mental Status Exam Narrative: adequately dressed and groomed. cooperative, pleasant, polite. no PMA/PMR. speech nml rate, incr amount, nml loudness, latency, nml prosody. thoughts linear and logical. affect full range, flexible, normo-intense, non-labile. mood not assessed. no SI/SIBI/HI/VH expressed. endorses h/o AH, denying any since admission to the hospital. Diagnostics Vital Signs (24Hr): Vital Signs - 24 hr 01/03/24 20:20 01/04/24 07:33 Temperature 98.7 F 97.5 F Pulse Rate 102 H 84 Respiratory Rate 16 16 Blood Pressure 120/80 140/76 H Pulse Oximetry 96 95 Oxygen Delivery Method Room Air Room Air BMI result Body Mass Index 24.0 Labs 12/18/23 15:27 12/18/23 15:27 Imaging Radiology Impressions: ITS Impressions Brain MRI 12/29/23 11:30 IMPRESSION: No acute intracranial findings. There is global cerebral volume loss without mesial temporal lobe predominance and there is mild chronic microangiopathy. Once the neuro quantitative data is postprocessed, an addendum will be made. Medications Medications Current Medications Acetaminophen (Acetaminophen 325 Mg Tablet) 650 mg PO Q6H PRN PRN Reason: Headache/Pain Mild Scale (1-3) Al Hydroxide/Mg Hydroxide (Magnesium Hydrox/Alum Hydrox 30 Ml Oral.Susp) 30 ml PO Q6H PRN PRN Reason: Heartburn/Nausea Benzocaine (Throat Lozenge, Medicated Lozenge) 1 lozenge MUCOUS MEM Q1H PRN PRN Reason: dry mouth Last Admin: 01/01/24 14:50 Dose: 1 lozenge Hydroxyzine HCl (Hydroxyzine Hcl 25 Mg Tablet) 25 mg PO Q6H PRN PRN Reason: Anxiety Magnesium Hydroxide (Milk Of Magnesia 30 Ml Oral.Susp) 30 ml PO DAILY PRN PRN Reason: Constipation Nicotine Polacrilex (Nicotine Polacrilex 2 Mg Gum) 2 mg BUCCAL Q1H PRN PRN Reason: Nicotine Cravings Last Admin: 01/04/24 13:16 Dose: 2 mg Olanzapine (Olanzapine 5 Mg Tablet) 5 mg PO BEDTIME LARRY Trazodone HCl (Trazodone Hcl 50 Mg Tablet) 50 mg PO BEDTIME MRX1 PRN PRN Reason: Insomnia Allergies Allergies Allergy/AdvReac Type Severity Reaction Status Date / Time No Known Allergies Allergy Verified 12/18/23 15:02 Assessment & Plan Assessment & Plan (1) Paranoid delusion: Status: Acute Code(s): 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 collect collateral. w/u medical etiologies for late change in mental status on , up next . will likely file due to recent h/o physical aggression and threatening behavior. 12/19: encouraged again to take medication. delusions explored in more detail, making statement suggestive of AH, which would remove delusional disorder from the differential and leave a psychotic disorder as diagnosis. legal circumstance reviewd, horne warning given. continue current mgmt. 12/20: Declining medications. Continue plan per primary team. 12/21: continue current management and treatment plan. 12/22: continue current management and treatment plan. 12/23: reporting more detailed h/o AH in addition to delusions, making psychotic D/O likely over delusional D/O. up tomorrow. 12/24: filed for commitment. no change in presentation. no concerning behaviors inpatient. continue to offer HS zyprexa. 12/25: took zyprexa 5 last night for the first time. no change in presentation. continue current mgmt. 12/26: zyprexa again last night. no change in presentation. CMP, CBC, TSH, B12, folate unremarkable. will check ESR, CRP, HIV, RPR, SILVIO, HbA1C, MRI brain to r/o other medical causes of psychosis. 12/29/2023: No changes to current treatment plan 12/29: medical w/u remains negative. SILVIO pending, but nml ESR and CRP make auto- immune disease unlikely. 12/30: MoCA (lost 1 point in trail making, 2 points in recall). SILVIO negative. due to electric shock sensations in toes, T/C neuropathy and neuro consult for unknown neurodegenerative illness. continues to tolerate zyprexa 5 mg QHS. hearing 01/13. 12/31: agreeable to increase zyprexa dosing to 7.5 mg QHS. 01/02/24 Continue olanzapine patient remains with fixed delusional beliefs no insight into bizarre behavior prior to admission and how his behavior could have been perceived as threatening reportedly video recording people and children without permission. No gross organic cause noted labs and imaging reviewed might benefit from alternative such as Risperdal. Volume loss noted in brain neuro quant which was reportedly ordered not reported 01/02: pt declines switch to risperidone. neuro consult ordered due to unusual presentation coupled with motor and sensory complaints. otherwise continue current mgmt. 01/03: c/o feeling tired in the morning, appears tired. decrease zyprexa back to 5 mg QHS. talking about a mind control device being used on him at his apartment. Reason for continued inpatient stay Substantial Risk for: harm to others Time Spent With Patient Time: Total time managing care of this patient today ____ minutes.
--- NOTE | 2024-01-04 18:41 | P.CNNE_ITS ---
History of Present Illness Data of Consult Service Date: 01/04/24 Primary Care Provider: Joe Reyna MD [facility] Reason for consult: Paresthesia around the mouth and some difficulty talking transiently This is 73-year-old man with a history of for psychosis violent behavior, delusions and paranoia who was evaluated because he complained of some paresthesia around the mouth and he thought difficulty speaking after taking a new medication that was prescribed. On subsequent dosages on a daily basis. Those symptoms have gone away and he feels back to his baseline. He has no other complaints. MRI of the brain is appropriate for age. [facility] Past Medical History Medical History Adjustment reaction to chronic stress Unspecified psychosis Paranoid Hx of cataract Smoker Left inguinal hernia Surgical History Surgical History History of hernia repair Social History Social History Household Members: None Housing: Apartment Do you presently have visiting nurse or other home services: No Alcohol intake: current Alcohol intake frequency: does not drink Patient Tobacco Use Status: Never used Tobacco Tobacco use type: Cigarette Cigarette Packs Per Day: 0.5 Cigarettes Per Day: 10.0 Years Smoked: 40 Smoked in Last 30 Days: Yes e-Cigarette/Vaping Use: Currently Using Patient Interested in Nicotine Replacement: Yes (gum) Patient Given Instructions on How to Stop Smoking: Yes Date Education Initiated: 12/19/23 Second Hand Smoke Exposure: No Use of substances other than those prescribed or required for medical reasons: No Currently Displaying Signs/Symptoms of Drug Intoxication Withdrawal: No Have you been hit, kicked, punched, or otherwise hurt by someone within the past year? If so, by whom?: No Do you feel safe in your current relationship?: No Current Relationship Is there a partner from a previous relationship who is making you feel unsafe now?: No Are you made to feel afraid or neglected: No Advance Directives: No Advance Directives Information Provided: No Do you have thoughts of harming others: None Do you have a plan to hurt others: No Plan Recently lost weight without trying: No Nutrition Risks: No Nutritional Risk Poor oral hygiene: No service: No Current occupational status: retired Current occupational exposures/hazards: No Sexual orientation: Straight/Heterosexual Cognitive needs: No Hearing needs: No Vision needs: Yes Meds Allergies Allergy/AdvReac Type Severity Reaction Status Date / Time No Known Allergies Allergy Verified 12/18/23 15:02 Active Medications: Current Medications Acetaminophen (Acetaminophen 325 Mg Tablet) 650 mg PO Q6H PRN PRN Reason: Headache/Pain Mild Scale (1-3) Al Hydroxide/Mg Hydroxide (Magnesium Hydrox/Alum Hydrox 30 Ml Oral.Susp) 30 ml PO Q6H PRN PRN Reason: Heartburn/Nausea Benzocaine (Throat Lozenge, Medicated Lozenge) 1 lozenge MUCOUS MEM Q1H PRN PRN Reason: dry mouth Last Admin: 01/01/24 14:50 Dose: 1 lozenge Hydroxyzine HCl (Hydroxyzine Hcl 25 Mg Tablet) 25 mg PO Q6H PRN PRN Reason: Anxiety Magnesium Hydroxide (Milk Of Magnesia 30 Ml Oral.Susp) 30 ml PO DAILY PRN PRN Reason: Constipation Nicotine Polacrilex (Nicotine Polacrilex 2 Mg Gum) 2 mg BUCCAL Q1H PRN PRN Reason: Nicotine Cravings Last Admin: 01/04/24 16:22 Dose: 2 mg Olanzapine (Olanzapine 5 Mg Tablet) 5 mg PO BEDTIME LARRY Trazodone HCl (Trazodone Hcl 50 Mg Tablet) 50 mg PO BEDTIME MRX1 PRN PRN Reason: Insomnia Home Medications ?Medication ?Instructions ?Recorded ?Confirmed ?Last Taken ?Type No Known Home Meds 03/18/23 12/18/23 Unknown History Physical Exam 2 Vital Signs: Vital Signs: Last Vital Signs Temp 97.5 F 01/04/24 07:33 Pulse 84 01/04/24 07:33 Resp 16 01/04/24 07:33 BP 140/76 H 01/04/24 07:33 Pulse Ox 95 01/04/24 07:33 O2 Del Method Room Air 01/04/24 07:33 BMI result Body Mass Index 24.0 Neuro: Other: Alert and oriented. He does not exhibit paranoid behavior or hallucinations at this time. He is quite to cooperative and pleasant. Nonfocal examination. Results Labs 12/18/23 15:27 12/18/23 15:27 Assessment and Plan (1) Paresthesia: Status: Acute The symptoms have resolved. His facial paresthesia were attributed by him to the new medication and with subsequent dosages he feels no more reactions. He has no other complaints. His neurological examination and MRI of the brain are normal. He does not need any further neurological workup. Procedures Date of Service Date of Service: 01/04/24
[2024-01-04 19:40] VITALS: BP 158/80; PULSE 104; RESP 18; TEMP 36.8; O2SAT 94
[2024-01-04] MEDS: OLANZapine 5 MG TABLET PO (21:31)
[2024-01-05 07:40] VITALS: BP 117/65; PULSE 87; RESP 16; TEMP 36.8; O2SAT 94
[2024-01-05] MEDS: Nicotine Polacrilex 2 MG GUM BUCCAL ×4 (08:08→21:12)
--- NOTE | 2024-01-05 14:56 | P.PNPSI_ITS ---
Subjective Subjective Date of Service: 01/05/24 Reason For Visit: psychosis Interim History: less groggy today, no drooling, back to feeling fine. per staff, some groups. taking meds. pacing. slept well. needs podiatry for split toenail. Mental Status Exam Mental Status Exam Narrative: adequately dressed and groomed. cooperative, pleasant, polite. no PMA/PMR. speech nml rate, incr amount, nml loudness, latency, nml prosody. thoughts linear and logical. affect full range, flexible, normo-intense, non-labile. mood not assessed. no SI/SIBI/HI/VH expressed. endorses h/o AH, denying any since admission to the hospital. Diagnostics Vital Signs (24Hr): Vital Signs - 24 hr 01/04/24 19:40 01/05/24 07:40 Temperature 98.2 F 98.3 F Pulse Rate 104 H 87 Respiratory Rate 18 16 Blood Pressure 158/80 H 117/65 Pulse Oximetry 94 94 Oxygen Delivery Method Room Air Room Air BMI result Body Mass Index 24.0 Labs 12/18/23 15:27 12/18/23 15:27 Imaging Radiology Impressions: ITS Impressions Brain MRI 12/29/23 11:30 IMPRESSION: No acute intracranial findings. There is global cerebral volume loss without mesial temporal lobe predominance and there is mild chronic microangiopathy. Once the neuro quantitative data is postprocessed, an addendum will be made. Medications Medications Current Medications Acetaminophen (Acetaminophen 325 Mg Tablet) 650 mg PO Q6H PRN PRN Reason: Headache/Pain Mild Scale (1-3) Al Hydroxide/Mg Hydroxide (Magnesium Hydrox/Alum Hydrox 30 Ml Oral.Susp) 30 ml PO Q6H PRN PRN Reason: Heartburn/Nausea Benzocaine (Throat Lozenge, Medicated Lozenge) 1 lozenge MUCOUS MEM Q1H PRN PRN Reason: dry mouth Last Admin: 01/01/24 14:50 Dose: 1 lozenge Hydroxyzine HCl (Hydroxyzine Hcl 25 Mg Tablet) 25 mg PO Q6H PRN PRN Reason: Anxiety Magnesium Hydroxide (Milk Of Magnesia 30 Ml Oral.Susp) 30 ml PO DAILY PRN PRN Reason: Constipation Nicotine Polacrilex (Nicotine Polacrilex 2 Mg Gum) 2 mg BUCCAL Q1H PRN PRN Reason: Nicotine Cravings Last Admin: 01/05/24 14:28 Dose: 2 mg Olanzapine (Olanzapine 5 Mg Tablet) 5 mg PO BEDTIME LARRY Last Admin: 01/04/24 21:31 Dose: 5 mg Trazodone HCl (Trazodone Hcl 50 Mg Tablet) 50 mg PO BEDTIME MRX1 PRN PRN Reason: Insomnia Allergies Allergies Allergy/AdvReac Type Severity Reaction Status Date / Time No Known Allergies Allergy Verified 12/18/23 15:02 Assessment & Plan Assessment & Plan (1) Paresthesia: Status: Acute Code(s): R20.2 - Paresthesia of skin (2) Paranoid delusion: Status: Acute Code(s): 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 collect collateral. w/u medical etiologies for late change in mental status on , up next . will likely file due to recent h/o physical aggression and threatening behavior. 12/19: encouraged again to take medication. delusions explored in more detail, making statement suggestive of AH, which would remove delusional disorder from the differential and leave a psychotic disorder as diagnosis. legal circumstance reviewd, horne warning given. continue current mgmt. 12/20: Declining medications. Continue plan per primary team. 12/21: continue current management and treatment plan. 12/22: continue current management and treatment plan. 12/23: reporting more detailed h/o AH in addition to delusions, making psychotic D/O likely over delusional D/O. up tomorrow. 12/24: filed for commitment. no change in presentation. no concerning behaviors inpatient. continue to offer HS zyprexa. 12/25: took zyprexa 5 last night for the first time. no change in presentation. continue current mgmt. 12/26: zyprexa again last night. no change in presentation. CMP, CBC, TSH, B12, folate unremarkable. will check ESR, CRP, HIV, RPR, SILVIO, HbA1C, MRI brain to r/o other medical causes of psychosis. 12/29/2023: No changes to current treatment plan 12/29: medical w/u remains negative. SILVIO pending, but nml ESR and CRP make auto- immune disease unlikely. 12/30: MoCA 27/30 (lost 1 point in trail making, 2 points in recall). SILVIO negative. due to electric shock sensations in toes, T/C neuropathy and neuro consult for unknown neurodegenerative illness. continues to tolerate zyprexa 5 mg QHS. hearing 01/13. 12/31: agreeable to increase zyprexa dosing to 7.5 mg QHS. 01/02/24 Continue olanzapine patient remains with fixed delusional beliefs no insight into bizarre behavior prior to admission and how his behavior could have been perceived as threatening reportedly video recording people and children without permission. No gross organic cause noted labs and imaging reviewed might benefit from alternative such as Risperdal. Volume loss noted in brain neuro quant which was reportedly ordered not reported 01/02: pt declines switch to risperidone. neuro consult ordered due to unusual presentation coupled with motor and sensory complaints. otherwise continue current mgmt. 01/03: c/o feeling tired in the morning, appears tired. decrease zyprexa back to 5 mg QHS. talking about a mind control device being used on him at his apartment. 01/04: neuro w/u without findings. feels better back on zyprexa 5 at HS (7.5 left him groggy and drooling). continue current mgmt. Reason for continued inpatient stay Substantial Risk for: harm to others and inability to function Time Spent With Patient Time: Total time managing care of this patient today ____ minutes.
[2024-01-05 19:16] VITALS: BP 143/73; PULSE 103; RESP 16; TEMP 36.6; O2SAT 95
[2024-01-05] MEDS: OLANZapine 5 MG TABLET PO (23:05)
[2024-01-06 08:00] VITALS: BP 121/75; PULSE 76; RESP 16; TEMP 36.4; O2SAT 93
[2024-01-06] MEDS: Nicotine Polacrilex 2 MG GUM BUCCAL ×6 (08:07→21:57)
--- NOTE | 2024-01-06 12:31 | P.PNPSI_ITS ---
Subjective Subjective Date of Service: 01/06/24 Reason For Visit: psychosis Interim History: calm, cooperative, pleasant. nothing new since yesterday. per staff, no dep/anx. bright, but withdrawn. some c/o drooling. slept about 7 hours. Mental Status Exam Mental Status Exam Narrative: adequately dressed and groomed. cooperative, pleasant, polite. no PMA/PMR. speech nml rate, incr amount, nml loudness, latency, nml prosody. thoughts linear and logical. affect full range, flexible, normo-intense, non-labile. mood not assessed. no SI/SIBI/HI/VH expressed. endorses h/o AH, denying any since admission to the hospital. Diagnostics Vital Signs (24Hr): Vital Signs - 24 hr 01/05/24 19:16 01/06/24 08:00 Temperature 98 F 97.6 F Pulse Rate 103 H 76 Respiratory Rate 16 16 Blood Pressure 143/73 H 121/75 Pulse Oximetry 95 93 Oxygen Delivery Method Room Air Room Air BMI result Body Mass Index 24.0 Labs 12/18/23 15:27 12/18/23 15:27 Imaging Radiology Impressions: ITS Impressions Brain MRI 12/29/23 11:30 IMPRESSION: No acute intracranial findings. There is global cerebral volume loss without mesial temporal lobe predominance and there is mild chronic microangiopathy. Once the neuro quantitative data is postprocessed, an addendum will be made. Medications Medications Current Medications Acetaminophen (Acetaminophen 325 Mg Tablet) 650 mg PO Q6H PRN PRN Reason: Headache/Pain Mild Scale (1-3) Al Hydroxide/Mg Hydroxide (Magnesium Hydrox/Alum Hydrox 30 Ml Oral.Susp) 30 ml PO Q6H PRN PRN Reason: Heartburn/Nausea Benzocaine (Throat Lozenge, Medicated Lozenge) 1 lozenge MUCOUS MEM Q1H PRN PRN Reason: dry mouth Last Admin: 01/01/24 14:50 Dose: 1 lozenge Hydroxyzine HCl (Hydroxyzine Hcl 25 Mg Tablet) 25 mg PO Q6H PRN PRN Reason: Anxiety Magnesium Hydroxide (Milk Of Magnesia 30 Ml Oral.Susp) 30 ml PO DAILY PRN PRN Reason: Constipation Nicotine Polacrilex (Nicotine Polacrilex 2 Mg Gum) 2 mg BUCCAL Q1H PRN PRN Reason: Nicotine Cravings Last Admin: 01/06/24 12:23 Dose: 2 mg Olanzapine (Olanzapine 5 Mg Tablet) 5 mg PO BEDTIME LARRY Last Admin: 01/05/24 23:05 Dose: 5 mg Trazodone HCl (Trazodone Hcl 50 Mg Tablet) 50 mg PO BEDTIME MRX1 PRN PRN Reason: Insomnia Allergies Allergies Allergy/AdvReac Type Severity Reaction Status Date / Time No Known Allergies Allergy Verified 12/18/23 15:02 Assessment & Plan Assessment & Plan (1) Paresthesia: Status: Acute Code(s): R20.2 - Paresthesia of skin (2) Paranoid delusion: Status: Acute Code(s): 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 collect collateral. w/u medical etiologies for late change in mental status on , up next . will likely file due to recent h/o physical aggression and threatening behavior. 12/19: encouraged again to take medication. delusions explored in more detail, making statement suggestive of AH, which would remove delusional disorder from the differential and leave a psychotic disorder as diagnosis. legal circumstance reviewd, horne warning given. continue current mgmt. 12/20: Declining medications. Continue plan per primary team. 12/21: continue current management and treatment plan. 12/22: continue current management and treatment plan. 12/23: reporting more detailed h/o AH in addition to delusions, making psychotic D/O likely over delusional D/O. 12b up tomorrow. 12/24: filed for commitment. no change in presentation. no concerning behaviors inpatient. continue to offer HS zyprexa. 12/25: took zyprexa 5 last night for the first time. no change in presentation. continue current mgmt. 12/26: zyprexa again last night. no change in presentation. CMP, CBC, TSH, B12, folate unremarkable. will check ESR, CRP, HIV, RPR, SILVIO, HbA1C, MRI brain to r/o other medical causes of psychosis. 12/29/2023: No changes to current treatment plan 12/29: medical w/u remains negative. SILVIO pending, but nml ESR and CRP make auto- immune disease unlikely. 12/30: MoCA 27/30 (lost 1 point in trail making, 2 points in recall). SILVIO negative. due to electric shock sensations in toes, T/C neuropathy and neuro consult for unknown neurodegenerative illness. continues to tolerate zyprexa 5 mg QHS. hearing 01/13. 12/31: agreeable to increase zyprexa dosing to 7.5 mg QHS. 01/02/24 Continue olanzapine patient remains with fixed delusional beliefs no insight into bizarre behavior prior to admission and how his behavior could have been perceived as threatening reportedly video recording people and children without permission. No gross organic cause noted labs and imaging reviewed might benefit from alternative such as Risperdal. Volume loss noted in brain neuro quant which was reportedly ordered not reported 01/02: pt declines switch to risperidone. neuro consult ordered due to unusual presentation coupled with motor and sensory complaints. otherwise continue current mgmt. 01/03: c/o feeling tired in the morning, appears tired. decrease zyprexa back to 5 mg QHS. talking about a mind control device being used on him at his apartment. 01/04: neuro w/u without findings. feels better back on zyprexa 5 at HS (7.5 left him groggy and drooling). continue current mgmt. 01/05: no change in presentation. continue current mgmt. Reason for continued inpatient stay Substantial Risk for: rapid decompensation Time Spent With Patient Time: Total time managing care of this patient today __25__ minutes.
[2024-01-06 20:00] VITALS: BP 130/77; PULSE 107; RESP 16; TEMP 36.5; O2SAT 96
[2024-01-06] MEDS: OLANZapine 5 MG TABLET PO (22:01)
[2024-01-07 07:25] VITALS: BP 130/60; PULSE 80; RESP 16; TEMP 36.8; O2SAT 94
[2024-01-07] MEDS: Nicotine Polacrilex 2 MG GUM BUCCAL ×5 (07:54→21:05)
--- NOTE | 2024-01-07 15:23 | P.PNPSI_ITS ---
Subjective Subjective Date of Service: 01/07/24 Reason For Visit: psychosis Subjective Notes: Section 7 Interim History: Reviewed with Dr. Swartz. Social with peers. Pt reports feeling worried about court ; pt stated, I'm doing okay. Sometimes I feel optimistic that court will go in my favor . he reports sleeping well. pt denies SI/HI/VH/AH. Medication Compliance: Yes Review of Systems Constitutional: Reports as per HPI Eyes: Reports as per HPI Reports as per HPI Cardiovascular: Reports as per HPI Respiratory: Reports as per HPI Gastrointestinal: Reports as per HPI Genitourinary: Reports as per HPI Musculoskeletal: Reports as per HPI Skin/Breast: Reports as per HPI Reports as per HPI Psychiatric: Reports as per HPI Endocrine: Reports as per HPI Hematologic/Lymphatic: Reports as per HPI Allergic/Immunologic: Reports as per HPI Mental Status Exam Mental Status Exam Narrative: Pt is alert and oriented; behavior is cooperative, friendly and calm; dressed in casual attire; mood is described as okay ; eye contact appropriate; Speech is normal rate, volume and not pressured; thought process is organized; Thought content is on court and discharge; denies SI/HI/VH/AH. Diagnostics Vital Signs (24Hr): Vital Signs - 24 hr 01/06/24 20:00 01/07/24 07:25 Temperature 97.7 F 98.2 F Pulse Rate 107 H 80 Respiratory Rate 16 16 Blood Pressure 130/77 130/60 Pulse Oximetry 96 94 Oxygen Delivery Method Room Air Room Air BMI result Body Mass Index 24.0 Labs 12/18/23 15:27 12/18/23 15:27 Imaging Radiology Impressions: ITS Impressions Brain MRI 12/29/23 11:30 IMPRESSION: No acute intracranial findings. There is global cerebral volume loss without mesial temporal lobe predominance and there is mild chronic microangiopathy. Once the neuro quantitative data is postprocessed, an addendum will be made. Medications Medications Current Medications Acetaminophen (Acetaminophen 325 Mg Tablet) 650 mg PO Q6H PRN PRN Reason: Headache/Pain Mild Scale (1-3) Al Hydroxide/Mg Hydroxide (Magnesium Hydrox/Alum Hydrox 30 Ml Oral.Susp) 30 ml PO Q6H PRN PRN Reason: Heartburn/Nausea Benzocaine (Throat Lozenge, Medicated Lozenge) 1 lozenge MUCOUS MEM Q1H PRN PRN Reason: dry mouth Last Admin: 01/01/24 14:50 Dose: 1 lozenge Hydroxyzine HCl (Hydroxyzine Hcl 25 Mg Tablet) 25 mg PO Q6H PRN PRN Reason: Anxiety Magnesium Hydroxide (Milk Of Magnesia 30 Ml Oral.Susp) 30 ml PO DAILY PRN PRN Reason: Constipation Nicotine Polacrilex (Nicotine Polacrilex 2 Mg Gum) 2 mg BUCCAL Q1H PRN PRN Reason: Nicotine Cravings Last Admin: 01/07/24 13:32 Dose: 2 mg Olanzapine (Olanzapine 5 Mg Tablet) 5 mg PO BEDTIME LARRY Last Admin: 01/06/24 22:01 Dose: 5 mg Trazodone HCl (Trazodone Hcl 50 Mg Tablet) 50 mg PO BEDTIME MRX1 PRN PRN Reason: Insomnia Allergies Allergies Allergy/AdvReac Type Severity Reaction Status Date / Time No Known Allergies Allergy Verified 12/18/23 15:02 Assessment & Plan Assessment & Plan (1) Paresthesia: Status: Acute Code(s): R20.2 - Paresthesia of skin (2) Paranoid delusion: Status: Acute Code(s): 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 collect collateral. w/u medical etiologies for late change in mental status on , up next . will likely file due to recent h/o physical aggression and threatening behavior. 12/19: encouraged again to take medication. delusions explored in more detail, making statement suggestive of AH, which would remove delusional disorder from the differential and leave a psychotic disorder as diagnosis. legal circumstance reviewd, horne warning given. continue current mgmt. 12/20: Declining medications. Continue plan per primary team. 12/21: continue current management and treatment plan. 12/22: continue current management and treatment plan. 12/23: reporting more detailed h/o AH in addition to delusions, making psychotic D/O likely over delusional D/O. b up tomorrow. 12/24: filed for commitment. no change in presentation. no concerning behaviors inpatient. continue to offer HS zyprexa. 12/25: took zyprexa 5 last night for the first time. no change in presentation. continue current mgmt. 12/26: zyprexa again last night. no change in presentation. CMP, CBC, TSH, B12, folate unremarkable. will check ESR, CRP, HIV, RPR, SILVIO, HbA1C, MRI brain to r/o other medical causes of psychosis. 12/29/2023: No changes to current treatment plan 12/29: medical w/u remains negative. SILVIO pending, but nml ESR and CRP make auto- immune disease unlikely. 12/30: MoCA 30 (lost 1 point in trail making, 2 points in recall). SILVIO negative. due to electric shock sensations in toes, T/C neuropathy and neuro consult for unknown neurodegenerative illness. continues to tolerate zyprexa 5 mg QHS. hearing 01/13. 12/31: agreeable to increase zyprexa dosing to 7.5 mg QHS. 01/02/24 Continue olanzapine patient remains with fixed delusional beliefs no insight into bizarre behavior prior to admission and how his behavior could have been perceived as threatening reportedly video recording people and children without permission. No gross organic cause noted labs and imaging reviewed might benefit from alternative such as Risperdal. Volume loss noted in brain neuro quant which was reportedly ordered not reported 01/02: pt declines switch to risperidone. neuro consult ordered due to unusual presentation coupled with motor and sensory complaints. otherwise continue current mgmt. 01/03: c/o feeling tired in the morning, appears tired. decrease zyprexa back to 5 mg QHS. talking about a mind control device being used on him at his apartment. 01/04: neuro w/u without findings. feels better back on zyprexa 5 at HS (7.5 left him groggy and drooling). continue current mgmt. 01/05: no change in presentation. continue current mgmt. 01/06: continue current tx plan. Patient educated on: diagnosis, medication risk/benefits and therapeutic strategies Informed Consent: understands Reason for continued inpatient stay Substantial Risk for: med/psych decompensation Time Spent With Patient Time: Total time managing care of this patient today _20___ minutes.
[2024-01-07 20:00] VITALS: BP 148/73; PULSE 93; RESP 16; TEMP 36.6; O2SAT 97
[2024-01-07 20:53] VITALS: BP 139/79
[2024-01-07] MEDS: OLANZapine 5 MG TABLET PO (21:05)
[2024-01-08 07:26] VITALS: BP 127/65; PULSE 86; RESP 14; TEMP 37.1; O2SAT 95
[2024-01-08] MEDS: Nicotine Polacrilex 2 MG GUM BUCCAL ×6 (07:27→22:00)
--- NOTE | 2024-01-08 13:04 | P.PNPSI_ITS ---
Subjective Subjective Date of Service: 01/08/24 Reason For Visit: psychosis Interim History: calm, cooperative. seen with MARLENY Don. discuss legal circumstance and tolerability of medication. per staff, taking meds, attending groups. ALANA scheduled for saturday. feeling calm, not social, pleasant. slept 8 hours. Mental Status Exam Mental Status Exam Narrative: adequately dressed and groomed. cooperative, pleasant, polite. no PMA/PMR. speech nml rate, amount, loudness, latency, prosody. thoughts linear and logical. affect full range, flexible, normo-intense, non-labile. mood not assessed. no SI/SIBI/HI/VH expressed. endorses h/o AH, denying any since admission to the hospital. Diagnostics Vital Signs (24Hr): Vital Signs - 24 hr 01/07/24 20:00 01/07/24 20:53 01/08/24 07:26 Temperature 97.9 F 98.7 F Pulse Rate 93 86 Respiratory Rate 16 14 Blood Pressure 148/73 H 139/79 127/65 Pulse Oximetry 97 95 Oxygen Delivery Method Room Air Room Air BMI result Body Mass Index 24.0 Labs 12/18/23 15:27 12/18/23 15:27 Imaging Radiology Impressions: ITS Impressions Brain MRI 12/29/23 11:30 IMPRESSION: No acute intracranial findings. There is global cerebral volume loss without mesial temporal lobe predominance and there is mild chronic microangiopathy. Once the neuro quantitative data is postprocessed, an addendum will be made. Medications Medications Current Medications Acetaminophen (Acetaminophen 325 Mg Tablet) 650 mg PO Q6H PRN PRN Reason: Headache/Pain Mild Scale (1-3) Al Hydroxide/Mg Hydroxide (Magnesium Hydrox/Alum Hydrox 30 Ml Oral.Susp) 30 ml PO Q6H PRN PRN Reason: Heartburn/Nausea Benzocaine (Throat Lozenge, Medicated Lozenge) 1 lozenge MUCOUS MEM Q1H PRN PRN Reason: dry mouth Last Admin: 01/01/24 14:50 Dose: 1 lozenge Hydroxyzine HCl (Hydroxyzine Hcl 25 Mg Tablet) 25 mg PO Q6H PRN PRN Reason: Anxiety Magnesium Hydroxide (Milk Of Magnesia 30 Ml Oral.Susp) 30 ml PO DAILY PRN PRN Reason: Constipation Nicotine Polacrilex (Nicotine Polacrilex 2 Mg Gum) 2 mg BUCCAL Q1H PRN PRN Reason: Nicotine Cravings Last Admin: 01/08/24 10:46 Dose: 2 mg Olanzapine (Olanzapine 5 Mg Tablet) 5 mg PO BEDTIME LARRY Last Admin: 01/07/24 21:05 Dose: 5 mg Trazodone HCl (Trazodone Hcl 50 Mg Tablet) 50 mg PO BEDTIME MRX1 PRN PRN Reason: Insomnia Allergies Allergies Allergy/AdvReac Type Severity Reaction Status Date / Time No Known Allergies Allergy Verified 12/18/23 15:02 Assessment & Plan Assessment & Plan (1) Paresthesia: Status: Acute Code(s): R20.2 - Paresthesia of skin (2) Paranoid delusion: Status: Acute Code(s): 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 collect collateral. w/u medical etiologies for late change in mental status on , up next . will likely file due to recent h/o physical aggression and threatening behavior. 12/19: encouraged again to take medication. delusions explored in more detail, making statement suggestive of AH, which would remove delusional disorder from the differential and leave a psychotic disorder as diagnosis. legal circumstance reviewd, horne warning given. continue current mgmt. 12/20: Declining medications. Continue plan per primary team. 12/21: continue current management and treatment plan. 12/22: continue current management and treatment plan. 12/23: reporting more detailed h/o AH in addition to delusions, making psychotic D/O likely over delusional D/O. up tomorrow. 12/24: filed for commitment. no change in presentation. no concerning behaviors inpatient. continue to offer HS zyprexa. 12/25: took zyprexa 5 last night for the first time. no change in presentation. continue current mgmt. 12/26: zyprexa again last night. no change in presentation. CMP, CBC, TSH, B12, folate unremarkable. will check ESR, CRP, HIV, RPR, SILVIO, HbA1C, MRI brain to r/o other medical causes of psychosis. 12/29/2023: No changes to current treatment plan 12/29: medical w/u remains negative. SILVIO pending, but nml ESR and CRP make auto- immune disease unlikely. 12/30: MoCA /30 (lost 1 point in trail making, 2 points in recall). SILVIO negative. due to electric shock sensations in toes, T/C neuropathy and neuro consult for unknown neurodegenerative illness. continues to tolerate zyprexa 5 mg QHS. hearing 01/13. 12/31: agreeable to increase zyprexa dosing to 7.5 mg QHS. 01/02/24 Continue olanzapine patient remains with fixed delusional beliefs no insight into bizarre behavior prior to admission and how his behavior could have been perceived as threatening reportedly video recording people and children without permission. No gross organic cause noted labs and imaging reviewed might benefit from alternative such as Risperdal. Volume loss noted in brain neuro quant which was reportedly ordered not reported 01/02: pt declines switch to risperidone. neuro consult ordered due to unusual presentation coupled with motor and sensory complaints. otherwise continue current mgmt. 01/03: c/o feeling tired in the morning, appears tired. decrease zyprexa back to 5 mg QHS. talking about a mind control device being used on him at his apartment. 01/04: neuro w/u without findings. feels better back on zyprexa 5 at HS (7.5 left him groggy and drooling). continue current mgmt. 01/05: no change in presentation. continue current mgmt. 01/06: continue current tx plan. 01/07: stable. continue current mgmt. Reason for continued inpatient stay Substantial Risk for: harm to self, harm to others, inability to function and rapid decompensation Time Spent With Patient Time: Total time managing care of this patient today __25__ minutes.
[2024-01-08 19:10] VITALS: BP 119/69; PULSE 105; RESP 18; TEMP 36.8; O2SAT 94
[2024-01-08] MEDS: OLANZapine 5 MG TABLET PO (22:00)
[2024-01-09 07:00] VITALS: BMI 54.8
[2024-01-09 07:27] VITALS: BP 112/58; PULSE 77; RESP 14; TEMP 37.1; O2SAT 96
[2024-01-09] MEDS: Nicotine Polacrilex 2 MG GUM BUCCAL ×6 (08:35→22:03)
--- NOTE | 2024-01-09 12:21 | P.PNPSI_ITS ---
Subjective Subjective Date of Service: 01/09/24 Reason For Visit: psychosis Interim History: calm, cooperative. informed that landlord will testify so will continue as we are through hearing on saturday. reports some poor sleep last NOC due to ruckus on the unit overnight. per staff, taking meds. attending groups. alept 8 hours. Mental Status Exam Mental Status Exam Narrative: adequately dressed and groomed. cooperative, pleasant, polite. no PMA/PMR. speech nml rate, amount, loudness, latency, prosody. thoughts linear and logical. affect full range, flexible, normo-intense, non-labile. mood not assessed. no SI/SIBI/HI/VH expressed. endorses h/o AH, denying any since admission to the hospital. Diagnostics Vital Signs (24Hr): Vital Signs - 24 hr 01/08/24 19:10 01/09/24 07:27 Temperature 98.3 F 98.8 F Pulse Rate 105 H 77 Respiratory Rate 18 14 Blood Pressure 119/69 112/58 L Pulse Oximetry 94 96 Oxygen Delivery Method Room Air Room Air BMI result Body Mass Index 54.8 Labs 12/18/23 15:27 12/18/23 15:27 Imaging Radiology Impressions: ITS Impressions Brain MRI 12/29/23 11:30 IMPRESSION: No acute intracranial findings. There is global cerebral volume loss without mesial temporal lobe predominance and there is mild chronic microangiopathy. Once the neuro quantitative data is postprocessed, an addendum will be made. Medications Medications Current Medications Acetaminophen (Acetaminophen 325 Mg Tablet) 650 mg PO Q6H PRN PRN Reason: Headache/Pain Mild Scale (1-3) Al Hydroxide/Mg Hydroxide (Magnesium Hydrox/Alum Hydrox 30 Ml Oral.Susp) 30 ml PO Q6H PRN PRN Reason: Heartburn/Nausea Benzocaine (Throat Lozenge, Medicated Lozenge) 1 lozenge MUCOUS MEM Q1H PRN PRN Reason: dry mouth Last Admin: 01/01/24 14:50 Dose: 1 lozenge Hydroxyzine HCl (Hydroxyzine Hcl 25 Mg Tablet) 25 mg PO Q6H PRN PRN Reason: Anxiety Magnesium Hydroxide (Milk Of Magnesia 30 Ml Oral.Susp) 30 ml PO DAILY PRN PRN Reason: Constipation Nicotine Polacrilex (Nicotine Polacrilex 2 Mg Gum) 2 mg BUCCAL Q1H PRN PRN Reason: Nicotine Cravings Last Admin: 01/09/24 11:18 Dose: 2 mg Olanzapine (Olanzapine 5 Mg Tablet) 5 mg PO BEDTIME LARRY Last Admin: 01/08/24 22:00 Dose: 5 mg Trazodone HCl (Trazodone Hcl 50 Mg Tablet) 50 mg PO BEDTIME MRX1 PRN PRN Reason: Insomnia Allergies Allergies Allergy/AdvReac Type Severity Reaction Status Date / Time No Known Allergies Allergy Verified 12/18/23 15:02 Assessment & Plan Assessment & Plan (1) Paresthesia: Status: Acute Code(s): R20.2 - Paresthesia of skin (2) Paranoid delusion: Status: Acute Code(s): 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 collect collateral. w/u medical etiologies for late change in mental status on , up next . will likely file due to recent h/o physical aggression and threatening behavior. 12/19: encouraged again to take medication. delusions explored in more detail, making statement suggestive of AH, which would remove delusional disorder from the differential and leave a psychotic disorder as diagnosis. legal circumstance reviewd, horne warning given. continue current mgmt. 12/20: Declining medications. Continue plan per primary team. 12/21: continue current management and treatment plan. 12/22: continue current management and treatment plan. 12/23: reporting more detailed h/o AH in addition to delusions, making psychotic D/O likely over delusional D/O. up tomorrow. 12/24: filed for commitment. no change in presentation. no concerning behaviors inpatient. continue to offer HS zyprexa. 12/25: took zyprexa 5 last night for the first time. no change in presentation. continue current mgmt. 12/26: zyprexa again last night. no change in presentation. CMP, CBC, TSH, B12, folate unremarkable. will check ESR, CRP, HIV, RPR, SILVIO, HbA1C, MRI brain to r/o other medical causes of psychosis. 12/29/2023: No changes to current treatment plan 12/29: medical w/u remains negative. SILVIO pending, but nml ESR and CRP make auto- immune disease unlikely. 12/30: MoCA 30 (lost 1 point in trail making, 2 points in recall). SILVIO negative. due to electric shock sensations in toes, T/C neuropathy and neuro consult for unknown neurodegenerative illness. continues to tolerate zyprexa 5 mg QHS. hearing 01/13. 12/31: agreeable to increase zyprexa dosing to 7.5 mg QHS. 01/02/24 Continue olanzapine patient remains with fixed delusional beliefs no insight into bizarre behavior prior to admission and how his behavior could have been perceived as threatening reportedly video recording people and children without permission. No gross organic cause noted labs and imaging reviewed might benefit from alternative such as Risperdal. Volume loss noted in brain neuro quant which was reportedly ordered not reported 01/02: pt declines switch to risperidone. neuro consult ordered due to unusual presentation coupled with motor and sensory complaints. otherwise continue current mgmt. 01/03: c/o feeling tired in the morning, appears tired. decrease zyprexa back to 5 mg QHS. talking about a mind control device being used on him at his apartment. 01/04: neuro w/u without findings. feels better back on zyprexa 5 at HS (7.5 left him groggy and drooling). continue current mgmt. 01/05: no change in presentation. continue current mgmt. 01/06: continue current tx plan. 01/07: stable. continue current mgmt. 01/08: no change in presentation. continue current mgmt. hearing next saturday. Reason for continued inpatient stay Substantial Risk for: harm to self, harm to others and inability to function Time Spent With Patient Time: Total time managing care of this patient today __25__ minutes.
[2024-01-09 20:05] VITALS: BP 136/72; PULSE 93; RESP 16; TEMP 36.8; O2SAT 96
[2024-01-09] MEDS: OLANZapine 5 MG TABLET PO (21:48)
[2024-01-10] MEDS: Nicotine Polacrilex 2 MG GUM BUCCAL ×6 (06:47→22:37)
[2024-01-10 07:05] VITALS: BP 126/72; PULSE 86; RESP 16; TEMP 36.3; O2SAT 95
[2024-01-10 08:00] VITALS: BP 126/76; PULSE 86; RESP 16; TEMP 36.3; O2SAT 95
--- NOTE | 2024-01-10 11:57 | HO.PSYCHPN ---
Subjective Subjective Date of Service: 01/10/24 Reason For Visit: psychosis Interim History: calm, pleasant, cooperative. still with excessive salivation, no other side effects of medication. will have ALANA interview this afternoon at 1. also planning to meet with his bankruptcy attorney this afternoon. per staff, increased anxiety, no depression. visible. attending groups, although per OT attending fewer with passing time. delusional. taking meds. slept 8 hours. Mental Status Exam Mental Status Exam Narrative: adequately dressed and groomed. cooperative, pleasant, polite. no PMA/PMR. speech nml rate, amount, loudness, latency, prosody. thoughts linear and logical. affect full range, flexible, normo-intense, non-labile. mood not assessed. no SI/SIBI/HI/VH expressed. endorses h/o AH, denying any since admission to the hospital. Diagnostics Vital Signs (24Hr): Vital Signs - 24 hr 01/09/24 20:05 01/10/24 07:05 Temperature 98.2 F 97.4 F Pulse Rate 93 86 Respiratory Rate 16 16 Blood Pressure 136/72 126/72 Pulse Oximetry 96 95 Oxygen Delivery Method Room Air Room Air BMI result Body Mass Index 54.8 Labs 12/18/23 15:27 12/18/23 15:27 Imaging Radiology Impressions: ITS Impressions Brain MRI 12/29/23 11:30 IMPRESSION: No acute intracranial findings. There is global cerebral volume loss without mesial temporal lobe predominance and there is mild chronic microangiopathy. Once the neuro quantitative data is postprocessed, an addendum will be made. Medications Medications Current Medications Acetaminophen (Acetaminophen 325 Mg Tablet) 650 mg PO Q6H PRN PRN Reason: Headache/Pain Mild Scale (1-3) Al Hydroxide/Mg Hydroxide (Magnesium Hydrox/Alum Hydrox 30 Ml Oral.Susp) 30 ml PO Q6H PRN PRN Reason: Heartburn/Nausea Benzocaine (Throat Lozenge, Medicated Lozenge) 1 lozenge MUCOUS MEM Q1H PRN PRN Reason: dry mouth Last Admin: 01/01/24 14:50 Dose: 1 lozenge Hydroxyzine HCl (Hydroxyzine Hcl 25 Mg Tablet) 25 mg PO Q6H PRN PRN Reason: Anxiety Magnesium Hydroxide (Milk Of Magnesia 30 Ml Oral.Susp) 30 ml PO DAILY PRN PRN Reason: Constipation Nicotine Polacrilex (Nicotine Polacrilex 2 Mg Gum) 2 mg BUCCAL Q1H PRN PRN Reason: Nicotine Cravings Last Admin: 01/10/24 10:45 Dose: 2 mg Olanzapine (Olanzapine 5 Mg Tablet) 5 mg PO BEDTIME LARRY Last Admin: 01/09/24 21:48 Dose: 5 mg Trazodone HCl (Trazodone Hcl 50 Mg Tablet) 50 mg PO BEDTIME MRX1 PRN PRN Reason: Insomnia Allergies Allergies Allergy/AdvReac Type Severity Reaction Status Date / Time No Known Allergies Allergy Verified 12/18/23 15:02 Assessment & Plan Assessment & Plan (1) Paresthesia: Status: Acute Code(s): R20.2 - Paresthesia of skin (2) Paranoid delusion: Status: Acute Code(s): 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 collect collateral. w/u medical etiologies for late change in mental status on , up next . will likely file due to recent h/o physical aggression and threatening behavior. 12/19: encouraged again to take medication. delusions explored in more detail, making statement suggestive of AH, which would remove delusional disorder from the differential and leave a psychotic disorder as diagnosis. legal circumstance reviewd, horne warning given. continue current mgmt. 12/20: Declining medications. Continue plan per primary team. 12/21: continue current management and treatment plan. 12/22: continue current management and treatment plan. 12/23: reporting more detailed h/o AH in addition to delusions, making psychotic D/O likely over delusional D/O. up tomorrow. 12/24: filed for commitment. no change in presentation. no concerning behaviors inpatient. continue to offer HS zyprexa. 12/25: took zyprexa 5 last night for the first time. no change in presentation. continue current mgmt. 12/26: zyprexa again last night. no change in presentation. CMP, CBC, TSH, B12, folate unremarkable. will check ESR, CRP, HIV, RPR, SILVIO, HbA1C, MRI brain to r/o other medical causes of psychosis. 12/29/2023: No changes to current treatment plan 12/29: medical w/u remains negative. SILVIO pending, but nml ESR and CRP make auto-immune disease unlikely. 12/30: MoCA 27/30 (lost 1 point in trail making, 2 points in recall). SILVIO negative. due to electric shock sensations in toes, T/C neuropathy and neuro consult for unknown neurodegenerative illness. continues to tolerate zyprexa 5 mg QHS. hearing 01/13. 12/31: agreeable to increase zyprexa dosing to 7.5 mg QHS. 01/02/24 Continue olanzapine patient remains with fixed delusional beliefs no insight into bizarre behavior prior to admission and how his behavior could have been perceived as threatening reportedly video recording people and children without permission. No gross organic cause noted labs and imaging reviewed might benefit from alternative such as Risperdal. Volume loss noted in brain neuro quant which was reportedly ordered not reported 01/02: pt declines switch to risperidone. neuro consult ordered due to unusual presentation coupled with motor and sensory complaints. otherwise continue current mgmt. 01/03: c/o feeling tired in the morning, appears tired. decrease zyprexa back to 5 mg QHS. talking about a mind control device being used on him at his apartment. 01/04: neuro w/u without findings. feels better back on zyprexa 5 at HS (7.5 left him groggy and drooling). continue current mgmt. 01/05: no change in presentation. continue current mgmt. 01/06: continue current tx plan. 01/07: stable. continue current mgmt. 01/08: no change in presentation. continue current mgmt. hearing next saturday. 01/09: stable presentation, no change in mgmt. ALANA and bankruptcy attorney mtg today. Reason for continued inpatient stay Substantial Risk for: harm to others and inability to function Time Spent With Patient Time: Total time managing care of this patient today __25__ minutes.
[2024-01-10 19:20] VITALS: BP 126/77; PULSE 100; RESP 16; TEMP 36.5; O2SAT 95
[2024-01-10] MEDS: OLANZapine 5 MG TABLET PO (21:56)
[2024-01-11 07:20] VITALS: BP 106/57; PULSE 58; RESP 14; TEMP 36.7; O2SAT 92
[2024-01-11] MEDS: Nicotine Polacrilex 2 MG GUM BUCCAL ×4 (07:49→19:09)
--- NOTE | 2024-01-11 09:28 | P.PNPSI_ITS ---
Subjective Subjective Date of Service: 01/11/24 Reason For Visit: psychosis Subjective Notes: Section 7 Interim History: Patient was seen and discussed in rounds today. Records and plans were reviewed. Has been stable with no behavioral issues. No acute symptoms or complaints. He has been taking his medications and does have a court hearing scheduled later this month. Eating and sleeping adequately. He does have slight drooling but does not want to take another medication. No changes were made today Medication Compliance: Yes Side effects from medications: Yes (Slight drooling) Attending Groups: Yes Mental Status Exam Mental Status Exam Narrative: In today's visit he is alert, pleasant and interactive. Normal speech. Good eye contact. Affect is varied. No acute signs of psychosis but has had history of auditory hallucinations. Cognitively appears to be intact. No SI. Judgment is mostly intact to observation. Diagnostics Vital Signs (24Hr): Vital Signs - 24 hr 01/10/24 19:20 01/11/24 07:20 Temperature 97.7 F 98.1 F Pulse Rate 100 58 Respiratory Rate 16 14 Blood Pressure 126/77 106/57 L Pulse Oximetry 95 92 Oxygen Delivery Method Room Air Room Air BMI result Body Mass Index 54.8 Labs 12/18/23 15:27 12/18/23 15:27 Imaging Radiology Impressions: ITS Impressions Brain MRI 12/29/23 11:30 IMPRESSION: No acute intracranial findings. There is global cerebral volume loss without mesial temporal lobe predominance and there is mild chronic microangiopathy. Once the neuro quantitative data is postprocessed, an addendum will be made. Medications Medications Current Medications Acetaminophen (Acetaminophen 325 Mg Tablet) 650 mg PO Q6H PRN PRN Reason: Headache/Pain Mild Scale (1-3) Al Hydroxide/Mg Hydroxide (Magnesium Hydrox/Alum Hydrox 30 Ml Oral.Susp) 30 ml PO Q6H PRN PRN Reason: Heartburn/Nausea Benzocaine (Throat Lozenge, Medicated Lozenge) 1 lozenge MUCOUS MEM Q1H PRN PRN Reason: dry mouth Last Admin: 01/01/24 14:50 Dose: 1 lozenge Hydroxyzine HCl (Hydroxyzine Hcl 25 Mg Tablet) 25 mg PO Q6H PRN PRN Reason: Anxiety Magnesium Hydroxide (Milk Of Magnesia 30 Ml Oral.Susp) 30 ml PO DAILY PRN PRN Reason: Constipation Nicotine Polacrilex (Nicotine Polacrilex 2 Mg Gum) 2 mg BUCCAL Q1H PRN PRN Reason: Nicotine Cravings Last Admin: 01/11/24 07:49 Dose: 2 mg Olanzapine (Olanzapine 5 Mg Tablet) 5 mg PO BEDTIME LARRY Last Admin: 01/10/24 21:56 Dose: 5 mg Trazodone HCl (Trazodone Hcl 50 Mg Tablet) 50 mg PO BEDTIME MRX1 PRN PRN Reason: Insomnia Allergies Allergies Allergy/AdvReac Type Severity Reaction Status Date / Time No Known Allergies Allergy Verified 12/18/23 15:02 Assessment & Plan Assessment & Plan (1) Paresthesia: Status: Acute Code(s): R20.2 - Paresthesia of skin (2) Paranoid delusion: Status: Acute Code(s): 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 collect collateral. w/u medical etiologies for late change in mental status on , up next . will likely file due to recent h/o physical aggression and threatening behavior. 12/19: encouraged again to take medication. delusions explored in more detail, making statement suggestive of AH, which would remove delusional disorder from the differential and leave a psychotic disorder as diagnosis. legal circumstance reviewd, horne warning given. continue current mgmt. 12/20: Declining medications. Continue plan per primary team. 12/21: continue current management and treatment plan. 12/22: continue current management and treatment plan. 12/23: reporting more detailed h/o AH in addition to delusions, making psychotic D/O likely over delusional D/O. up tomorrow. 12/24: filed for commitment. no change in presentation. no concerning behaviors inpatient. continue to offer HS zyprexa. 12/25: took zyprexa 5 last night for the first time. no change in presentation. continue current mgmt. 12/26: zyprexa again last night. no change in presentation. CMP, CBC, TSH, B12, folate unremarkable. will check ESR, CRP, HIV, RPR, SILVIO, HbA1C, MRI brain to r/o other medical causes of psychosis. 12/29/2023: No changes to current treatment plan 12/29: medical w/u remains negative. SILVIO pending, but nml ESR and CRP make auto- immune disease unlikely. 12/30: MoCA /30 (lost 1 point in trail making, 2 points in recall). SILVIO negative. due to electric shock sensations in toes, T/C neuropathy and neuro consult for unknown neurodegenerative illness. continues to tolerate zyprexa 5 mg QHS. hearing 01/13. 12/31: agreeable to increase zyprexa dosing to 7.5 mg QHS. 01/02/24 Continue olanzapine patient remains with fixed delusional beliefs no insight into bizarre behavior prior to admission and how his behavior could have been perceived as threatening reportedly video recording people and children without permission. No gross organic cause noted labs and imaging reviewed might benefit from alternative such as Risperdal. Volume loss noted in brain neuro quant which was reportedly ordered not reported 01/02: pt declines switch to risperidone. neuro consult ordered due to unusual presentation coupled with motor and sensory complaints. otherwise continue current mgmt. 01/03: c/o feeling tired in the morning, appears tired. decrease zyprexa back to 5 mg QHS. talking about a mind control device being used on him at his apartment. 01/04: neuro w/u without findings. feels better back on zyprexa 5 at HS (7.5 left him groggy and drooling). continue current mgmt. 01/05: no change in presentation. continue current mgmt. 01/06: continue current tx plan. 01/07: stable. continue current mgmt. 01/08: no change in presentation. continue current mgmt. hearing next saturday. 01/09: stable presentation, no change in mgmt. ALANA and immigration attorney mtg today. 01/10: Continue current regimen and plans Reason for continued inpatient stay Substantial Risk for: rapid decompensation Time Spent With Patient Time: Total time managing care of this patient today ____ minutes.
--- NOTE | 2024-01-11 09:34 | HO.PSYCHPN ---
Subjective Subjective Date of Service: 01/11/24 Reason For Visit: psychosis Subjective Notes: Section 7 Interim History: Patient was seen and discussed in rounds today. Records and plans were reviewed. He has been medication compliant. No complaints or side effects but reported to have slight drooling which he does not want to take another medication for. He does have a court hearing scheduled for this month. Eating and sleeping adequately. No changes were made today Medication Compliance: Yes Mental Status Exam Mental Status Exam Narrative: In today's visit he is alert, oriented and pleasant. Normal speech. Good eye contact. Appropriate affect. No acute signs of psychosis but has had auditory hallucinations. No overt delusions but reported to have them. No SI. Cognitively is grossly intact. Judgment is mostly intact observation Diagnostics Vital Signs (24Hr): Vital Signs - 24 hr 01/10/24 19:20 01/11/24 07:20 Temperature 97.7 F 98.1 F Pulse Rate 100 58 Respiratory Rate 16 14 Blood Pressure 126/77 106/57 L Pulse Oximetry 95 92 Oxygen Delivery Method Room Air Room Air BMI result Body Mass Index 54.8 Labs 12/18/23 15:27 12/18/23 15:27 Imaging Radiology Impressions: ITS Impressions Brain MRI 12/29/23 11:30 IMPRESSION: No acute intracranial findings. There is global cerebral volume loss without mesial temporal lobe predominance and there is mild chronic microangiopathy. Once the neuro quantitative data is postprocessed, an addendum will be made. Medications Medications Current Medications Acetaminophen (Acetaminophen 325 Mg Tablet) 650 mg PO Q6H PRN PRN Reason: Headache/Pain Mild Scale (1-3) Al Hydroxide/Mg Hydroxide (Magnesium Hydrox/Alum Hydrox 30 Ml Oral.Susp) 30 ml PO Q6H PRN PRN Reason: Heartburn/Nausea Benzocaine (Throat Lozenge, Medicated Lozenge) 1 lozenge MUCOUS MEM Q1H PRN PRN Reason: dry mouth Last Admin: 01/01/24 14:50 Dose: 1 lozenge Hydroxyzine HCl (Hydroxyzine Hcl 25 Mg Tablet) 25 mg PO Q6H PRN PRN Reason: Anxiety Magnesium Hydroxide (Milk Of Magnesia 30 Ml Oral.Susp) 30 ml PO DAILY PRN PRN Reason: Constipation Nicotine Polacrilex (Nicotine Polacrilex 2 Mg Gum) 2 mg BUCCAL Q1H PRN PRN Reason: Nicotine Cravings Last Admin: 01/11/24 07:49 Dose: 2 mg Olanzapine (Olanzapine 5 Mg Tablet) 5 mg PO BEDTIME LARRY Last Admin: 01/10/24 21:56 Dose: 5 mg Trazodone HCl (Trazodone Hcl 50 Mg Tablet) 50 mg PO BEDTIME MRX1 PRN PRN Reason: Insomnia Allergies Allergies Allergy/AdvReac Type Severity Reaction Status Date / Time No Known Allergies Allergy Verified 12/18/23 15:02 Assessment & Plan Assessment & Plan (1) Paresthesia: Status: Acute Code(s): R20.2 - Paresthesia of skin (2) Paranoid delusion: Status: Acute Code(s): 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 collect collateral. w/u medical etiologies for late change in mental status on , up next . will likely file due to recent h/o physical aggression and threatening behavior. 12/19: encouraged again to take medication. delusions explored in more detail, making statement suggestive of AH, which would remove delusional disorder from the differential and leave a psychotic disorder as diagnosis. legal circumstance reviewd, horne warning given. continue current mgmt. 12/20: Declining medications. Continue plan per primary team. 12/21: continue current management and treatment plan. 12/22: continue current management and treatment plan. 12/23: reporting more detailed h/o AH in addition to delusions, making psychotic D/O likely over delusional D/O. b up tomorrow. 12/24: filed for commitment. no change in presentation. no concerning behaviors inpatient. continue to offer HS zyprexa. 12/25: took zyprexa 5 last night for the first time. no change in presentation. continue current mgmt. 12/26: zyprexa again last night. no change in presentation. CMP, CBC, TSH, B12, folate unremarkable. will check ESR, CRP, HIV, RPR, SILVIO, HbA1C, MRI brain to r/o other medical causes of psychosis. 12/29/2023: No changes to current treatment plan 12/29: medical w/u remains negative. SILVIO pending, but nml ESR and CRP make auto-immune disease unlikely. 12/30: MoCA 27/30 (lost 1 point in trail making, 2 points in recall). SILVIO negative. due to electric shock sensations in toes, T/C neuropathy and neuro consult for unknown neurodegenerative illness. continues to tolerate zyprexa 5 mg QHS. hearing 01/13. 12/31: agreeable to increase zyprexa dosing to 7.5 mg QHS. 01/02/24 Continue olanzapine patient remains with fixed delusional beliefs no insight into bizarre behavior prior to admission and how his behavior could have been perceived as threatening reportedly video recording people and children without permission. No gross organic cause noted labs and imaging reviewed might benefit from alternative such as Risperdal. Volume loss noted in brain neuro quant which was reportedly ordered not reported 01/02: pt declines switch to risperidone. neuro consult ordered due to unusual presentation coupled with motor and sensory complaints. otherwise continue current mgmt. 01/03: c/o feeling tired in the morning, appears tired. decrease zyprexa back to 5 mg QHS. talking about a mind control device being used on him at his apartment. 01/04: neuro w/u without findings. feels better back on zyprexa 5 at HS (7.5 left him groggy and drooling). continue current mgmt. 01/05: no change in presentation. continue current mgmt. 01/06: continue current tx plan. 01/07: stable. continue current mgmt. 01/08: no change in presentation. continue current mgmt. hearing next saturday. 01/09: stable presentation, no change in mgmt. ALANA and prosecuting attorney mtg today. 01/10: Continue current regimen and plans Patient educated on: medication risk/benefits Reason for continued inpatient stay Substantial Risk for: rapid decompensation Time Spent With Patient Time: Total time managing care of this patient today ____ minutes.
[2024-01-11 20:00] VITALS: BP 114/71; PULSE 91; RESP 16; TEMP 36.9; O2SAT 96
[2024-01-11] MEDS: OLANZapine 5 MG TABLET PO (21:53)
[2024-01-12] MEDS: Nicotine Polacrilex 2 MG GUM BUCCAL ×4 (08:26→22:24)
[2024-01-12 08:30] VITALS: BP 130/72; PULSE 81; RESP 16; TEMP 36.4; O2SAT 96
--- NOTE | 2024-01-12 09:52 | HO.PSYCHPN ---
Subjective Subjective Date of Service: 01/12/24 Reason For Visit: psychosis Subjective Notes: Section 7 Interim History: Patient was seen and discussed in rounds today. Records and plans were reviewed. He continues to be anxious about his court on the . Not attending any groups. No AVH. No SI. Eating and sleeping adequately. No changes were made today Medication Compliance: Yes Review of Systems Review of Systems Yes all other systems are reviewed and are negative Mental Status Exam Mental Status Exam Narrative: In today's visit he is alert, oriented and pleasant. Normal speech. Good eye contact. Appropriate affect. No acute signs of psychosis but has had auditory hallucinations. No overt delusions but reported to have them. No SI. Cognitively is grossly intact. Judgment is mostly intact observation Diagnostics Vital Signs (24Hr): Vital Signs - 24 hr 01/11/24 20:00 01/12/24 08:30 Temperature 98.4 F 97.6 F Pulse Rate 91 81 Respiratory Rate 16 16 Blood Pressure 114/71 130/72 Pulse Oximetry 96 96 Oxygen Delivery Method Room Air Room Air BMI result Body Mass Index 54.8 Labs 12/18/23 15:27 12/18/23 15:27 Imaging Radiology Impressions: ITS Impressions Brain MRI 12/29/23 11:30 IMPRESSION: No acute intracranial findings. There is global cerebral volume loss without mesial temporal lobe predominance and there is mild chronic microangiopathy. Once the neuro quantitative data is postprocessed, an addendum will be made. Medications Medications Current Medications Acetaminophen (Acetaminophen 325 Mg Tablet) 650 mg PO Q6H PRN PRN Reason: Headache/Pain Mild Scale (1-3) Al Hydroxide/Mg Hydroxide (Magnesium Hydrox/Alum Hydrox 30 Ml Oral.Susp) 30 ml PO Q6H PRN PRN Reason: Heartburn/Nausea Benzocaine (Throat Lozenge, Medicated Lozenge) 1 lozenge MUCOUS MEM Q1H PRN PRN Reason: dry mouth Last Admin: 01/01/24 14:50 Dose: 1 lozenge Hydroxyzine HCl (Hydroxyzine Hcl 25 Mg Tablet) 25 mg PO Q6H PRN PRN Reason: Anxiety Magnesium Hydroxide (Milk Of Magnesia 30 Ml Oral.Susp) 30 ml PO DAILY PRN PRN Reason: Constipation Nicotine Polacrilex (Nicotine Polacrilex 2 Mg Gum) 2 mg BUCCAL Q1H PRN PRN Reason: Nicotine Cravings Last Admin: 01/12/24 08:26 Dose: 2 mg Olanzapine (Olanzapine 5 Mg Tablet) 5 mg PO BEDTIME LARRY Last Admin: 01/11/24 21:53 Dose: 5 mg Trazodone HCl (Trazodone Hcl 50 Mg Tablet) 50 mg PO BEDTIME MRX1 PRN PRN Reason: Insomnia Allergies Allergies Allergy/AdvReac Type Severity Reaction Status Date / Time No Known Allergies Allergy Verified 12/18/23 15:02 Assessment & Plan Assessment & Plan (1) Paresthesia: Status: Acute Code(s): R20.2 - Paresthesia of skin (2) Paranoid delusion: Status: Acute Code(s): 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 collect collateral. w/u medical etiologies for late change in mental status on , up next . will likely file due to recent h/o physical aggression and threatening behavior. 12/19: encouraged again to take medication. delusions explored in more detail, making statement suggestive of AH, which would remove delusional disorder from the differential and leave a psychotic disorder as diagnosis. legal circumstance reviewd, horne warning given. continue current mgmt. 12/20: Declining medications. Continue plan per primary team. 12/21: continue current management and treatment plan. 12/22: continue current management and treatment plan. 12/23: reporting more detailed h/o AH in addition to delusions, making psychotic D/O likely over delusional D/O. b up tomorrow. 12/24: filed for commitment. no change in presentation. no concerning behaviors inpatient. continue to offer HS zyprexa. 12/25: took zyprexa 5 last night for the first time. no change in presentation. continue current mgmt. 12/26: zyprexa again last night. no change in presentation. CMP, CBC, TSH, B12, folate unremarkable. will check ESR, CRP, HIV, RPR, SILVIO, HbA1C, MRI brain to r/o other medical causes of psychosis. 12/29/2023: No changes to current treatment plan 12/29: medical w/u remains negative. SILVIO pending, but nml ESR and CRP make auto-immune disease unlikely. 12/30: MoCA (lost 1 point in trail making, 2 points in recall). SILVIO negative. due to electric shock sensations in toes, T/C neuropathy and neuro consult for unknown neurodegenerative illness. continues to tolerate zyprexa 5 mg QHS. hearing 01/13. 12/31: agreeable to increase zyprexa dosing to 7.5 mg QHS. 01/02/24 Continue olanzapine patient remains with fixed delusional beliefs no insight into bizarre behavior prior to admission and how his behavior could have been perceived as threatening reportedly video recording people and children without permission. No gross organic cause noted labs and imaging reviewed might benefit from alternative such as Risperdal. Volume loss noted in brain neuro quant which was reportedly ordered not reported 01/02: pt declines switch to risperidone. neuro consult ordered due to unusual presentation coupled with motor and sensory complaints. otherwise continue current mgmt. 01/03: c/o feeling tired in the morning, appears tired. decrease zyprexa back to 5 mg QHS. talking about a mind control device being used on him at his apartment. 01/04: neuro w/u without findings. feels better back on zyprexa 5 at HS (7.5 left him groggy and drooling). continue current mgmt. 01/05: no change in presentation. continue current mgmt. 01/06: continue current tx plan. 01/07: stable. continue current mgmt. 01/08: no change in presentation. continue current mgmt. hearing next saturday. 01/09: stable presentation, no change in mgmt. ALANA and commercial litigation attorney mtg today. 01/10: Continue current regimen and plans 01/11: Continue current plans and regimen. Reason for continued inpatient stay Substantial Risk for: rapid decompensation Time Spent With Patient Time: Total time managing care of this patient today ____ minutes.
[2024-01-12 20:00] VITALS: BP 134/81; PULSE 95; RESP 14; TEMP 37.1; O2SAT 94
[2024-01-12] MEDS: OLANZapine 5 MG TABLET PO (21:48)
[2024-01-13] MEDS: Nicotine Polacrilex 2 MG GUM BUCCAL ×5 (07:51→21:55)
[2024-01-13 07:55] VITALS: BP 118/61; PULSE 80; RESP 18; TEMP 36.5; O2SAT 95
[2024-01-13 08:00] VITALS: BP 118/61; PULSE 80; RESP 18; TEMP 36.5; O2SAT 95
--- NOTE | 2024-01-13 14:06 | P.PNPSI_ITS ---
Subjective Subjective Date of Service: 01/13/24 Reason For Visit: psychosis Interim History: seen with medical student rubén. calm, cooperative, pleasant. agrees to sign in on a CV, then sign 3-day notice. will plan to discharge pt upon expiry of 3- day, as pt states he feels better than prior to admission and then he had been sleeping little and not feeling calm, whereas now he is sleeping well and feeling calm. he agrees to continue the medication at home. per staff, court tomorrow. no dep, +anx. bright, taking meds. slept overnight. Mental Status Exam Mental Status Exam Narrative: adequately dressed and groomed. cooperative, pleasant, polite. no PMA/PMR. speech nml rate, amount, loudness, latency, prosody. thoughts linear and logical. affect full range, flexible, normo-intense, non-labile. mood not assessed. no SI/SIBI/HI/VH expressed. endorses h/o AH, denying any since admission to the hospital. Diagnostics Vital Signs (24Hr): Vital Signs - 24 hr 01/12/24 20:00 01/13/24 07:55 01/13/24 08:00 Temperature 98.8 F 97.7 F 97.7 F Pulse Rate 95 80 80 Respiratory Rate 14 18 18 Blood Pressure 134/81 118/61 118/61 Pulse Oximetry 94 95 95 Oxygen Delivery Method Room Air Room Air Room Air BMI result Body Mass Index 54.8 Labs 12/18/23 15:27 12/18/23 15:27 Imaging Radiology Impressions: ITS Impressions Brain MRI 12/29/23 11:30 IMPRESSION: No acute intracranial findings. There is global cerebral volume loss without mesial temporal lobe predominance and there is mild chronic microangiopathy. Once the neuro quantitative data is postprocessed, an addendum will be made. Medications Medications Current Medications Acetaminophen (Acetaminophen 325 Mg Tablet) 650 mg PO Q6H PRN PRN Reason: Headache/Pain Mild Scale (1-3) Al Hydroxide/Mg Hydroxide (Magnesium Hydrox/Alum Hydrox 30 Ml Oral.Susp) 30 ml PO Q6H PRN PRN Reason: Heartburn/Nausea Benzocaine (Throat Lozenge, Medicated Lozenge) 1 lozenge MUCOUS MEM Q1H PRN PRN Reason: dry mouth Last Admin: 01/01/24 14:50 Dose: 1 lozenge Hydroxyzine HCl (Hydroxyzine Hcl 25 Mg Tablet) 25 mg PO Q6H PRN PRN Reason: Anxiety Magnesium Hydroxide (Milk Of Magnesia 30 Ml Oral.Susp) 30 ml PO DAILY PRN PRN Reason: Constipation Nicotine Polacrilex (Nicotine Polacrilex 2 Mg Gum) 2 mg BUCCAL Q1H PRN PRN Reason: Nicotine Cravings Last Admin: 01/13/24 13:49 Dose: 2 mg Olanzapine (Olanzapine 5 Mg Tablet) 5 mg PO BEDTIME LARRY Last Admin: 01/12/24 21:48 Dose: 5 mg Trazodone HCl (Trazodone Hcl 50 Mg Tablet) 50 mg PO BEDTIME MRX1 PRN PRN Reason: Insomnia Allergies Allergies Allergy/AdvReac Type Severity Reaction Status Date / Time No Known Allergies Allergy Verified 12/18/23 15:02 Assessment & Plan Assessment & Plan (1) Paresthesia: Status: Acute Code(s): R20.2 - Paresthesia of skin (2) Paranoid delusion: Status: Acute Code(s): 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 collect collateral. w/u medical etiologies for late change in mental status on , up next . will likely file due to recent h/o physical aggression and threatening behavior. 12/19: encouraged again to take medication. delusions explored in more detail, making statement suggestive of AH, which would remove delusional disorder from the differential and leave a psychotic disorder as diagnosis. legal circumstance reviewd, horne warning given. continue current mgmt. 12/20: Declining medications. Continue plan per primary team. 12/21: continue current management and treatment plan. 12/22: continue current management and treatment plan. 12/23: reporting more detailed h/o AH in addition to delusions, making psychotic D/O likely over delusional D/O. up tomorrow. 12/24: filed for commitment. no change in presentation. no concerning behaviors inpatient. continue to offer HS zyprexa. 12/25: took zyprexa 5 last night for the first time. no change in presentation. continue current mgmt. 12/26: zyprexa again last night. no change in presentation. CMP, CBC, TSH, B12, folate unremarkable. will check ESR, CRP, HIV, RPR, SILVIO, HbA1C, MRI brain to r/o other medical causes of psychosis. 12/29/2023: No changes to current treatment plan 12/29: medical w/u remains negative. SILVIO pending, but nml ESR and CRP make auto- immune disease unlikely. 12/30: MoCA 27/30 (lost 1 point in trail making, 2 points in recall). SILVIO negative. due to electric shock sensations in toes, T/C neuropathy and neuro consult for unknown neurodegenerative illness. continues to tolerate zyprexa 5 mg QHS. hearing 01/13. 12/31: agreeable to increase zyprexa dosing to 7.5 mg QHS. 01/02/24 Continue olanzapine patient remains with fixed delusional beliefs no insight into bizarre behavior prior to admission and how his behavior could have been perceived as threatening reportedly video recording people and children without permission. No gross organic cause noted labs and imaging reviewed might benefit from alternative such as Risperdal. Volume loss noted in brain neuro quant which was reportedly ordered not reported 01/02: pt declines switch to risperidone. neuro consult ordered due to unusual presentation coupled with motor and sensory complaints. otherwise continue current mgmt. 01/03: c/o feeling tired in the morning, appears tired. decrease zyprexa back to 5 mg QHS. talking about a mind control device being used on him at his apartment. 01/04: neuro w/u without findings. feels better back on zyprexa 5 at HS (7.5 left him groggy and drooling). continue current mgmt. 01/05: no change in presentation. continue current mgmt. 01/06: continue current tx plan. 01/07: stable. continue current mgmt. 01/08: no change in presentation. continue current mgmt. hearing next saturday. 01/09: stable presentation, no change in mgmt. ALANA and research attorney mtg today. 01/10: Continue current regimen and plans 01/11: Continue current plans and regimen. 01/12: signed CV, then 3-day notice. due to holiday, 3-day matures on saturday. states will continue medication after discharge. will likely discharge on expiry of 3-day notice. Reason for continued inpatient stay Substantial Risk for: rapid decompensation Time Spent With Patient Time: Total time managing care of this patient today _35___ minutes.
[2024-01-13 19:20] VITALS: BP 128/74; PULSE 109; RESP 18; TEMP 36.9; O2SAT 94
[2024-01-13] MEDS: OLANZapine 5 MG TABLET PO (21:55)
[2024-01-14] MEDS: Nicotine Polacrilex 2 MG GUM BUCCAL ×4 (06:58→18:39)
[2024-01-14 07:45] VITALS: BP 122/75; PULSE 80; RESP 16; TEMP 36.4; O2SAT 96
--- NOTE | 2024-01-14 16:04 | P.PNPSI_ITS ---
Subjective Subjective Date of Service: 01/14/24 Reason For Visit: psychosis Interim History: calm, cooperative. looking forward to DC saturday. despite sialorrhea, would like to continue on zyprexa. no questions or complaints. per staff, 3-day up saturday. denies psych Sx. slept 7 hours. Mental Status Exam Mental Status Exam Narrative: adequately dressed and groomed. cooperative, pleasant, polite. no PMA/PMR. speech nml rate, amount, loudness, latency, prosody. thoughts linear and logical. affect full range, flexible, normo-intense, non-labile. mood not assessed. no SI/SIBI/HI/VH expressed. endorses h/o AH, denying any since admission to the hospital. Diagnostics Vital Signs (24Hr): Vital Signs - 24 hr 01/13/24 19:20 01/14/24 07:45 Temperature 98.5 F 97.5 F Pulse Rate 109 H 80 Respiratory Rate 18 16 Blood Pressure 128/74 122/75 Pulse Oximetry 94 96 Oxygen Delivery Method Room Air Room Air BMI result Body Mass Index 54.8 Labs 12/18/23 15:27 12/18/23 15:27 Imaging Radiology Impressions: ITS Impressions Brain MRI 12/29/23 11:30 IMPRESSION: No acute intracranial findings. There is global cerebral volume loss without mesial temporal lobe predominance and there is mild chronic microangiopathy. Once the neuro quantitative data is postprocessed, an addendum will be made. Medications Medications Current Medications Acetaminophen (Acetaminophen 325 Mg Tablet) 650 mg PO Q6H PRN PRN Reason: Headache/Pain Mild Scale (1-3) Al Hydroxide/Mg Hydroxide (Magnesium Hydrox/Alum Hydrox 30 Ml Oral.Susp) 30 ml PO Q6H PRN PRN Reason: Heartburn/Nausea Benzocaine (Throat Lozenge, Medicated Lozenge) 1 lozenge MUCOUS MEM Q1H PRN PRN Reason: dry mouth Last Admin: 01/01/24 14:50 Dose: 1 lozenge Hydroxyzine HCl (Hydroxyzine Hcl 25 Mg Tablet) 25 mg PO Q6H PRN PRN Reason: Anxiety Magnesium Hydroxide (Milk Of Magnesia 30 Ml Oral.Susp) 30 ml PO DAILY PRN PRN Reason: Constipation Nicotine Polacrilex (Nicotine Polacrilex 2 Mg Gum) 2 mg BUCCAL Q1H PRN PRN Reason: Nicotine Cravings Last Admin: 01/14/24 13:19 Dose: 2 mg Olanzapine (Olanzapine 5 Mg Tablet) 5 mg PO BEDTIME LARRY Last Admin: 01/13/24 21:55 Dose: 5 mg Trazodone HCl (Trazodone Hcl 50 Mg Tablet) 50 mg PO BEDTIME MRX1 PRN PRN Reason: Insomnia Allergies Allergies Allergy/AdvReac Type Severity Reaction Status Date / Time No Known Allergies Allergy Verified 12/18/23 15:02 Assessment & Plan Assessment & Plan (1) Paresthesia: Status: Acute Code(s): R20.2 - Paresthesia of skin (2) Paranoid delusion: Status: Acute Code(s): 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 collect collateral. w/u medical etiologies for late change in mental status on , up next . will likely file due to recent h/o physical aggression and threatening behavior. 12/19: encouraged again to take medication. delusions explored in more detail, making statement suggestive of AH, which would remove delusional disorder from the differential and leave a psychotic disorder as diagnosis. legal circumstance reviewd, horne warning given. continue current mgmt. 12/20: Declining medications. Continue plan per primary team. 12/21: continue current management and treatment plan. 12/22: continue current management and treatment plan. 12/23: reporting more detailed h/o AH in addition to delusions, making psychotic D/O likely over delusional D/O. up tomorrow. 12/24: filed for commitment. no change in presentation. no concerning behaviors inpatient. continue to offer HS zyprexa. 12/25: took zyprexa 5 last night for the first time. no change in presentation. continue current mgmt. 12/26: zyprexa again last night. no change in presentation. CMP, CBC, TSH, B12, folate unremarkable. will check ESR, CRP, HIV, RPR, SILVIO, HbA1C, MRI brain to r/o other medical causes of psychosis. 12/29/2023: No changes to current treatment plan 12/29: medical w/u remains negative. SILVIO pending, but nml ESR and CRP make auto- immune disease unlikely. 12/30: MoCA 27/30 (lost 1 point in trail making, 2 points in recall). SILVIO negative. due to electric shock sensations in toes, T/C neuropathy and neuro consult for unknown neurodegenerative illness. continues to tolerate zyprexa 5 mg QHS. hearing 01/13. 12/31: agreeable to increase zyprexa dosing to 7.5 mg QHS. 01/02/24 Continue olanzapine patient remains with fixed delusional beliefs no insight into bizarre behavior prior to admission and how his behavior could have been perceived as threatening reportedly video recording people and children without permission. No gross organic cause noted labs and imaging reviewed might benefit from alternative such as Risperdal. Volume loss noted in brain neuro quant which was reportedly ordered not reported 01/02: pt declines switch to risperidone. neuro consult ordered due to unusual presentation coupled with motor and sensory complaints. otherwise continue current mgmt. 01/03: c/o feeling tired in the morning, appears tired. decrease zyprexa back to 5 mg QHS. talking about a mind control device being used on him at his apartment. 01/04: neuro w/u without findings. feels better back on zyprexa 5 at HS (7.5 left him groggy and drooling). continue current mgmt. 01/05: no change in presentation. continue current mgmt. 01/06: continue current tx plan. 01/07: stable. continue current mgmt. 01/08: no change in presentation. continue current mgmt. hearing next saturday. 01/09: stable presentation, no change in mgmt. ALANA and business attorney mtg today. 01/10: Continue current regimen and plans 01/11: Continue current plans and regimen. 01/12: signed CV, then 3-day notice. due to holiday, 3-day matures on saturday. states will continue medication after discharge. will likely discharge on expiry of 3-day notice. 01/13: stable presentation. elects to remain on zyprexa despite sialorrhea. planning for saturday discharge. Reason for continued inpatient stay Substantial Risk for: harm to others, inability to function and rapid decompensation Time Spent With Patient Time: Total time managing care of this patient today __25__ minutes.
[2024-01-14 20:00] VITALS: BP 128/66; PULSE 90; RESP 18; TEMP 36.7; O2SAT 95
[2024-01-14] MEDS: OLANZapine 5 MG TABLET PO (21:59)
[2024-01-15 07:41] VITALS: BP 119/58; PULSE 76; RESP 14; TEMP 37.5; O2SAT 95
[2024-01-15] MEDS: Nicotine Polacrilex 2 MG GUM BUCCAL ×4 (08:01→20:26)
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
[2024-01-15 20:00] VITALS: BP 128/71; PULSE 102; RESP 16; TEMP 36.5; O2SAT 95
[2024-01-15] MEDS: OLANZapine 5 MG TABLET PO (21:56)
[2024-01-16 07:00] VITALS: BMI 25.1
[2024-01-16 07:40] VITALS: BP 121/66; PULSE 76; RESP 16; TEMP 36.4; O2SAT 96
[2024-01-16] MEDS: Nicotine Polacrilex 2 MG GUM BUCCAL ×4 (08:28→19:32)
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
[2024-01-16 19:35] VITALS: BP 128/78; PULSE 110; RESP 20; TEMP 36.7; O2SAT 97
[2024-01-16] MEDS: OLANZapine 5 MG TABLET PO (21:57)
[2024-01-17] MEDS: Nicotine Polacrilex 2 MG GUM BUCCAL ×2 (06:16→09:43)
[2024-01-17 08:00] VITALS: BP 120/72; PULSE 81; RESP 16; TEMP 36.2; O2SAT 98
== END 2024-01-17 10:53 | disposition home or self-care (01) | DRG 885 ==
LOC: HO.ED 12-19 08:29 → HO.PADLT16 12-19 11:20
PROVIDERS: Admitting Provider Psychiatry & Neurology Psychiatry; Emergency Provider Emergency Medicine; PCP Internal Medicine; Visit Provider Psychiatry & Neurology Psychiatry
DX: F22 Delusional disorders (principal); R20.2 Paresthesia of skin; F17.210 Nicotine dependence, cigarettes, uncomplicated; Z71.6 Tobacco abuse counseling
CPT/HCPCS: 36415; 70551; 76377; 80053; 80061; 80307; 81003; 82607; 82746; 83036; 84439; 84443; 85025; 85652; 86038; 86140; 86780; 87389; 93005; 99285

== ENCOUNTER → 2023-12-19 08:57 | Outpatient (BNV) | payer MEDICARE, SELFPAY | PROVIDERS: Admitting Provider Psychiatry & Neurology Psychiatry; Emergency Provider Emergency Medicine; PCP Internal Medicine; Visit Provider Internal Medicine Cardiovascular Disease | DX: I45.81 Long QT syndrome (principal) | CPT/HCPCS: 93010 ==

== ENCOUNTER → 2023-12-19 11:04 | Outpatient (BNV) | payer MEDICARE, SELFPAY | PROVIDERS: Admitting Provider Psychiatry & Neurology Psychiatry; Emergency Provider Emergency Medicine; PCP Internal Medicine; Visit Provider Psychiatry & Neurology Neurology | DX: R20.2 Paresthesia of skin (principal) | CPT/HCPCS: 99221 ==

== ENCOUNTER → 2023-12-19 11:04 | Outpatient (BNV) | payer MEDICARE, SELFPAY | PROVIDERS: Admitting Provider Psychiatry & Neurology Psychiatry; Emergency Provider Emergency Medicine; PCP Internal Medicine; Visit Provider Psychiatry & Neurology Psychiatry | DX: F22 Delusional disorders (principal) | CPT/HCPCS: 99232 ==

== ENCOUNTER → 2023-12-19 11:04 | Outpatient (BNV) | payer MEDICARE, SELFPAY | PROVIDERS: Admitting Provider Psychiatry & Neurology Psychiatry; Emergency Provider Emergency Medicine; PCP Internal Medicine; Visit Provider Psychiatry & Neurology Psychiatry | DX: F22 Delusional disorders (principal); R20.2 Paresthesia of skin | CPT/HCPCS: 90792; 99231; 99232; 99239 ==

== ENCOUNTER 2025-03-31 15:42 | Emergency (ER) | payer MEDICARE, SELFPAY ==
--- OUTSIDE RECORDS SUMMARY | 2024-01-02 06:00 | XMS_ITS ---
Author Organization [facility] mraietta Exeter Address [address] [place] [address] Care Team Providers Care Respiratory Director Name Role Phone Elian Wolfe Unavailable [phone] Social History Tobacco Use: Social History Observation [...] 01/02/2024 Encounters Encounter Location Date Provider Diagnosis [facility] [address] [id number] 01/02/2024 Elian Wolfe Plan Of Treatment No Information Progress Notes * Deni FUDOB:1950 (75 yo M)Acc No.[id number]:01/02/2024 Progress Notes Patient: Deni GALLOWAY Provider: Lorenza Wolfe DPM :1950 A ge:74 Y S ex:Male Date:01/02/2024 Address:[address], [address] , [place], [place] Subjective: * Chief Complaints: * * Medical [...] 01/02/2024 Generated for Kadie osei/Devi/Praful on: 0 03/31/2025 09:02 PM EDT
[2025-03-31 16:07] VITALS: BP 136/70; PULSE 109; RESP 18; TEMP 36.7; O2SAT 97; BMI 23.3
--- OUTSIDE RECORDS SUMMARY | 2025-03-31 21:03 | XMS_ITS | Patient Health Record ---
Author Organization [facility] [place] Address [address] [place] [address] Care Team Providers Care Project Hire Name Role Phone Elian Wolfe Unavailable [phone] Reason For Referral No Information Social History Tobacco Use: Social History Observation [...] an other tobacco user? Yes V ape Plan Of Treatment No Information Insurance Providers Payer Name Payer Address Payer Phone Subscriber Number Group Number Insured Name Patient Relationship to Insured Coverage Start Date Coverage End Date Medicare National [employer]t [employer] [address] [place] [address] [id number] Deni Garcia Self - patient is the insured Medical (General) History Medical History History ICD Code Adjustment reaction to chronic stress Unspecified Psychosis Paranoid Cataracts Smoker Left Inguinal Hernia Surgical History Surgery Date(Month/Year) Hernia Repair
--- OUTSIDE RECORDS SUMMARY | 2025-03-31 21:03 | XMS_ITS | Clinical Summary ---
Author Organization [facility] [employer] Address [address] [place] [address] Care Team Providers Care Filling Machine Operator Name Role Phone Unavailable Primary Care Provider Unavailabl e Allergies No known active allergies Medications No known medications Active Problems No known active problems Immunizations Immunization Administration Dates Next Due Influenza High-dose Quadrivalent Preservative Fr ee 05/08/2023 Influenza Injectable Quadriv alant Preservative Free IIV4 MDCK 04/28/2020 Influenza Quadrivalent Adjuvanted 05/18/2022 Influenza injectable quadrivalent preservative f ree 06/19/2021 Pfizer Covid-19 Vaccine 12+ 05/08/2023 Social History Tobacco Use Types Packs/Day Years Used Date Smoking Tobacco: Every Day Cigarettes Passive Smoke Exposure: Never Smokeless Tobacco: Never Sex and Gender Information Value Date Recorded Sex Assigned at Male 05/28/2022 10:37 AM EDT Legal Sex Male 10:37 AM EDT Gender Identity Choose not to disclose 10:37 AM EDT Sexual Orientation Choose not to disclose 2021 10:37 AM EDT Last Filed Vital Signs Vital Sign Reading Time Taken Comments Blood Pressure 124/78 11/14/2023 9:10 AM EDT Pulse 70 02/19/2023 10:02 AM EDT Temperature - - Respiratory Rate - - Oxygen Saturation - - Inhaled Oxygen Concentration - - Weight - - Height - - Body Mass Index - - Plan of Treatment Upcoming Encounters Date Type Department Care Team (Late st Contact Info) Description 04/19/2025 1:30 PM EDT Office Visit [facility] ADULT D[facility]AL [address] [place] [address] Evan Zambrano DMD [address] [place] [address] Health Maintenance Due Date Last Done Comments CT Colonography 1951 Colonoscopy 1951 Colorectal Cancer Screening 1951 Depression Screening 1951 FIT DNA/Cologuard 1951 FIT 1951 FOBT 1951 Lipid Panel 1951 SDOH Screening 1951 Sigmoidoscopy 1951 Alcohol/Substance Use Screening 1963 Hepatitis C Screening 1969 DTaP/Tdap/Td Vaccines (1 - Tdap) 1970 Pneumococcal Vaccine: 50+ Years (1 of 2 - PCV) 1970 Zoster Vaccines (1 of 2) 2001 Dental Oral Exam 08/23/2023 02/19/2023, 09/05/2021 Dental Prophylaxis 08/23/2023 02/19/2023 Dental X-Ray: Full Mouth 09/06/2024 09/05/2021 Tobacco Screening 11/13/2024 11/14/2023 Dental X-Ray: Bitewings 11/14/2024 11/14/19 24, 10/18/2023, 02/19/2023, Additional history exists COVID-19 Vaccine (2024- season) 2025 05/08/2023, 05/18/2022, 12/01/2021, Additional history exists Influenza Vaccine (#1) 2025 , 05/18/2022, 06/19/2021, Additional history exists RSV Patients and Patients Aged 60 years or older (1 - 1-dose 75+ series) 2026 HIB Vaccines Aged Out No longer eligi ble based on patient's age to complete this topic HPV Vaccines Aged Out No longer eligi ble based on patient's age to complete this topic Hepatitis A Vaccines Aged Out No long er eligible based on patient's age to complete this topic Hepatitis B Vaccines Aged Out No long er eligible based on patient's age to complete this topic IPV Vaccines Aged Out No longer eligi ble based on patient's age to complete this topic Meningococcal B Vaccine Aged Out No l onger eligible based on patient's age to complete this topic Meningococcal Vaccine Aged Out No margareth freda eligible based on patient's age to complete this topic RSV under 20 months Aged Out No longe r eligible based on patient's age to complete this topic Rotavirus Vaccines Aged Out No longer eligible based on patient's age to complete this topic Procedures Procedure Name Priority Date/Time Associated Diagnosis Comments BITEWING - SINGLE RADIOGRAPHIC IMAGE Routine 11/14/2023 9:00 AM EDT Closed fracture of tooth, sequela Full PROPHYLAXIS - ADULT Routine 023 10:00 AM EDT PERIODIC ORAL EVALUATION - ESTABLISHED PATIENT Routine 02/19/2023 10:00 AM EDT INTRAORAL - COMPLETE SERIES OF RADIOGRAPHIC IMAGES Routine 09/05/2021 12:00 AM EST from Last 3 Months or Most Recently Relevant to Health Maintenance Insurance MEDICARE
--- OUTSIDE RECORDS SUMMARY | 2025-03-31 21:03 | XMS_ITS | Encounter Summary ---
Author Organization [employer] Address [address] [place] [address] [address] [place] [address] Care Team Providers Care Support Team Assoc Name Role Phone Unavailable Primary Care Provider Unavailabl e Encounter Details Date Type Department Care Team (Latest Contact Info) Description 09/11/2021 Abstract [facility] CONVERSIONS Dental, Provider, DDS Social History Tobacco Use Types Packs/Day Years Used Date Smoking Tobacco: Never Assessed Sex and Gender Information Value Date Recorded Sex Assigned at Male 05/28/2022 10:37 AM EDT Legal Sex Male 10:37 AM EDT Gender Identity Choose not to disclose 10:37 AM EDT Sexual Orientation Choose not to disclose 2021 10:37 AM EDT documented as of this encounter Plan of Treatment Upcoming Encounters Date Type Department Care Team (Late st Contact Info) Description 04/19/2025 1:30 PM EDT Office Visit [facility] ADULT DENTAL [address] [place] [address] Evan Zambrano, DMD [address] [place] [address] documented as of this encounter Visit Diagnoses Not on filedocumented in this encounter
== END 2025-03-31 21:00 | disposition left against medical advice (07) ==
PROVIDERS: Emergency Provider Emergency Medicine
DX: H92.01 Otalgia, right ear (principal); H93.91 Unspecified disorder of right ear; Z53.21 Procedure and treatment not carried out due to patient leaving prior to being seen by health care provider
CPT/HCPCS: 99281

== ENCOUNTER 2025-04-01 08:14 | Emergency (ER) | payer MEDICARE, SELFPAY ==
--- OUTSIDE RECORDS SUMMARY | 2024-01-02 06:00 | XMS_ITS ---
Author Organization [facility] marietta Ogden Address [address] [place] [address] Care Team Providers Care Residential Door Unit Installer Name Role Phone Elian Wolfe Unavailable [phone] Social History Tobacco Use: Social History Observation Description Date Details (start date - stop date) Current Smoker NA - NA Tobacco Use/Smoking Question Answer Notes Are you a: current smoker Alcohol Screen Question Answer Notes Did you have a drink containing alcohol in the p ast year? No Points 0 Interpretation Negative Tobacco use other than smoking: Question Answer Notes Are you an other tobacco user? Yes V ape Vital Signs Height 5 ft 9 in in 01/02/2024 Weight 162 lbs 01/02/2024 BMI 23.92 kg/m2 01/02/2024 Encounters Encounter Location Date Provider Diagnosis [facility] [address] [address] 01/02/2024 Elian Wolfe Plan Of Treatment No Information Progress Notes * Deni FUDOB:1950 (75 yo M)Acc No.[id number]:01/02/2024 Progress Notes Patient: Deni GALLOWAY Provider: Lorenza Wolfe DPM :1950 A ge:74 Y S ex:Male Date:01/02/2024 Address:[address] [facility], [address] , [place], [place] Subjective: * Chief Complaints: * * Medical History: A djustment reaction to chronic stress, Unspecified Psychosis, Paranoid, Cataracts, Smoker, Left Inguinal Hernia. * Surgical History: H ernia Repair . * Social History: T obacco Use: T obacco Use/Smoking A re you a: c urrent smoker Tobacco use other than smoking A re you an other tobacco user? Y es Vape D rugs/Alcohol: A lcohol Screen D id you have a drink containing alcohol in the past year? N o P oints 0 I nterpretation N egative M iscellaneous: M arital status: single. Objective: * Vitals: H t: 5 ft 9 in, Wt:162, BMI:23.92, Ht-cm: 175.26 cm, Wt-k.48 kg. Assessment: Plan: * Treatment: * Images: * The named appointment provid er may or may not be the originator of this progress note, and it is not deemed complete until electronically signed by the appointment provider. Sign off status: Pending * Provider: Lorenza Wolfe DPM Date: 0 01/02/2024 Generated for Kadie osei/Devi/Praful on: 0 04/01/2025 09:01 AM EDT
[2025-04-01 08:16] VITALS: BP 148/85; PULSE 99; RESP 18; TEMP 36.3; O2SAT 96; BMI 22.1
--- OUTSIDE RECORDS SUMMARY | 2025-04-01 09:01 | XMS_ITS | Encounter Summary ---
Author Organization [employer] Address [address] [place] [address] [address] [place] [address] Care Team Providers Care Edge Drummer Name Role Phone Unavailable Primary Care Provider Unavailabl e Encounter Details Date Type Department Care Team (Latest Contact Info) Description 09/11/2021 Abstract [facility] CONVERSIONS Dental, Provider, DDS Social History Tobacco [...] Description 04/19/2025 1:30 PM EDT Office Visit [facility] ADULT DENTAL [address] [place] [address] Evan Zambrano, DMD [address] [place] [address] documented as of this encounter Visit Diagnoses Not on filedocumented in this encounter
--- OUTSIDE RECORDS SUMMARY | 2025-04-01 09:01 | XMS_ITS | Clinical Summary ---
Author Organization [employer] Address [address] [place] [address] Care Team Providers Care Greeting Card Editor Name Role Phone Unavailable Primary Care Provider [...] Description 04/19/2025 1:30 PM EDT Office Visit [facility] ADULT DENTAL [address] [place] [address] Evan Zambrano DMD [address] [place] [address] Health Maintenance Due Date Last Done Comments [...]
--- OUTSIDE RECORDS SUMMARY | 2025-04-01 09:01 | XMS_ITS | Patient Health Record ---
Author Organization [facility] m[facility] [place] Address [address] [address] Care Team Providers Care Motel Keeper Name Role Phone Elian Wolfe Unavailable [phone] Reason For Referral No Information Social History [...] Medicare [employer] [address] [place] [address] [id number] Deni Garcia Self - patient is the insured Medical (General) History Medical History History ICD Code Adjustment reaction to chronic stress Unspecified Psychosis Paranoid Cataracts Smoker Left Inguinal Hernia Surgical History Surgery Date(Month/Year) Hernia Repair
--- NOTE | 2025-04-01 09:03 | ED.EAR ---
HPI - Ear Problem General Chief complaint: Ear Problems Stated complaint: hearing issues Time Seen by Provider: 04/01/25 08:34 Source: patient, RN notes reviewed and old records reviewed Mode of arrival: ambulatory Limitations: no limitations History of Present Illness ED Provider: Flynn Perez PA-C HPI Narrative: 75-year-old male without significant medical history presents to the ED due to 1 week of hearing loss in the right ear. Patient states he noticed a brief episode of pain in the right ear approximately 1 week ago that lasted for a few minutes, thought it maybe due to using ear plugs at night for noise, used OTC earwax drops without relief and describes hearing loss as muffled sounds. Denies fevers, chills, dizziness, lightheadedness, otalgia, otorrhea, chest pain, shortness of breath, abdominal pain, nausea, vomiting, black/tarry stool Related Data Home Medications ?Medication ?Instructions ?Recorded ?Confirmed No Known Home Meds 03/18/23 12/18/23 Previous Rx's ?Medication ?Instructions ?Recorded olanzapine 5 mg tablet 5 mg PO BEDTIME 30 days #30 tabs 01/16/24 Allergies Allergy/AdvReac Type Severity Reaction Status Date / Time No Known Allergies Allergy Verified 04/01/25 08:21 Review of Systems Review of Systems: CONST: Negative for fever, body aches and chills. HENT: Negative for neck pain/stiffness, headache, congestion, sore throat, swelling. POS R ear hearing loss EYES: Negative for discharge/pain or vision changes. RESP: Negative for cough/hemoptysis and shortness of breath. CV: Negative chest pain, difficulty breathing, palpitations. ABD: Negative pain, nausea, vomiting. : Negative increase frequency, dysuria, blood in urine or stool. MUSC: Negative for muscle aches, edema. SKIN: Negative rash, lesions/sores. NEURO: Negative headache, dizziness, weakness. Yes all other systems are reviewed and are negative PMFSH Past Medical History Attestation statement: The following information was validated with the patient. Source: old records reviewed and nursing notes reviewed Medical History Adjustment reaction to chronic stress Unspecified psychosis Paranoid Hx of cataract Smoker Left inguinal hernia Surgical History History of hernia repair Social History Social History Household Members: None Housing: Apartment Do you presently have visiting nurse or other home services: No Alcohol intake: current Alcohol intake frequency: does not drink Patient Tobacco Use Status: Never used Tobacco Tobacco use type: Cigarette Cigarette Packs Per Day: 0.5 Cigarettes Per Day: 10.0 Years Smoked: 40 e-Cigarette/Vaping Use: Currently Using Second Hand Smoke Exposure: No Advance Directives: No Advance Directives Information Provided: Yes service: No Current occupational status: retired Current occupational exposures/hazards: No Sexual orientation: Straight/Heterosexual Cognitive needs: No Hearing needs: No Vision needs: Yes Physical Exam Vital Signs: Vital Signs: Last Vital Signs Temp 97.4 F 04/01/25 08:16 Pulse 99 04/01/25 08:16 Resp 18 04/01/25 08:16 BP 148/85 H 04/01/25 08:16 Pulse Ox 96 04/01/25 08:16 O2 Del Method Room Air 04/01/25 08:16 BMI result Body Mass Index 22.1 GENERAL APPEARANCE: ?AxOx4, generally well-appearing, no acute distress. HEENT: ?NC, AT. MMM. EOMI, clear conjunctiva, oropharynx clear. Tympanic membranes unable to be visualized in both right or left ear due to compacted cerumen, no erythema or edema of external canal, no discharge bilaterally, no tragal tenderness NECK: ?Supple without lymphadenopathy.? No stiffness or restricted ROM. HEART:? Normal rate and regular rhythm, normal S1/S1, no m/r/g LUNGS:? CTAB, moving air well. No crackles or wheezes are heard. ABDOMEN: ?Soft, nontender, nondistended with good bowel sounds heard. BACK: No CVAT, no obvious deformity. EXTREMITIES: ?Without cyanosis, clubbing or edema. NEUROLOGICAL: ?Grossly nonfocal. Alert and oriented, moving all 4 extremities. Observed to ambulate with normal gait. Skin: ?Warm and dry without any rash. Medications Administered Discontinued Medications Generic Name Dose Route Start Last Admin Trade Name Freq PRN Reason Stop Dose Admin Carbamide Peroxide 5 drop 04/01/25 09:03 04/01/25 09:23 Carbamide Peroxide 6.5% Otic 15 Ml Drpbtl EAR-BOTH 04/01/25 09:04 5 drop ONCE ONE Administration Medical Decision Making Medical Decision Making MDM Narrative: 75-year-old male without significant medical history presents to the ED due to 1 week of hearing loss in the right ear. Patient states he noticed a brief episode of pain in the right ear approximately 1 week ago that lasted for a few minutes, thought it maybe due to using ear plugs at night for noise, used OTC earwax drops without relief and describes hearing loss as muffled sounds. On physical exam impacted cerumen can be visualized in bilateral ears, unable to visualize bilateral tympanic membranes. No erythema or edema of external canal, no tragal pain, no pain palpating the mastoids, no erythema Debrox drops were placed in bilateral ears and allowed to sit for approximately 15 minutes, I extensively irrigated B/L ear canals with copious amounts of dark cerumen. After irrigation I was able to visualize B/L tympanic membranes which had appropriate light reflex, no erythema, no edema, no air-fluid levels. Patient felt relief and restored hearing after procedure. I encouraged patient to follow up with his primary care provider. Patient feels well enough to go home for self-care. Patient is in agreement with the plan. Differential Diagnosis Differential Diagnoses: The differential diagnosis associated with the presentation includes Mastoiditis Otitis externa Otitis media Cerumen impaction Admission/Observation Consideration of admission/observation: Escalation of care including admission/observation considered External Record Review External record reviewed: Inpatient record, Office record and Outpatient record Discharge Plan Discharge Clinical Impression: Bilateral impacted cerumen Patient Disposition: Home, Self-Care Additional Instructions: You were evaluated in the emergency department today due to muffled hearing sounds of the right ear. On physical exam you had moderate impaction of ear wax of both ears, was unable to visualize the eardrum. Debrox drops were placed in both ears, and allowed to sit for approximately 20 minutes. I extensively irrigated both ears and got a good amount of dark colored wax. After irrigation I was able to visualize both tympanic membranes which looked nice and healthy without redness or swelling. You stated you use your plugs for sleep, I recommend not using these anymore as these can push ear wax deep in, however if you have to use them please refrain for the next 24 hours while the ear tissue heals. The left ear had very minimal scant bleeding after removing the wax, you may noticed some light brownish/clear drainage over the next 24 hours. Please return to the emergency department if you experience fevers over 100.4?, chest pain, shortness of breath, ear pain, increased drainage from the ears, dizziness, lightheadedness or any other new/worsening/concerning symptoms Prescriptions: No Action olanzapine 5 mg Tablet 5 mg PO BEDTIME 30 Days Qty: 30 0RF No Known Home Meds Print Language: [place]errat[place]
[2025-04-01] MEDS: Carbamide Peroxide 6.5% Otic 15 ML DRPBTL 5 DROP EAR-BOTH (09:23)
[2025-04-01 10:16] VITALS: BP 148/85; PULSE 99; RESP 18; TEMP 36.3; O2SAT 96
== END 2025-04-01 10:17 | disposition home or self-care (01) ==
PROVIDERS: Emergency Provider Emergency Medicine
DX: H61.23 Impacted cerumen, bilateral (principal); H92.03 Otalgia, bilateral
CPT/HCPCS: 99283; 99284